=== PATIENT | female | born 1945 | race Caucasian/White ===

== ENCOUNTER → 2016-07-22 | Outpatient (CLI) | payer MEDICARE, OTHER ==
[~2016-07-22] MED LIST: ALEN70TA4 PO; ALPR-411 PO; AMLO-114 PO; APR25 PO; ASPEC325 PO; ASPI325T39 PO; CALC500C70 PO; CARB1TAB38 PO; CARB200T PO; CHOL100010 PO; CHOL20009 PO; DULO-24 PO; FURO-85 PO; FURO20TA PO; IMDSR30 PO; LEVO112T4 PO; LEVO125T72 PO; METO100T14 PO; METO50TA16 PO; MULT-506 PO; OMEP20CA59 PO; ONDA4TAB7 SL; PRLSR20 PO; SIMV20TA2 PO; TELM80TA PO; sodium chloride tab PO
--- NOTE | 2016-07-22 10:19 | DIAGNOSTIC IMAGING REPORT ---
DUPLEX RENAL ARTERY ultrasound HISTORY: I10 Hypertension COMPARISON STUDY: None. FINDINGS: The right kidney measures 9.8 cm and the left kidney measures 11.3 cm. There is a 9 mm exophytic lesion within the right kidney which likely represents a cyst. No hydronephrosis. The peak systolic velocity within the mid right renal artery was 120 cm/s and within the mid left renal artery was 154 cm/s. Resistive indices of the bilateral renal arcuate arteries were less than 0.8. Bilateral renal veins are patent. IMPRESSION: No evidence for renal artery stenosis. Electronically signed by: Tera Zamudio M.D. 07/22/2016 10:17 AM
== END | disposition home or self-care (01) ==
LOC: C.ULTR 09:16
PROVIDERS: ATTEND Internal Medicine
DX: I10 Essential (primary) hypertension (principal)

== ENCOUNTER → 2016-08-06 | Outpatient (CLI) | payer MEDICARE, OTHER ==
[2016-08-06 17:34] LABS: BLOOD UREA NITROGEN 12 mg/dl (7-18); BUN/CREATININE RATIO 14.7 (10-20); CALCIUM 8.9 mg/dl (8.5-10.1); CARBON DIOXIDE 31 mmol/L (21-32); CHLORIDE 98 mmol/L (98-107); CREATININE 0.79 mg/dl (0.60-1.20); GLUCOSE 91 mg/dl (70-99); PHOSPHORUS 3.3 mg/dl (2.5-4.9); SODIUM 137 mmol/L (136-145)
== END | disposition home or self-care (01) ==
LOC: C.LABBFT 12:43
PROVIDERS: ATTEND Internal Medicine Nephrology
DX: I10 Essential (primary) hypertension (principal); E87.1 Hypo-osmolality and hyponatremia

== ENCOUNTER → 2016-09-22 | Outpatient (CLI) | payer MEDICARE ==
--- NOTE | 2016-09-22 15:30 | MAMMOGRAPHY REPORT ---
BILATERAL DIGITAL SCREENING MAMMOGRAM WITH CAD: 09/22/2016 TECHNIQUE: Current study was also evaluated with a Computer Aided Detection (CAD) system. Bilatera l CC and MLO views were obtained. COMPARISON: Comparison is made to exams dated: 09/22/2015 mammogram, 09/19/2014 mammogram, 09/11/2012 ma mmogram, 09/08/2011 mammogram, and 09/12/2013 mammogram - [facility]. BREAST COMPOSITION: There are scattered areas of fibroglandular density in both breasts. FINDINGS: No suspicious masses, calcifications, or areas of architectural distortion are noted in e ither breast. There has been no significant interval change compared to prior exams. IMPRESSION: ACR BI-RADS CATEGORY 1: NEGATIVE There is no mammographic evidence of malignancy. A 1 year screening mammogram is recommended. The p atient will receive written notification of the results. Approximately 10% of breast cancers are not detected with mammography. A negative mammographic repor t should not delay biopsy if a clinically suggestive mass is present. Jewels Brooks M.D. ah/:09/22/2016 12:40:59 Shore Worker: Debora WHITE(Daniel)(M), [facility] letter sent: Normal 1/2 BI-RADS Code: ACR BI-RADS Category 1: Negative
== END | disposition home or self-care (01) ==
LOC: C.MAMM 11:28
PROVIDERS: ATTEND Internal Medicine
DX: Z12.31 Encounter for screening mammogram for malignant neoplasm of breast (principal)

== ENCOUNTER → 2016-10-06 | Outpatient (CLI) | payer MEDICARE ==
[2016-10-06 13:03] LABS: BLOOD UREA NITROGEN 9 mg/dl (7-18); GLUCOSE 93 mg/dl (70-99)
[2016-10-06 13:04] LABS: BUN/CREATININE RATIO 13.6 (10-20); CALCIUM 8.8 mg/dl (8.5-10.1); CARBON DIOXIDE 33 mmol/L (21-32); CHLORIDE 96 mmol/L (98-107); CREATININE 0.69 mg/dl (0.60-1.20); PHOSPHORUS 3.6 mg/dl (2.5-4.9); SODIUM 134 mmol/L (136-145)
== END | disposition home or self-care (01) ==
LOC: C.LABBFT 11:17
PROVIDERS: ATTEND Internal Medicine Nephrology
DX: I10 Essential (primary) hypertension (principal); E87.1 Hypo-osmolality and hyponatremia; E03.9 Hypothyroidism, unspecified

== ENCOUNTER → 2016-10-21 | Outpatient (CLI) | payer MEDICARE ==
[~2016-10-21] MED LIST changes: -CARB1TAB38 PO; +CARB400T3 PO
[2016-10-21 17:48] LABS: BLOOD UREA NITROGEN 9 mg/dl (7-18); BUN/CREATININE RATIO 11.3 (10-20); CALCIUM 8.5 mg/dl (8.5-10.1); CARBON DIOXIDE 29 mmol/L (21-32); CHLORIDE 100 mmol/L (98-107); CREATININE 0.78 mg/dl (0.60-1.20); GLUCOSE 99 mg/dl (70-99); POTASSIUM 3.6 mmol/L (3.5-5.1); SODIUM 136 mmol/L (136-145)
[2016-10-21 17:49] LABS: PHOSPHORUS 3.2 mg/dl (2.5-4.9)
== END | disposition home or self-care (01) ==
LOC: C.LABBFT 12:20
PROVIDERS: ATTEND Internal Medicine Nephrology
DX: I10 Essential (primary) hypertension (principal); E87.1 Hypo-osmolality and hyponatremia; E55.9 Vitamin D deficiency, unspecified

== ENCOUNTER → 2016-11-15 | Outpatient (CLI) | payer MEDICARE ==
[2016-11-15 12:19] LABS: BASO % 0.4 %; BASO ABS # 0.02 K/uL (0-0.2); COMPLETE YES; EOS % 2.2 %; HEMATOCRIT 38.5 % (37-47); LYMPH % 41.2 %; LYMPH ABS # 2.05 K/uL (1.2-3.4); MEAN CELL VOLUME 88.1 fL (80-100); MEAN CORPUSCULAR HEMOGLOBIN 30.7 pg (25-34); MEAN CORPUSCULAR HGB CONC 34.8 g/dl (32-36); MEAN PLATELET VOLUME 9.8 fL (7.4-10.4); MONO % 7.2 %; PLATELET COUNT 313 K/uL (130-400); RED BLOOD COUNT 4.37 M/uL (4.2-5.4); WHITE BLOOD COUNT 4.98 K/uL (4.8-10.8)
[2016-11-15 12:49] LABS: ALB/GLOB RATIO 1.1 (0.9-2); ALKALINE PHOSPHATASE 67 U/L (45-117); ALT/SGPT 21 U/L (12-78); AST/SGOT 13 U/L (15-37); BLOOD UREA NITROGEN 10 mg/dl (7-18); BUN/CREATININE RATIO 14.8 (10-20); CALCIUM 8.7 mg/dl (8.5-10.1); CARBON DIOXIDE 29 mmol/L (21-32); CHLORIDE 99 mmol/L (98-107); CREATININE 0.69 mg/dl (0.60-1.20); ESTIMATED AVERAGE GLUCOSE 117 mg/dl; GLUCOSE 92 mg/dl (70-99); HA1C FLAG Normal (Normal); HDL CHOLESTEROL 73 mg/dl; SODIUM 134 mmol/L (136-145)
[2016-11-15 13:00] LABS: CHOLESTEROL 174 mg/dl (0-200); CHOLESTEROL/HDL RATIO 2.4; LDL CHOLESTEROL CALCULATED 74 mg/dl; THYROID STIMULATING HORMONE 0.961 uIu/ml (0.300-4.500); TRIGLYCERIDES 134 mg/dl (0-150); VERY LOW DENSITY LIPOPROT CALC 27 mg/dl
[2016-11-15 13:20] LABS: URINE APPEARANCE CLEAR (CLEAR); URINE BILIRUBIN NEG (NEG); URINE COLOR YELLOW; URINE EPITHELIAL CELL AUTO >30 /lpf (0-5); URINE NITRITE NEG (NEG); URINE SPECIFIC GRAVITY 1.016 (1.000-1.030); UROBILINOGEN NEG (NEG); ZZUR CULT IF INDIC CLEAN CATCH YES
[2016-11-15 13:33] LABS: MANUAL MICROSCOPIC REQUIRED? NO; REVIEW REQ? NO
--- NOTE | 2016-11-22 09:19 | CODING QUERY MEDICAL NECESSITY ---
CQSUPPORTING DIAGNOSIS NEEDED A supporting diagnosis is required for the test/procedure performed on this patient in order for us to be reimbursed by the patient's insurance. Please provide a supporting diagnosis for the following test/procedure listed below next to the test name along with your signature. *If there is no additional diagnosis for this patient that would support the following test/procedure please document that below next to the test/procedure. Test(s)/Procedure(s) that require a supporting diagnosis: SHANT 11/15/16 GLYCATED HEMOGLOBIN Provider Signature: Date: Thank you Alayna Kemp [employer] Once completed, please kindly fax back to [phone] For questions please call [phone]
== END | disposition home or self-care (01) ==
LOC: C.LABBFT 10:12
PROVIDERS: ATTEND Internal Medicine
DX: G40.909 Epilepsy, unspecified, not intractable, without status epilepticus (principal); E78.5 Hyperlipidemia, unspecified; D72.819 Decreased white blood cell count, unspecified; E55.9 Vitamin D deficiency, unspecified; R73.03 Prediabetes; E03.9 Hypothyroidism, unspecified

== ENCOUNTER → 2017-01-28 | Day surgery (SDC) | payer BC, MEDICARE, OTHER ==
[2017-01-24 10:51] VITALS: Ht 160 cm; Wt 72.7 kg
[~2017-01-28] VITALS: Ht 160 cm; Wt 72.7 kg
[~2017-01-28] MED LIST changes: -APR25 PO; -ASPEC325 PO; +CARB1TAB38 PO; -CARB200T PO; -CARB400T3 PO; -CHOL100010 PO; -FURO20TA PO; -IMDSR30 PO; -LEVO125T72 PO; +LIDOCAINE HCL 2% 2 ML VIAL (20MG/ML) ONE; -METO50TA16 PO; -OMEP20CA59 PO; -ONDA4TAB7 SL; +PROPOFOL IV EMULSION 10 MG/ML 20 ML VIAL IV ONE; -sodium chloride tab PO
[2017-01-28 09:20] VITALS: TEMP 37
--- NOTE | 2017-01-28 10:25 | Endo History and Physical ---
History & Physical Date of Service: Jan 28, 2017. Chief Complaint: screening Referring Physician: Dr. David Bishop History of Present Illness 72 yo CF who presents for screening colonoscopy. Past Surgical History Hx Cardiac Surgery: No Hx Internal Defibrillator: No Hx Pacemaker: No Hx Abdominal Surgery: Yes (RAHEL, TUBAL LIGATION) Hx of Implantable Prosthesis: No Hx Post-Op Nausea and Vomiting: No Hx Cancer Surgery: No Hx Thoracic Surgery: No Hx Orthopedic: No Hx Urinary Tract Surgery: No Family History Colon CA Social History Smoking Status: Former Smoker Hx Substance Use: No Hx Alcohol Use: Yes (VERY RARELY) Allergies Coded Allergies: No Known Allergies (Verified , 01/28/17) Current Medications Reported Home Medications Medications Dose Route/Sig Max Daily Dose Days Date Category Vitamin D (Cholecalciferol) 2,000 Unit Tab 1 Tab PO BID 01/24/17 Reported Micardis (Telmisartan) 80 Mg Tab 80 Mg PO QAM 01/24/17 Reported Zocor (Simvastatin) 20 Mg Tab 20 Mg PO QPM 01/24/17 Reported Prilosec (Omeprazole) 20 Mg Capcr 20 Mg PO DAILY PRN 01/24/17 Reported Multivitamin (Multivitamins) Tab 1 Tab PO QAM 01/24/17 Reported Lopressor (Metoprolol Tartrate) 100 Mg Tab 100 Mg PO BID 01/24/17 Reported Levothyroxine Sodium 112 Mcg Tab 1 Tab PO QAM 90 01/24/17 Reported Lasix (Furosemide) 20 Mg Tab 20 Mg PO BID 01/24/17 Reported Cymbalta (Duloxetine HCl) 20 Mg Cap 1 Cap PO QAM 30 01/24/17 Reported Tegretol Xr (Carbamazepine) 400 Mg Tabcr 400 Mg PO BID 01/24/17 Reported Os-David 500 Plus D (Calcium/Vitamin D) Tab 1 Tab PO QAM 01/24/17 Reported Aspirin Ec (Aspirin) 325 Mg Tab 325 Mg PO QAM 01/24/17 Reported Norvasc (Amlodipine Besylate) 10 Mg Tab 10 Mg PO QAM 01/24/17 Reported Xanax (Alprazolam) 0.5 Mg Tab 0.5 Mg PO Q6H PRN 01/24/17 Reported Fosamax (Alendronate Sodium) 70 Mg Tab 70 Mg PO WK 01/24/17 Reported Vital Signs Weight (Kilograms): 72.73 Height (Feet): 5 Height (Inches): 3 Date Time Temp Pulse Resp B/P (MAP) Pulse Ox O2 Delivery O2 Flow Rate FiO2 01/28/17 09:20 37 58 20 180/79 (112) 96 Room Air Physical Exam General Appearance: WD/WN, no apparent distress Respiratory/Chest: Auscultation: breath sounds normal Cardiovascular: Heart Auscultation: RRR Abdomen: Bowel Sounds: normal Inspection & Palpation: soft, non-distended, no tenderness, guarding & rebound Assessment and Plan Assessment: 72 yo CF who presents for screening colonoscopy. Plan: Proceed with colonoscopy.
--- NOTE | 2017-01-28 10:42 | Discharge Instructions ---
Endoscopy Patient Instructions Date / Procedure(s) Performed Jan 28, 2017. Colonoscopy Allergy Information Coded Allergies: No Known Allergies (Verified , 01/28/17) Discharge Date / Findings Jan 28, 2017. Diverticulosis Internal hemorrhoids Medication Instructions Stopped Medication(s): took ASA yesterday OK to resume all medications today as prescribed Reported Home Medications Medications Dose Route/Sig Max Daily Dose Days Date Category Vitamin D (Cholecalciferol) 2,000 Unit Tab 1 Tab PO BID 01/24/17 Reported Micardis (Telmisartan) 80 Mg Tab 80 Mg PO QAM 01/24/17 Reported Zocor (Simvastatin) 20 Mg Tab 20 Mg PO QPM 01/24/17 Reported Prilosec (Omeprazole) 20 Mg Capcr 20 Mg PO DAILY PRN 01/24/17 Reported Multivitamin (Multivitamins) Tab 1 Tab PO QAM 01/24/17 Reported Lopressor (Metoprolol Tartrate) 100 Mg Tab 100 Mg PO BID 01/24/17 Reported Levothyroxine Sodium 112 Mcg Tab 1 Tab PO QAM 90 01/24/17 Reported Lasix (Furosemide) 20 Mg Tab 20 Mg PO BID 01/24/17 Reported Cymbalta (Duloxetine HCl) 20 Mg Cap 1 Cap PO QAM 30 01/24/17 Reported Tegretol Xr (Carbamazepine) 400 Mg Tabcr 400 Mg PO BID 01/24/17 Reported Os-David 500 Plus D (Calcium/Vitamin D) Tab 1 Tab PO QAM 01/24/17 Reported Aspirin Ec (Aspirin) 325 Mg Tab 325 Mg PO QAM 01/24/17 Reported Norvasc (Amlodipine Besylate) 10 Mg Tab 10 Mg PO QAM 01/24/17 Reported Xanax (Alprazolam) 0.5 Mg Tab 0.5 Mg PO Q6H PRN 01/24/17 Reported Fosamax (Alendronate Sodium) 70 Mg Tab 70 Mg PO WK 01/24/17 Reported Provider Instructions Activity Restrictions - No exercising or heavy lifting for 24 hours. - Do not drink alcohol the day of the procedure. - Do not drive a car or operate machinery until the day after the procedure. - Do not make any important decisions or sign important papers in 24 hours after the procedure. Following Day: - Return to full activity which may include returning to work/school. Diet Start your diet with liquids and light foods (jello, soup, juice, toast). Then eat your usual diet if not nauseated. Treatment For Common After Affects For mild abdominal pain, bloating, or excessive gas: - Rest - Eat lightly - Lie on right side Follow-Up Information Follow-up with Dr. David Bishop as scheduled Anesthesia Information What You Should Know You have had a procedure that required some medicine to reduce anxiety and discomfort. This treatment is called moderate sedation. After receiving the treatment, you may be sleepy, but you will be able to breathe on your own. The effects of the treatment may last for several hours. Follow these instructions along with Activity/Diet recommendations noted above: * Do NOT do anything where dizziness or clumsiness would be dangerous. * Rest quietly at home today, then you can be up and about tomorrow. * Have a responsible person stay with you the rest of today. * You may have had an I.V. today. If so, you may take the dressing off later today. Recommendations Call your doctor if: * Trouble breathing * Continuous vomiting for more than 24 hours * Temperature above 101 degrees * Severe abdominal pain or bloating * Pain not relieved by pain medicine ordered * There is increased drainage or redness from any incision * A large amount of rectal bleeding greater than 2-3 tablespoons. (If you had a polyp/s removed or have hemorrhoids, a small amount of blood - from the rectum is to be expected.) * You have any unanswered questions or concerns. IN THE EVENT OF A SERIOUS EMERGENCY, GO TO THE NEAREST EMERGENCY ROOM Your discharge instructions were prepared by provider Marty Cade. Patient Instructions Signature Page Jossie Colón Patient (or Guardian) Signature/Date: I have read and understand the instructions given to me by my caregivers. Caregiver/RN/Doctor Signature/Date: The above-named patient and/or guardian has received patient instructions on this date. + Original Patient Signature Page (only) stays with chart. Please make copy for patient.
--- NOTE | 2017-01-28 10:46 | Anesthesiology Progress Note ---
Anesthesia Post Op Note Date & Time Jan 28, 2017 at 10:46 Vital Signs Pain Intensity: 0 Vital Signs Past 12 Hours Date Time Temp Pulse Resp B/P (MAP) Pulse Ox O2 Delivery O2 Flow Rate FiO2 01/28/17 09:20 37 58 20 180/79 (112) 96 Room Air Notes Mental Status: alert / awake / arousable, participated in evaluation Pt Amnestic to Procedure: Yes Nausea / Vomiting: adequately controlled Pain: adequately controlled Airway Patency, RR, SpO2: stable & adequate BP & HR: stable & adequate Hydration State: stable & adequate Anesthetic Complications: no major complications apparent
--- NOTE | 2017-01-28 10:49 | GI REPORT ---
Procedure Date: 01/28/2017 10:06 AM Procedure: Colonoscopy Indications: High risk colon cancer surveillance: Personal history of colonic polyps Medicines: Monitored Anesthesia Care Complications: No immediate complications. Estimated Blood Loss: Estimated blood loss: none. Procedure: Pre-Anesthesia Assessment: - Prior to the procedure, a History and Physical was performed, and patient medications and allergies were reviewed. The patient's tolerance of previous anesthesia was also reviewed. The risks and benefits of the procedure and the sedation options and risks were discussed with the patient. All questions were answered, and informed consent was obtained. Prior Anticoagulants: The patient has taken aspirin, last dose was 1 day prior to procedure. ASA Grade Assessment: III - A patient with severe systemic disease. After reviewing the risks and benefits, the patient was deemed in satisfactory condition to undergo the procedure. After I obtained informed consent, the scope was passed under direct vision. Throughout the procedure, the patient's blood pressure, pulse, and oxygen saturations were monitored continuously. The Scope was introduced through the anus and advanced to the terminal ileum. The colonoscopy was performed without difficulty. The patient tolerated the procedure well. The quality of the bowel preparation was good. The terminal ileum, ileocecal valve, appendiceal orifice, and rectum were photographed. Findings: Multiple small-mouthed diverticula were found in the sigmoid colon. Non-bleeding internal hemorrhoids were found during retroflexion. The hemorrhoids were small. Impression: - Diverticulosis in the sigmoid colon. - Non-bleeding internal hemorrhoids. - No specimens collected. Recommendation: - Resume previous diet. - Continue present medications. - Repeat colonoscopy in 5 years for surveillance. - Return to primary care physician as previously scheduled. Marty Cade DO 01/28/2017 10:48:28 AM This report has been signed electronically. Note Initiated On: 01/28/2017 10:06 AM I attest to the content of the Intraoperative Record and orders documented therein, exceptions below
[2017-01-28 11:18] VITALS: BP 147/81; PULSE 47; O2SAT 98
== END | disposition home or self-care (01) ==
LOC: C.GI 08:53
PROVIDERS: ATTEND Internal Medicine
DX: Z12.11 Encounter for screening for malignant neoplasm of colon (principal); Z86.010 Personal history of colon polyps; K57.30 Diverticulosis of large intestine without perforation or abscess without bleeding; K64.8 Other hemorrhoids; Z80.0 Family history of malignant neoplasm of digestive organs; Z87.891 Personal history of nicotine dependence; Z79.82 Long term (current) use of aspirin; Z79.899 Other long term (current) drug therapy

== ENCOUNTER 2017-02-08 05:14 | Observation (INO) | payer MEDICARE ==
[~2017-02-08] VITALS: Ht 160 cm; Wt 76.5 kg
[~2017-02-08 05:14] MED LIST changes: -LIDOCAINE HCL 2% 2 ML VIAL (20MG/ML) ONE; -PROPOFOL IV EMULSION 10 MG/ML 20 ML VIAL IV ONE
[2017-02-08 06:26] LABS: HEMATOCRIT 40.4 % (37-47); MEAN CELL VOLUME 87.6 fL (80-100); MEAN CORPUSCULAR HEMOGLOBIN 30.4 pg (25-34); MEAN CORPUSCULAR HGB CONC 34.7 g/dl (32-36); MEAN PLATELET VOLUME 9.3 fL (7.4-10.4); PLATELET COUNT 297 K/uL (130-400); RED BLOOD COUNT 4.61 M/uL (4.2-5.4); WHITE BLOOD COUNT 8.97 K/uL (4.8-10.8)
[2017-02-08 06:33] LABS: CALCIUM 8.3 mg/dl (8.5-10.1); CREATININE 0.82 mg/dl (0.60-1.20); POTASSIUM 3.3 mmol/L (3.5-5.1)
[2017-02-08 06:34] LABS: INR 0.9 (0.9-1.1); PROTHROMBIN TIME (PATIENT) 10.1 SECONDS (9.0-12.0)
[2017-02-08] MEDS ORDERED: LABETALOL HCL IV 5 MG/ML 20ML IV STA ×2 (06:37→07:43)
[2017-02-08 06:38] LABS: CKMB/CK RATIO 1.2 (0-3.0)
--- NOTE | 2017-02-08 06:38 | DIAGNOSTIC IMAGING REPORT ---
CHEST ONE VIEW PORTABLE CLINICAL HISTORY: Indigestion. COMPARISON STUDY: Chest radiograph November 11, 2010. FINDINGS: Lung volumes are normal. There is no pneumothorax or pleural effusion. Linear left basilar opacities are suggestive of atelectasis. There is no evidence of pulmonary edema. Dextroscoliosis of the thoracic spine is noted. There are surgical clips within the lower neck. Cardiomediastinal silhouette is stable. There is no consolidation. IMPRESSION: No acute cardiopulmonary findings. Electronically signed by: Jesus Carter M.D. 02/08/2017 6:37 AM Dictated Date/Time: 02/08/2017 6:35 AM
--- NOTE | 2017-02-08 07:20 | EMERGENCY ROOM VISIT NOTE ---
History Report prepared by Clark: Alexandra Rizo Under the Supervision of: Dr. Abdulaziz Roger M.D. First contact with patient: 06:31 Chief Complaint: RAPID HEART RATE Stated Complaint: HEART RACING,HIGH BLOOD PRESSURE Nursing Triage Summary: Pt complains of indigestion since dinner after eating banana bread. Then pt woke up with palpitations at 130am. History of Present Illness The patient is a 72 year old female who presents to the Emergency Room with complaints of resolved palpitations that started 5 hours ago, around 0130. The patient states that it felt like her heart was racing. She did not check her pulse but she states that she could feel it in her neck. She states that her face felt "flushed" with the palpitations. The feeling lasted for several hours but she feels well now. The patient has never experienced this in the past. The patient is also experiencing hypertension. She takes medication twice a day for hypertension but she is unsure of what the medication is called. The patient denies headaches, chest pain, and any weakness of her extremities. The patient adds that she experienced "indigestion" last night after dinner but that resolved after she belched a few times. She is also experiencing some mild abdominal pain. The patient denies any excessive coffee or alcohol consumption last night. Patient took 324mg ASA prior to arrival. Source of History: patient Onset: 5 hours ago, around 0130 Position: chest Quality: other (palpitations) Timing: resolved Associated Symptoms: No headache, No chest pain, No weakness Note: "flushed" feeling, hypertension Review of Systems See HPI for pertinent positives & negatives. A total of 10 systems reviewed and were otherwise negative. Past Medical & Surgical Medical Problems: (1) Heart disease (2) Hypertension (3) Palpitations Surgical Problems: (1) History of hysterectomy Family History Cancer Gallbladder disease Heart disease Social History Smoking Status: Former Smoker Alcohol Use: none Marital Status: Occupation Status: employed Current/Historical Medications Scheduled Alendronate Sodium (Fosamax), 70 MG PO WK Amlodipine (Norvasc), 10 MG PO QAM Aspirin (Aspirin Ec), 325 MG PO QAM Calcium/Vitamin D (Os-David 500 Plus D), 1 TAB PO QAM Carbamazepine Extended Release (Tegretol Xr), 400 MG PO BID Cholecalciferol (Vitamin D), 2,000 UNIT PO BID Duloxetine HCl (Cymbalta), 20 MG PO QAM Furosemide (Lasix), 20 MG PO BID Levothyroxine Sodium (Levothyroxine Sodium), 112 MCG PO QAM Metoprolol Tartrate (Lopressor) (Lopressor), 100 MG PO BID Multivitamin (Multivitamin), 1 TAB PO QAM Simvastatin (Zocor), 20 MG PO QPM Telmisartan (Micardis), 80 MG PO QAM Scheduled PRN Alprazolam (Xanax), 0.5 MG PO Q6H PRN for Anxiety Omeprazole (Prilosec), 20 MG PO DAILY PRN for Indigestion Allergies Coded Allergies: No Known Allergies (Verified , 02/08/17) Physical Exam Vital Signs Date Time Temp Pulse Resp B/P (MAP) Pulse Ox O2 Delivery O2 Flow Rate FiO2 02/08/17 07:19 70 18 185/98 97 Room Air 02/08/17 07:00 182/97 02/08/17 06:32 71 16 193/98 96 Room Air 02/08/17 06:22 73 16 205/103 96 Room Air 02/08/17 06:21 96 Room Air 02/08/17 06:21 96 Room Air 02/08/17 05:37 98 Room Air 02/08/17 05:33 83 02/08/17 05:16 36.8 88 20 222/103 97 Room Air Physical Exam GENERAL: Patient is anxious appearing and in no acute distress. HEENT: No acute trauma, normocephalic atraumatic, mucous membranes moist, no nasal congestion, no scleral icterus. NECK: No stridor, no adenopathy, no meningismus, trachea is midline. LUNGS: No dyspnea. Clear to auscultation and equal bilaterally. No wheeze, no rhonchi. HEART: Regular rate and rhythm. No murmurs, rubs, gallops appreciated. ABDOMEN: Soft, nontender, bowel sounds positive, no masses appreciated, no peritonitis. BACK: No midline tenderness, no CVA tenderness EXTREMITIES: Normal motion all extremities, no cyanosis, no edema. NEUROLOGIC: Alert and oriented, no acute motor or sensory deficits, no focal weakness, cranial nerves grossly intact. SKIN: No rash, no jaundice, no diaphoresis. Medical Decision & Procedures Laboratory Results 02/08/17 05:30 02/08/17 05:30 Test 02/08/17 05:30 Red Blood Count 4.61 M/uL (4.2-5.4) Mean Corpuscular Volume 87.6 fL (80-100) Mean Corpuscular Hemoglobin 30.4 pg (25-34) Mean Corpuscular Hemoglobin Concent 34.7 g/dl (32-36) RDW Standard Deviation 38.5 fL (36.4-46.3) RDW Coefficient of Variation 12.0 % (11.5-14.5) Mean Platelet Volume 9.3 fL (7.4-10.4) Prothrombin Time 10.1 SECONDS (9.0-12.0) Prothromb Time International Ratio 0.9 (0.9-1.1) Activated Partial Thromboplast Time 25.4 SECONDS (21.0-31.0) Partial Thromboplastin Ratio 1.0 Anion Gap 9.0 mmol/L (3-11) Est Creatinine Clear Calc Drug Dose 61.5 ml/min Estimated GFR () 83.4 Estimated GFR (Non- 72.0 BUN/Creatinine Ratio 15.0 (10-20) Calcium Level 8.3 mg/dl (8.5-10.1) Total Bilirubin 0.2 mg/dl (0.2-1) Aspartate Amino Transf (AST/SGOT) 18 U/L (15-37) Alanine Aminotransferase (ALT/SGPT) 20 U/L (12-78) Alkaline Phosphatase 66 U/L (45-117) Total Creatine Kinase 83 U/L (26-192) Creatine Kinase MB 1.0 ng/ml (0.5-3.6) Creatine Kinase MB Ratio 1.2 (0-3.0) Total Protein 8.1 gm/dl (6.4-8.2) Albumin 4.0 gm/dl (3.4-5.0) Globulin 4.1 gm/dl (2.5-4.0) Albumin/Globulin Ratio 1.0 (0.9-2) Laboratory results as reviewed by me. Medications Administered Medications (Trade) Dose Ordered Sig/Opal Route Start Time Stop Time Status Last Admin Dose Admin Labetalol HCl (Normodyne IV) 10 mg NOW STAT IV 02/08/17 06:37 02/08/17 06:38 DC 02/08/17 06:52 10 MG ECG Indication: palpitations Rate (beats per minute): 81 Rhythm: normal sinus Findings: no acute ischemic change, no ectopy, other (poor lateral baseline) Comparison ECG Date: 12/19/2011 Change: no significant change ED Course 0632: The patient was evaluated in room B3. A complete history and physical exam was performed. Medical Decision Differential: NSR, SVT, PACs, PVCs, Cardiac Dysrhythmia, Endocrine Dysfunction, Eletrolyte/Metabolic Abnormality, Pulmonary Embolism, Infectious, GI, amongst other pathologies entertained. 72 yr old female arrives after having palpitations and diaphoresis overnight for several hours. Resolved now and feeling much improved. No history of this. Took ASA 324mg at home. EKG unchanged from previous. Trop is bumped in setting of normal cr. Presume cardiac origin. As no currently symptoms and non -typical for ACS will hold on heparin currently. Was quite hypertensive which responds well to Labetalol x 2. HTN could be cause of Trop bump. Will need further work up and evaluation. Impression Primary Impression: Tachycardia Additional Impressions: Palpitations Elevated troponin Hypertension Scribe Attestation The scribe's documentation has been prepared under my direction and personally reviewed by me in its entirety. I confirm that the note above accurately reflects all work, treatment, procedures, and medical decision making performed by me. Departure Information Referrals David Bishop M.D. (PCP) Patient Instructions My [facility] Problem Qualifiers
[2017-02-08] MEDS ORDERED: ONDANSETRON INJ 2 MG/ML 2 ML VIAL IV PRN (07:30)
[2017-02-08] MEDS ORDERED: ACETAMINOPHEN 325 MG TAB PO PRN (07:30)
[2017-02-08] MEDS ORDERED: NITROGLYCERIN 0.4 MG SL PER TAB CHARGE SL PRN (07:30)
[2017-02-08] MEDS ORDERED: MoRPHine SULFATE 2 MG/ML CARP IV PRN (07:30)
[2017-02-08 07:43] VITALS: O2SAT 97; Ht 160 cm; Wt 76.5 kg
[2017-02-08] MEDS ORDERED: IV FLUIDS COMPLETED PRN (08:30)
[2017-02-08 08:31] VITALS: BP 169/82
[2017-02-08] MEDS: ASPIRIN 325 MG ECTAB PO SCH (10:00)
[2017-02-08] MEDS: FUROSEMIDE 20 MG TAB PO SCH ×2 (10:01→18:11)
[2017-02-08] MEDS: AMLODIPINE BESYLATE 5 MG TAB PO SCH (10:01)
[2017-02-08] MEDS: TELMISARTAN 40 MG TAB PO SCH (10:02)
[2017-02-08] MEDS: METOPROLOL TARTRATE 100 MG TAB PO SCH ×2 (10:02→21:00)
[2017-02-08] MEDS: DULOXETINE HCL 20 MG CAP PO SCH (10:02)
--- NOTE | 2017-02-08 11:07 | Medical Student: [facility] ---
Med Student History & Physical Date & Time of Service: Feb 08, 2017 at 10:59 Chief Complaint: Hypertension, Palpitations Primary Care Physician: David Bishop M.D. 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 She states that she could feel her heartbeat in her neck. She states that the palpitations started at 0100 and did not resolve on their own so she she woke her . He took her blood pressure with their home BP cuff and it was 202/103. She then took a 325mg aspirin and went to the ED. She reports associated sensation of facial flushing but denies any chest pain/pressure, shortness of breath, diaphoresis, nausea, vomiting, headache, dizziness, vision changes, weakness, numbness/tinging. She denies any exacerbating or relieving factors. She denies ever feeling palpitations before. She denies any recent medication changes. She does report having some indigestion last night after dinner for which she took her omeprazole but otherwise felt her normal self yesterday. Upon arrival to the ED her blood pressure 222/103. She had a dose of 10mg labetolol and her BP responded to 182/97. She reported relief of her palpitations at this time. She was given another dose of labetolol 20mg an hour later and her BP responded to 169/82. She had a mild elevation of troponin 0.071 with nonspecific T wave abnormality of V1 on EKG, unchanged from prior EKG. CXR was negative for any acute cardiopulmonary abnormalities. She had mild hypokalemia on labs. Past Medical/Surgical History Medical Problems: (1) Elevated troponin Status: Acute (2) Heart disease Status: Chronic (3) Hypertension Status: Chronic (4) Tachycardia Status: Acute Surgical Problems: (1) History of hysterectomy Status: Chronic Family History She reports a history of colon cancer in her father at age 72. Her mother had hypertension. She also reports a history of anxiety in her mother. Social History Smoking Status: Former Smoker (1 -2 packs per week, quit 25 years ago) Alcohol Use: socially Marital Status: Housing status: lives with significant other Occupational Status: retired Immunizations History of Influenza Vaccine: No History of Tetanus Vaccine?: Yes Tetanus Immunization Date: Apr 10, 2008 History of Pneumococcal: Yes Pneumococcal Date: May 10, 2010 History of Hepatitis B Vaccine: No Allergies Coded Allergies: No Known Allergies (Verified , 02/08/17) Medications Alendronate Sodium (Fosamax), 70 MG PO WK Alprazolam (Xanax), 0.5 MG PO Q6H PRN for Anxiety Amlodipine (Norvasc), 10 MG PO QAM Aspirin (Aspirin Ec), 325 MG PO QAM Calcium/Vitamin D (Os-David 500 Plus D), 1 TAB PO QAM Carbamazepine Extended Release (Tegretol Xr), 400 MG PO BID Cholecalciferol (Vitamin D), 2,000 UNIT PO BID Duloxetine HCl (Cymbalta), 20 MG PO QAM Furosemide (Lasix), 20 MG PO BID Levothyroxine Sodium (Levothyroxine Sodium), 112 MCG PO QAM Metoprolol Tartrate (Lopressor) (Lopressor), 100 MG PO BID Multivitamin (Multivitamin), 1 TAB PO QAM Omeprazole (Prilosec), 20 MG PO DAILY PRN for Indigestion Simvastatin (Zocor), 20 MG PO QPM Telmisartan (Micardis), 80 MG PO QAM Review of Systems Constitutional: No fever, No chills, No sweats Eyes: No worsening of vision, No diplopia ENT: No sore throat, No trouble swallowing Respiratory: No cough, No shortness of breath Cardiovascular: + palpitations, No chest pain, No orthopnea, No edema Abdomen: No pain, No nausea, No vomiting Genitourinary - Female: No dysuria, No urinary frequency, No urinary urgency Neurologic: + balance problems (hx of CVA 5 years ago with mild deficits to right lower extremiy), No weakness, No numbness/tingling Psychiatric: + anxiety, No depression symptoms Integumentary: No rash, No color change Physical Exam Vital Signs (24 Hours) Date Time Temp Pulse Resp B/P (MAP) Pulse Ox O2 Delivery O2 Flow Rate FiO2 02/08/17 08:31 169/82 (111) 02/08/17 08:00 177/114 02/08/17 07:54 76 18 184/102 95 Room Air 02/08/17 07:43 97 Room Air 02/08/17 07:19 70 18 185/98 97 Room Air 02/08/17 07:00 182/97 02/08/17 06:32 71 16 193/98 96 Room Air 02/08/17 06:22 73 16 205/103 96 Room Air 02/08/17 06:21 96 Room Air 02/08/17 06:21 96 Room Air 02/08/17 05:37 98 Room Air 02/08/17 05:33 83 02/08/17 05:16 36.8 88 20 222/103 97 Room Air General Appearance: WD/WN, no apparent distress Eyes: PERRL, EOMI ENT: hearing grossly normal, pharynx normal Neck: supple, no adenopathy, no JVD Respiratory/Chest: chest non-tender, lungs clear, normal breath sounds, no respiratory distress Cardiovascular: regular rate, rhythm, + systolic murmur Abdomen/GI: normal bowel sounds, non tender, soft Extremities/Musculoskelatal: normal capillary refill, no pedal edema Neurologic/Psych: photogrammetrist 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 as tested, no motor/sensory deficits, alert, normal mood/affect, oriented x 3, + pertinent finding (5/5 strenght in bilateral lower extremities to knee flexion/extension, plantarflexion and dorsiflexion of ankle) Skin: normal color, warm/dry Diagnostics Laboratory Results Results Past 24 Hours Test 02/08/17 05:30 Range/Units White Blood Count 8.97 4.8-10.8 K/uL Red Blood Count 4.61 4.2-5.4 M/uL Hemoglobin 14.0 12.0-16.0 g/dL Hematocrit 40.4 37-47 % Mean Corpuscular Volume 87.6 80-100 fL Mean Corpuscular Hemoglobin 30.4 25-34 pg Mean Corpuscular Hemoglobin Concent 34.7 32-36 g/dl RDW Standard Deviation 38.5 36.4-46.3 fL RDW Coefficient of Variation 12.0 11.5-14.5 % Platelet Count 297 130-400 K/uL Mean Platelet Volume 9.3 7.4-10.4 fL Prothrombin Time 10.1 9.0-12.0 SECONDS Prothromb Time International Ratio 0.9 0.9-1.1 Activated Partial Thromboplast Time 25.4 21.0-31.0 SECONDS Partial Thromboplastin Ratio 1.0 Sodium Level 138 136-145 mmol/L Potassium Level 3.3 3.5-5.1 mmol/L Chloride Level 100 98-107 mmol/L Carbon Dioxide Level 29 21-32 mmol/L Anion Gap 9.0 3-11 mmol/L Blood Urea Nitrogen 12 7-18 mg/dl Creatinine 0.82 0.60-1.20 mg/dl Est Creatinine Clear Calc Drug Dose 61.5 ml/min Estimated GFR () 83.4 Estimated GFR (Non- 72.0 BUN/Creatinine Ratio 15.0 10-20 Random Glucose 108 70-99 mg/dl Calcium Level 8.3 8.5-10.1 mg/dl Total Bilirubin 0.2 0.2-1 mg/dl Aspartate Amino Transf (AST/SGOT) 18 15-37 U/L Alanine Aminotransferase (ALT/SGPT) 20 12-78 U/L Alkaline Phosphatase 66 45-117 U/L Total Creatine Kinase 83 26-192 U/L Creatine Kinase MB 1.0 0.5-3.6 ng/ml Creatine Kinase MB Ratio 1.2 0-3.0 Troponin I 0.071 0-0.045 ng/ml Total Protein 8.1 6.4-8.2 gm/dl Albumin 4.0 3.4-5.0 gm/dl Globulin 4.1 2.5-4.0 gm/dl Albumin/Globulin Ratio 1.0 0.9-2 Diagnostic Radiology CHEST ONE VIEW PORTABLE CLINICAL HISTORY: Indigestion. COMPARISON STUDY: Chest radiograph November 11, 2010. FINDINGS: Lung volumes are normal. There is no pneumothorax or pleural effusion. Linear left basilar opacities are suggestive of atelectasis. There is no evidence of pulmonary edema. Dextroscoliosis of the thoracic spine is noted. There are surgical clips within the lower neck. Cardiomediastinal silhouette is stable. There is no consolidation. IMPRESSION: No acute cardiopulmonary findings. Electronically signed by: Jesus Carter M.D. 02/08/2017 6:37 AM Dictated Date/Time: 02/08/2017 6:35 AM EKG NSR 81 bpm. nonspecific T wave abnormality in V1. Impression Assessment and Plan 72 year old female with a past medical history of hypertension, rheumatic heart disease with mitral regurgitation and anxiety who presented with palpitations found to have hypertensive emergency with BP 222/103 and elevated troponin 0.071. Etiology of hypertensive emergency includes acute renal artery stenosis , hyperaldosteronism, hyperthyroidism, pheochromocytoma, anxiety, drug use or idiopathic. Less likely hyperthyroidism given recent normal labs and stable consistent dose of levothyroxine for many years. Possibly acute renovascular disease or hyperaldosteronism given the mild hypokalemia but remainder of labs normal with good kidney function. More likely anxiety or idiopathic given the acute presentation. Hypertensive Urgency - follows with Dr. Estes outpatient for management of HTN - renal US 07/2016 negative for renal artery stenosis - s/p labetalol 10mg + 20mg in ED - continue home metoprolol 100mg BID, amlodipine 10mg qAM, Telmisartan 80mg, Lasix 20mg BID - will start hydralazine 10mg TID - consider repeat renal artery duplex to evaluate for SID if no improvement in 24hrs Elevated Troponin - likely a type 2 NSTEMI secondary to hypertension - ECG NSR with ST abnormality in V1, unchanged from EKG in 2011 - morphine, nitro and O2 PRN chest pain - trend troponin q6hr, monitor on telemetry Hypothyroidism s/p total thyroidectomy 2011 for adenoma - last TSH .961 on 11/15/16 - continue levothyroxine 112mcg Valvular Heart Disease - follows with Dr. 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 - continue aspirin and statin FEN: cardiac diet Dispo: telemetry FULL CODE Level of Care Telemetry Advanced Directives Existing Living Will: Yes Existing Power of Color Making Supervisor: Yes Resuscitation Status FULL RESUSCITATION (OBS)
[2017-02-08 11:15] VITALS: BP_SYST 178; BP_SYST 184; BP_DIAS 73; BP_DIAS 92; PULSE 62; TEMP 37.1; O2SAT 96
[2017-02-08] MEDS: ALPRAZOLAM 0.5 MG TAB PO PRN ×2 (12:28→18:08)
--- NOTE | 2017-02-08 13:38 | History and Physical ---
History & Physical Date & Time of Service: Feb 08, 2017 at 13:27 Chief Complaint: Hypertension, Palpitations Primary Care Physician: David Bishop M.D. History of Present Illness Source: patient, family 72 yo female with h/o rheumatic valve disease, mitral regurgitation, hypertension who presented to the ED with several hours of palpitations that she felt in her left chest and her neck. She never had chest pain, never had difficulty breathing, never had dyspnea. No history of coronary disease. She has a stress echo every few years with Dr. Mansfield, scheduled this year for June. No family h/o CAD. The palpitations did not go away and she could not sleep. Took her blood pressure and it was quite elevated so she came to the ED. She has been following with Dr. Estes for difficult to control blood pressure as outpatient. She has seen him twice, he added Lasix BID. She had a renal artery doppler earlier in the year that was negative for renal artery stenosis. EKG was normal in the ED as was CXR. Troponin was 0.07. Normal sinus rhythm on monitor, no PVC's or afib seen. Past Medical/Surgical History Medical Problems: (1) Heart disease Status: Chronic (2) Hypertension Status: Chronic Surgical Problems: (1) History of hysterectomy Status: Chronic Family History Cancer Gallbladder disease Heart disease Social History Smoking Status: Former Smoker (1 -2 packs per week, quit 25 years ago) Alcohol Use: socially Marital Status: Housing status: lives with significant other Occupational Status: retired Immunizations History of Influenza Vaccine: No History of Tetanus Vaccine?: Yes Tetanus Immunization Date: Apr 10, 2008 History of Pneumococcal: Yes Pneumococcal Date: May 10, 2010 History of Hepatitis B Vaccine: No Multi-Drug Resistant Organisms History of MDRO: No Allergies Coded Allergies: No Known Allergies (Verified , 02/08/17) Home Medications Scheduled Alendronate Sodium (Fosamax), 70 MG PO WK Amlodipine (Norvasc), 10 MG PO QAM Aspirin (Aspirin Ec), 325 MG PO QAM Calcium/Vitamin D (Os-David 500 Plus D), 1 TAB PO QAM Carbamazepine Extended Release (Tegretol Xr), 400 MG PO BID Cholecalciferol (Vitamin D), 2,000 UNIT PO BID Duloxetine HCl (Cymbalta), 20 MG PO QAM Furosemide (Lasix), 20 MG PO BID Levothyroxine Sodium (Levothyroxine Sodium), 112 MCG PO QAM Metoprolol Tartrate (Lopressor) (Lopressor), 100 MG PO BID Multivitamin (Multivitamin), 1 TAB PO QAM Simvastatin (Zocor), 20 MG PO QPM Telmisartan (Micardis), 80 MG PO QAM Scheduled PRN Alprazolam (Xanax), 0.5 MG PO Q6H PRN for Anxiety Omeprazole (Prilosec), 20 MG PO DAILY PRN for Indigestion Review of Systems Constitutional: No fever, No chills, No sweats, No weight loss, No weakness, No fatigue, No problem reported Eyes: No worsening of vision, No eye pain, No redness, No discharge, No diplopia, No problem reported ENT: No hearing loss, No unusual epistaxis, No nasal symptoms, No sore throat, No tinnitus, No dental problems, No trouble swallowing, No problem reported Respiratory: No cough, No sputum, No wheezing, No shortness of breath, No dyspnea on exertion, No dyspnea at rest, No hemoptysis, No problem reported Cardiovascular: + palpitations, No chest pain, No orthopnea, No PND, No edema, No claudication, No problem reported Abdomen: No pain, No nausea, No vomiting, No diarrhea, No constipation, No GI bleeding, No problem reported Musculoskeletal: No joint pain, No muscle pain, No swelling, No calf pain, No problem reported Genitourinary - Female: No dysuria, No urinary frequency, No urinary urgency, No urinary incontinence, No urinary retention, No hematuria Neurologic: No memory loss, No paralysis, No weakness, No numbness/tingling, No vertigo, No balance problems, No problem reported Psychiatric: No depression symptoms, No anhedonism, No anxiety, No insomnia, No substance abuse, No problem reported Endocrine: No fatigue, No excessive thirst, No excessive urination, No problem reported Hematologic / Lymphatic: No abnormal bleeding/bruising, No clotting problems, No swollen lymph nodes, No night sweats, No problem reported Integumentary: No rash, No itch, No new/changing skin lesions, No color change , No bleeding, No problem reported Allergic / Immunologic: No environmental allergies, No seasonal allergies, No pet sensitivities, No food allergies, No hives, No frequent infections, No poor healing, No prolonged convalescence, No problem reported Physical Exam Vital Signs Date Time Temp Pulse Resp B/P (MAP) Pulse Ox O2 Delivery O2 Flow Rate FiO2 02/08/17 11:15 37.1 62 20 178/92 (120) 96 Room Air 184/73 (110) 02/08/17 08:31 169/82 (111) 02/08/17 08:00 177/114 02/08/17 07:54 76 18 184/102 95 Room Air 02/08/17 07:43 97 Room Air 02/08/17 07:19 70 18 185/98 97 Room Air 02/08/17 07:00 182/97 02/08/17 06:32 71 16 193/98 96 Room Air 02/08/17 06:22 73 16 205/103 96 Room Air 02/08/17 06:21 96 Room Air 02/08/17 06:21 96 Room Air 02/08/17 05:37 98 Room Air 02/08/17 05:33 83 02/08/17 05:16 36.8 88 20 222/103 97 Room Air General Appearance: WD/WN, no apparent distress Head: normocephalic, atraumatic Eyes: normal inspection, EOMI, sclerae normal ENT: normal ENT inspection, hearing grossly normal, pharynx normal Neck: supple, no adenopathy, no JVD, trachea midline Respiratory/Chest: chest non-tender, lungs clear, normal breath sounds, no respiratory distress, no accessory muscle use Cardiovascular: regular rate, rhythm, no edema, no gallop, no JVD, no murmur, normal peripheral pulses Abdomen/GI: normal bowel sounds, non tender, soft, no organomegaly Back: normal inspection, no CVA tenderness, no muscle spasm, normal range of motion Extremities/Musculoskelatal: normal inspection, no calf tenderness, normal capillary refill, no pedal edema, normal range of motion Neurologic/Psych: opinion polls survey worker II-XII nml as tested, no motor/sensory deficits, alert, normal mood/affect, normal reflexes, oriented x 3 Skin: normal color, warm/dry, no rash Lymphatic: no adenopathy Diagnostics Laboratory Results Results Past 24 Hours Test 02/08/17 05:30 02/08/17 11:13 Range/Units White Blood Count 8.97 4.8-10.8 K/uL Red Blood Count 4.61 4.2-5.4 M/uL Hemoglobin 14.0 12.0-16.0 g/dL Hematocrit 40.4 37-47 % Mean Corpuscular Volume 87.6 80-100 fL Mean Corpuscular Hemoglobin 30.4 25-34 pg Mean Corpuscular Hemoglobin Concent 34.7 32-36 g/dl RDW Standard Deviation 38.5 36.4-46.3 fL RDW Coefficient of Variation 12.0 11.5-14.5 % Platelet Count 297 130-400 K/uL Mean Platelet Volume 9.3 7.4-10.4 fL Prothrombin Time 10.1 9.0-12.0 SECONDS Prothromb Time International Ratio 0.9 0.9-1.1 Activated Partial Thromboplast Time 25.4 21.0-31.0 SECONDS Partial Thromboplastin Ratio 1.0 Sodium Level 138 136-145 mmol/L Potassium Level 3.3 3.5-5.1 mmol/L Chloride Level 100 98-107 mmol/L Carbon Dioxide Level 29 21-32 mmol/L Anion Gap 9.0 3-11 mmol/L Blood Urea Nitrogen 12 7-18 mg/dl Creatinine 0.82 0.60-1.20 mg/dl Est Creatinine Clear Calc Drug Dose 61.5 ml/min Estimated GFR () 83.4 Estimated GFR (Non- 72.0 BUN/Creatinine Ratio 15.0 10-20 Random Glucose 108 70-99 mg/dl Calcium Level 8.3 8.5-10.1 mg/dl Total Bilirubin 0.2 0.2-1 mg/dl Aspartate Amino Transf (AST/SGOT) 18 15-37 U/L Alanine Aminotransferase (ALT/SGPT) 20 12-78 U/L Alkaline Phosphatase 66 45-117 U/L Total Creatine Kinase 83 26-192 U/L Creatine Kinase MB 1.0 0.5-3.6 ng/ml Creatine Kinase MB Ratio 1.2 0-3.0 Troponin I 0.071 0.101 0-0.045 ng/ml Total Protein 8.1 6.4-8.2 gm/dl Albumin 4.0 3.4-5.0 gm/dl Globulin 4.1 2.5-4.0 gm/dl Albumin/Globulin Ratio 1.0 0.9-2 CXR normal EKG sinus rhythm with lateral lead TW inversions Impression Assessment and Plan 72 yo female with palpitations and accelerated hypertension despite taking oral medications - Palpitations: unclear etiology, resolved currently, keep on telemetry - Elevated troponin: rising slowly, up to 0.1, never had chest pain or pressure , some new TW inversions in lateral leads follow troponin consult 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 Estes, hopefully we can get better control and have her follow up outpatient - GERD: PPI heparin SC for DVT prophylaxis Level of Care Telemetry Advanced Directives Existing Living Will: Yes Existing Power of Load Blocker: Yes Resuscitation Status FULL RESUSCITATION VTE Prophylaxis VTE Risk Assessment Done? Y/N: Yes Risk Level: Low Given or contraindicated: Unfractionated heparin SQ Additional Copies To David Bishop M.D.
[2017-02-08 15:05] VITALS: BP 201/94; PULSE 66; TEMP 37.3; O2SAT 94
--- NOTE | 2017-02-08 16:09 | CARDIOLOGY CONSULTATION ---
DATE OF CONSULTATION: 02/08/2017 DATE OF CONSULTATION: 02/08/2017. PERTINENT HISTORY: Mrs. Colón is a 72-year-old white female admitted earlier today because of hypertensive urgency. This consultation was ordered to assist in her management. Of note, the patient typically follows with Dr. Mansfield in the outpatient setting. The patient was in her usual state of health until approximately midnight when she awoke from sound sleep with her "heart beating in her neck". The patient felt that maybe she had had too much caffeine throughout the day. She was able to fall back asleep, but then awoke several hours later again noting "palpitations" in her chest and neck. She checked her blood pressure and noted to be 220/110, therefore, presented to the Emergency Room for further care. On arrival here, the patient's initial blood pressure is 222/103. She was complaining of palpitations. She received several doses of intravenous labetalol and hydralazine and her blood pressure improved. With this, her symptoms of "palpitation" resolved. The patient does not exercise routinely. However, is able to carry on activities of daily life and does not experience exertional chest pain or limiting dyspnea. She further denies syncope, presyncope, PND, orthopnea, lower extremity edema, and claudication. The patient does carry a history for rheumatic heart disease. She is followed with routine echos and office visits with Dr. Mansfield. Currently, the patient is resting comfortably in bed without complaints. PAST MEDICAL HISTORY: 1. Hypertension. 2. Hypercholesterolemia. 3. Mild to moderate aortic insufficiency. 4. Mild to moderate mitral regurgitation. 5. History of rheumatic fever. 6. CVA - December 2011. 7. Hypothyroidism. 8. Hyperglycemia. 9. GERD. 10. Seizure disorder. 11. Vitamin D deficiency. 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 13. Right renal exophytic lesion -- Dr. Estes. MEDICATIONS: 1. Metoprolol tartrate 100 mg b.i.d. 2. Amlodipine 10 mg daily. 3. Micardis 80 mg per day. 4. Hydralazine 25 mg t.i.d. - new medication. 5. Lasix 20 mg b.i.d. 6. Zocor 20 mg at bedtime. 7. Synthroid 0.112 mg daily. 8. Aspirin 325 mg per day. 9. Cymbalta 20 mg daily. ALLERGIES: None. SOCIAL HISTORY: The patient is , lives with her . Quit tobacco use 25 years ago. Does not use alcohol. FAMILY HISTORY: Mother at age of 89 from "old age." Father at age of 74 from an AR. He did have bypass surgery performed when in his 60s. Brother had a stent placed when in his 40s. REVIEW OF SYSTEMS: A 10-point review of systems was negative except for that described above. PHYSICAL EXAMINATION: GENERAL: This is a well-developed, well-nourished white female in no acute distress. VITAL SIGNS: Blood pressure is 148/88 with a regular pulse of 60. Respiratory rate is 20 and the patient is afebrile at 37.1 degrees Celsius. Saturation is 96% on room air. HEAD, EYES, EARS, NOSE, AND THROAT EXAMINATION: Negative. NECK: Supple with full carotid upstrokes. There are no obvious bruits. Jugular venous pressure is flat at 90 degrees. There is no thyromegaly. CARDIOVASCULAR EXAMINATION: Reveals a regular rhythm with a normal S1 and S2. A 1/6 basal systolic ejection murmur is noted. No diastolic murmurs. LUNGS: Clear without rales, rhonchi, or wheezes. ABDOMEN: Soft, nontender without bruits. EXTREMITIES: Reveal intact radial artery and posterior tibial pulses bilaterally. There is no peripheral edema. DATA: CBC notes hemoglobin 14.0, hematocrit 40.4, white count 8.9, platelet count 297,000. Electrolytes note a sodium of 138, potassium 3.3, chloride 100, bicarbonate 29, BUN 12, creatinine 0.8, glucose 108. Initial troponin was mildly elevated at 0.171 with follow-up value of 0.101. CK is 83 with an MB fraction of 1.0. EKG notes normal sinus rhythm and a nonspecific ST and T-wave abnormality (baseline artifact). Chest x-ray shows no acute disease. Renal ultrasound performed in July showed no evidence of renal artery stenosis. However, there was a 9 mm exophytic lesion on the right kidney. IMPRESSION: Mrs. Colón was admitted with accelerated hypertension. Her blood pressure is now better controlled with the addition of hydralazine. She did receive several intravenous doses of labetalol and hydralazine. Would observe her on this new medical regimen and make further recommendations tomorrow. It would be reasonable to recheck an echocardiogram to reassess her rheumatic valve disease. PLAN: 1. Agree with addition of hydralazine. 2. Agree with monitoring overnight on telemetry. 3. Replete potassium. 4. Check echocardiogram. 5. Further recommendations depending on her clinical course.
[2017-02-08] MEDS ORDERED: NURSING VERBAL MED ORDER ONE (18:00)
[2017-02-08] MEDS ORDERED: NITROGLYCERIN 2% OINTMENT 30GM TUBE ONE (18:06)
[2017-02-08] MEDS ORDERED: NITROGLYCERIN OINT 2% 1GM PACKET EXT ONE (18:15)
[2017-02-08] MEDS ORDERED: METOPROLOL TARTRATE 100 MG TAB PO ONE (18:15)
[2017-02-08 19:27] VITALS: BP 172/89; PULSE 65; TEMP 37.2; O2SAT 96
[2017-02-08 20:30] VITALS: O2SAT 96
[2017-02-08] MEDS ORDERED: SIMVASTATIN 20 MG TAB PO SCH (21:00)
[2017-02-08] MEDS: NITROGLYCERIN OINT 2% 1GM PACKET EXT SCH (23:52)
[2017-02-09] VITALS (7 sets, daily range): BP systolic 117–161; BP diastolic 68–88; PULSE 60–67; TEMP 36.7–37.2; O2SAT 94–97
[2017-02-09] MEDS: ALPRAZOLAM 0.5 MG TAB PO PRN (00:39)
[2017-02-09] MEDS ORDERED: LEVOTHYROXINE 112 MCG TAB PO SCH (06:00)
[2017-02-09 06:04] LABS: BASO % 0.1 %; BASO ABS # 0.01 K/uL (0-0.2); COMPLETE YES; EOS % 1.5 %; HEMATOCRIT 38.7 % (37-47); IG% 0.1 %; LYMPH % 39.5 %; LYMPH ABS # 2.96 K/uL (1.2-3.4); MEAN CELL VOLUME 88.8 fL (80-100); MEAN CORPUSCULAR HEMOGLOBIN 29.1 pg (25-34); MEAN CORPUSCULAR HGB CONC 32.8 g/dl (32-36); MEAN PLATELET VOLUME 9.2 fL (7.4-10.4); MONO % 8.3 %; NEUT % 50.5 %; PLATELET COUNT 274 K/uL (130-400); RED BLOOD COUNT 4.36 M/uL (4.2-5.4)
[2017-02-09] MEDS: NITROGLYCERIN OINT 2% 1GM PACKET EXT SCH (06:24)
[2017-02-09 06:33] LABS: CALCIUM 8.1 mg/dl (8.5-10.1); CREATININE 0.75 mg/dl (0.60-1.20); MAGNESIUM 2.3 mg/dl (1.8-2.4); POTASSIUM 3.4 mmol/L (3.5-5.1)
[2017-02-09 06:43] LABS: PHOSPHORUS 3.4 mg/dl (2.5-4.9)
[2017-02-09] MEDS: METOPROLOL TARTRATE 100 MG TAB PO SCH (07:27)
[2017-02-09] MEDS: FUROSEMIDE 20 MG TAB PO SCH (07:29)
[2017-02-09] MEDS: ASPIRIN 325 MG ECTAB PO SCH (07:30)
[2017-02-09] MEDS: DULOXETINE HCL 20 MG CAP PO SCH (07:30)
[2017-02-09] MEDS: AMLODIPINE BESYLATE 5 MG TAB PO SCH (07:30)
[2017-02-09] MEDS ORDERED: NURSING VERBAL MED ORDER ONE (07:30)
[2017-02-09] MEDS: TELMISARTAN 40 MG TAB PO SCH (07:31)
[2017-02-09] MEDS ORDERED: ISOSORBIDE MONONITRATE 30 MG TABCR PO SCH (09:00)
[2017-02-09] MEDS ORDERED: METOPROLOL TARTRATE 50 MG TAB PO SCH (09:00)
--- NOTE | 2017-02-09 09:30 | CARDIOLOGY PROGRESS NOTE ---
DATE: 02/09/2017 SUBJECTIVE: Mrs. Colón is resting comfortably in bed without complaints of chest pain or dyspnea. She is anxious for hospital discharge. OBJECTIVE: VITAL SIGNS: Blood pressure is 117-160/75-88. Pulse is 61. Respiratory rate is 16. The patient is afebrile at 37.0 degrees Celsius. Saturation is 96% on room air. NECK: Supple with full carotid upstrokes. There are no carotid bruits. Jugular venous pressure is flat at 90 degrees. There is no thyromegaly. CARDIOVASCULAR: Reveals a regular rhythm with normal S1 and S2. A 1/6 basal systolic ejection murmur is noted. No S3 or S4. LUNGS: Clear without rales, rhonchi, or wheezes. ABDOMEN: Soft and nontender without bruits. EXTREMITIES: Reveal intact radial artery pulses bilaterally. There is no peripheral edema. LABORATORY DATA: CBC notes hemoglobin 12.7, hematocrit 38.7, white count 7.5, and platelet count 274,000. Electrolytes note a sodium of 137, potassium 3.4, chloride 101, bicarb 30, BUN 11, creatinine 0.75, and glucose 96. Troponin I level is down to 0.09. online communications manager is benign. IMPRESSION AND PLAN: 1. Accelerated hypertension -- blood pressure is now better controlled with the addition of hydralazine. Would continue to monitor. 2. Known aortic insufficiency -- check echocardiogram today. 3. Known mitral regurgitation. 4. Hypercholesterolemia. 5. History of rheumatic fever. 6. Cerebrovascular accident -- December 2011.
[2017-02-09] MEDS ORDERED: POTASSIUM CHLORIDE 10 MEQ TABCR PO ONE (10:30)
--- NOTE | 2017-02-09 11:15 | ECHOCARDIOGRAM REPORT ---
*NOTICE TO RECEIVING CONSTITUTION PARTY AGENCY This information is strictly Confidential and protected under [place] law. [place] law prohibits you from making any further disclosure of this information unless further disclosure is expressly permitted by the written consent of the person to whom it pertains or is authorized by law. A general authorization for the release of medical or other information is not sufficient for this purpose. Hospital accepts no responsibility if the information is made available to any other person, INCLUDING THE PATIENT. Interpretation Summary * Name: HAMMAD COSTELLO Study Date: 02/09/2017 09:57 AM BP: 161/88 mmHg * Patient Location: C.2E\S\E204\S\1 HR: 61 * : 1945 (M/d/yyyy) Gender: Female Height: 63 in * Age: 72 yrs Ethnicity: CA Weight: 168 lb * Ordering Physician: Henry Kelley MD, [facility] * Performed By: Kayli Santiago * * Reason For Study: MALIGNANT HTN, KNOWN AI * BSA: 1.8 m2 * -- Conclusions -- * Left ventricular systolic function is normal. * No regional wall motion abnormalities noted. * Ejection Fraction = 65-70%. * There is borderline concentric left ventricular hypertrophy. * Grade I diastolic dysfunction, (abnormal relaxation pattern). * Mild to moderate valvular aortic stenosis. * Mild to moderate aortic regurgitation. * Mild mitral regurgitation. Procedure Details * A complete two-dimensional transthoracic echocardiogram was performed (2D, M-mode, Doppler and color flow Doppler). Left Ventricle * The left ventricle is normal in size. * There is borderline concentric left ventricular hypertrophy. * Ejection Fraction = 65-70%. * Left ventricular systolic function is normal. * No regional wall motion abnormalities noted. Right Ventricle * The right ventricle is grossly normal size. * The right ventricular systolic function is normal as assessed by tricuspid annular plane systolic excursion (TAPSE) (normal >1.5 cm). Atria * The left atrial size is normal. * Right atrial size is normal. * There is no evidence of atrial septal defect, but resolution does not allow assessment for a patent foramen ovale. Mitral Valve * The mitral valve leaflets appear thickened, but open well. * There is no mitral valve stenosis. * There is mild mitral regurgitation. Tricuspid Valve * The tricuspid valve is not well visualized, but is grossly normal. * There is no tricuspid stenosis. * There is trace tricuspid regurgitation. Aortic Valve * The aortic valve is trileaflet. * Mild to moderate valvular aortic stenosis. * Mild to moderate aortic regurgitation. Pulmonic Valve * The pulmonary valve is not well seen, but the Doppler examination is normal without significant regurgitation or stenosis. Great Vessels * The aortic root and proximal ascending aorta are normal sized. * The pulmonary is not well visualized. Pericardium/Pleural * There is no pericardial effusion. Great Vessels * Normal inferior vena cava size and collapsability with sniff indicates a normal right atrial pressure of 3 mmHg Left Ventricular Diastolic Function * Grade I diastolic dysfunction, (abnormal relaxation pattern). * E to e'= <10 abnormal relaxation MMode 2D Measurements and Calculations IVSd 1.7 cm IVSs 1.9 cm LVIDd 4.3 cm LVIDs 2.7 cm LVPWd 1.1 cm LVPWs 2.2 cm IVS/LVPW 1.5 FS 36.8 % EDV(Teich) 83.2 ml ESV(Teich) 27.6 ml EF(Teich) 66.9 % EDV(cubed) 79.7 ml ESV(cubed) 20.2 ml EF(cubed) 74.7 % % IVS thick 14.8 % % LVPW thick 93.8 % LV mass(C)d 230.5 grams LV mass(C)dI 128.4 grams/m\S\2 LV mass(C)s 246.9 grams LV mass(C)sI 137.5 grams/m\S\2 SV(Teich) 55.7 ml SI(Teich) 31.0 ml/m\S\2 SV(cubed) 59.5 ml SI(cubed) 33.2 ml/m\S\2 ACS 1.1 cm LA dimension 5.0 cm asc Aorta Diam 3.1 cm LVOT diam 1.8 cm LVOT area 2.4 cm\S\2 LVAd ap4 37.8 cm\S\2 LVLd ap4 8.1 cm EDV(MOD-sp4) 141.5 ml EDV(sp4-el) 149.5 ml LVAs ap4 19.9 cm\S\2 LVLs ap4 6.6 cm ESV(MOD-sp4) 50.7 ml ESV(sp4-el) 50.8 ml EF(MOD-sp4) 64.1 % EF(sp4-el) 66.0 % LVAd ap2 29.6 cm\S\2 LVLd ap2 8.0 cm EDV(MOD-sp2) 90.1 ml EDV(sp2-el) 92.9 ml LVAs ap2 15.1 cm\S\2 LVLs ap2 6.2 cm ESV(MOD-sp2) 31.3 ml ESV(sp2-el) 31.3 ml EF(MOD-sp2) 65.2 % EF(sp2-el) 66.3 % LVLd %diff -1.93 % EDV(MOD-bp) 115.6 ml LVLs %diff -6.61 % ESV(MOD-bp) 40.9 ml EF(MOD-bp) 64.6 % SV(MOD-sp4) 90.7 ml SI(MOD-sp4) 50.5 ml/m\S\2 SV(MOD-sp2) 58.8 ml SI(MOD-sp2) 32.7 ml/m\S\2 SV(MOD-bp) 74.6 ml SI(MOD-bp) 41.6 ml/m\S\2 SV(sp4-el) 98.7 ml SI(sp4-el) 55.0 ml/m\S\2 SV(sp2-el) 61.6 ml SI(sp2-el) 34.3 ml/m\S\2 Doppler Measurements and Calculations MV E max jarrod 71.7 cm/sec MV A max jarrod 113.2 cm/sec MV E/A 0.63 MV dec time 0.30 sec Ao V2 max 223.1 cm/sec Ao max PG 19.9 mmHg Ao max PG (full) 15.1 mmHg Ao V2 mean 143.9 cm/sec Ao mean PG 9.8 mmHg Ao V2 VTI 59.3 cm OBEY(V,A) 1.2 cm\S\2 OBEY(V,D) 1.2 cm\S\2 AI max jarrod 380.2 cm/sec AI max PG 57.8 mmHg AI dec slope 160.6 cm/sec\S\2 AI P1/2t 693.4 msec LV V1 max PG 4.8 mmHg LV V1 max 109.5 cm/sec PA V2 max 57.0 cm/sec PA max PG 1.3 mmHg PI end-d jarrod 94.0 cm/sec TR max jarrod 250.1 cm/sec
[2017-02-09] MEDS ORDERED: APR25 PO (12:28)
[2017-02-09] MEDS ORDERED: IMDSR30 PO (12:28)
[2017-02-09] MEDS ORDERED: METO100T14 PO (12:28)
--- NOTE | 2017-02-09 12:34 | Discharge Instructions ---
Discharge Instructions Date of Service Feb 09, 2017. Admission Reason for Admission: Hypertension, Palpitations Discharge Discharge Diagnosis / Problem: Malignant hypertention, palpitations Discharge Goals Goal(s): Improve function, Improve disease control Activity Recommendations Activity Limitations: resume your previous activity Lifting Limitations: none Exercise/Sports Limitations: as tolerated May Resume Sexual Activity: when tolerated Shower/Bathe: no limitations Driving or Machine Use: no limitations . Instructions / Follow-Up Instructions / Follow-Up Medications: note the following changes or additions, scripts sent to your pharmacy - METOPROLOL: dose increased from 100mg to 150mg twice a day - IMDUR: 30mg daily, new medications, vasodilator to help blood pressure control - HYDRALAZINE: 25mg three times a day, blood pressure control Hypertension: controlled overnight and today with the additional medications of Hydralazine and Imdur and increasing metoprolol. Please follow a low sodium diet (less than 2gm daily) recommend following up with Dr. Estes since he had been seeing you for this as outpatient Palpitations: no arrhythmia on the monitor, likely was related to your high blood pressures Elevated troponin: due to high blood pressure Mitral regurgitation and rheumatic disease: echocardiogram is similar to prior echocardiogram, discussed with Dr. Kelley FOLLOW UP - call for appointment with Dr. Bishop in one week for hospital follow up - call for appointment with Dr. Estes in next 2-3 weeks, request a hospital follow up visit, recommended by Hospitalist - keep previous appointment with Dr. Mansfield Current Hospital Diet Patient's current hospital diet: AHA Diet (Heart Healthy) Discharge Diet Recommended Diet: Low Sodium Diet (2gm Na) Procedures Procedures Performed: Echocardiogram: same as previous reports Pending Studies Studies pending at discharge: no Laboratory Results Hemoglobin A1c Test 11/15/16 10:27 Range/Units Estimated Average Glucose 117 mg/dl Hemoglobin A1c 5.7 H 4.5-5.6 % Lipid Panel Test 11/15/16 10:27 Range/Units Triglycerides Level 134 0-150 mg/dl Cholesterol Level 174 0-200 mg/dl HDL Cholesterol 73 mg/dl Cholesterol/HDL Ratio 2.4 LDL Cholesterol, Calculated 74 mg/dl Medical Emergencies . Who to Call and When: Medical Emergencies: If at any time you feel your situation is an emergency, please call 911 immediately. . Non-Emergent Contact Non-Emergency issues call your: Primary Care Provider, Guest Service Supervisor Call Non-Emergent contact if: you have any medication questions . . "Provider Documentation" section prepared by Mono Srivastava. . VTE Core Measure Inpt VTE Proph given/why not?: Unfractionated heparin SQ [place] Drug Monitoring Program Search Results: no issues identified
--- NOTE | 2017-02-11 08:23 | Discharge Summary ---
Discharge Summary Date of Service Feb 09, 2017. Discharge Summary Admission Date: Feb 08, 2017 at 07:23 Discharge Date: Feb 09, 2017 Discharge Disposition: Home Principal Diagnosis: Malignant hypertension Problems/Secondary Diagnoses: Palpitations Immunizations: Have You Had Influenza Vaccine: No History of Tetanus Vaccine?: Yes Tetanus Immunization Date: Apr 10, 2008 History of Pneumococcal: Yes Pneumococcal Date: May 10, 2010 History of Hepatitis B Vaccine: No Procedures: Echocardiogram: mitral regurgitation, moderate , normal EF, no significant change compared to prior echocardiograms Consultations: Cardiology Medication Reconciliation New Medications: Hydralazine Hcl (Apresoline) 25 Mg Tab 25 MG PO TID, #30 TAB 3 Refills Isosorbide Mononitrate (Isosorbide Mononitrate ER) 30 Mg Tabcr 30 MG PO QAM, #30 TABS 3 Refills Metoprolol Tartrate (Lopressor) (Lopressor) 100 Mg Tab 1.5 TAB PO BID for 30 Days, #90 TAB 3 Refills Continued Medications: Alendronate Sodium (Fosamax) 70 Mg Tab 70 MG PO WK, TAB Alprazolam (Xanax) 0.5 Mg Tab 0.5 MG PO Q6H PRN for Anxiety, TAB Amlodipine (Norvasc) 10 Mg Tab 10 MG PO QAM, TAB Aspirin (Aspirin Ec) 325 Mg Tab 325 MG PO QAM Calcium/Vitamin D (Os-David 500 Plus D) Tab 1 TAB PO QAM, TAB Carbamazepine Extended Release (Tegretol Xr) 400 Mg Tabcr 400 MG PO BID, TAB Cholecalciferol (Vitamin D) 2,000 Unit Tab 2000 UNIT PO BID Duloxetine HCl (Cymbalta) 20 Mg Cap 20 MG PO QAM Furosemide (Lasix) 20 Mg Tab 20 MG PO BID, TAB Levothyroxine Sodium (Levothyroxine Sodium) 112 Mcg Tab 112 MCG PO QAM, 3 Refills Multivitamin (Multivitamin) Tab 1 TAB PO QAM, TAB Omeprazole (Prilosec) 20 Mg Capcr 20 MG PO DAILY PRN for Indigestion, CAP Simvastatin (Zocor) 20 Mg Tab 20 MG PO QPM, TAB Telmisartan (Micardis) 80 Mg Tab 80 MG PO QAM, TAB Discontinued Medications: Metoprolol Tartrate (Lopressor) (Lopressor) 100 Mg Tab 100 MG PO BID, TAB Discharge Exam Patient feeling better on day of discharge, no palpitations for over 24 hours. Blood pressure better controlled, systolic pressures in the 140's and diastolic 60-70's. Ambulating multiple laps around the nurses station, no palpitations or chest pain. patient was feeling up to go home. Review of Systems: Constitutional: No fever, No chills, No sweats, No weight loss, No weakness , No fatigue, No problem reported Eyes: No worsening of vision, No eye pain, No redness, No discharge, No diplopia, No problem reported ENT: No hearing loss, No unusual epistaxis, No nasal symptoms, No sore throat, No tinnitus, No dental problems, No trouble swallowing, No problem reported Respiratory: No cough, No sputum, No wheezing, No shortness of breath, No dyspnea on exertion, No dyspnea at rest, No hemoptysis, No problem reported Cardiovascular: No chest pain, No orthopnea, No PND, No edema, No claudication, No palpitations, No problem reported Abdomen: No pain, No nausea, No vomiting, No diarrhea, No constipation, No GI bleeding, No problem reported Musculoskeletal: No joint pain, No muscle pain, No swelling, No calf pain, No problem reported Genitourinary - Female: No dysuria, No urinary frequency, No urinary urgency , No urinary incontinence, No urinary retention, No hematuria Neurologic: No memory loss, No paralysis, No weakness, No numbness/tingling , No vertigo, No balance problems, No problem reported Psychiatric: No depression symptoms, No anhedonism, No anxiety, No insomnia , No substance abuse, No problem reported Endocrine: No fatigue, No excessive thirst, No excessive urination, No problem reported Hematologic / Lymphatic: No abnormal bleeding/bruising, No clotting problems , No swollen lymph nodes, No night sweats, No problem reported Integumentary: No rash, No itch, No new/changing skin lesions, No color change, No bleeding, No problem reported Physical Exam: General Appearance: WD/WN, no apparent distress Eyes: normal inspection, EOMI, sclerae normal ENT: normal ENT inspection, hearing grossly normal, pharynx normal Neck: supple, no adenopathy, no JVD, trachea midline Respiratory/Chest: chest non-tender, lungs clear, normal breath sounds, no respiratory distress, no accessory muscle use Cardiovascular: regular rate, rhythm, no edema, no gallop, no JVD, no murmur , normal peripheral pulses Abdomen / GI: normal bowel sounds, non tender, soft, no organomegaly Extremities: normal inspection, no calf tenderness, normal capillary refill , no pedal edema, normal range of motion, pelvis stable Neurologic/Psychiatric: 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 Kelley, echo showed MR and moderate , similar to prior echocardiogram felt that elevated troponin was due to hypertension - Accelerated hypertension: currently resistant to her normal home medications of Norvasc, Micardis, Lopressor and Lasix increased metoprolol to 150mg BID, added Hydralazine 25mg TID and in the evening when pressures were still high, added nitro paste q6 better BP control overnight, changed nitro paste to Imdur 30mg daily BP better controlled in the AM and after lunch, systolic pressures in the 140 's and diastolic 60's will d/c home on Norvasc 10mg, Micardis 80mg, Lopressor 150mg BID, Lasix 20mg BID, Hydralazine 25mg TID and Imdur 30mg daily close follow up with Dr. Bishop in one week recommend follow up with Dr. Estes in 2-3 weeks as well to weigh in on hypertension that is difficult to control low sodium diet - GERD: PPI heparin SC for DVT prophylaxis Total Time Spent: Greater than 30 minutes This includes examination of the patient, discharge planning, medication reconciliation, and communication with other providers. Discharge Instructions Please refer to the electronic Patient Visit Report (Discharge Instructions) for additional information. Follow-Up Dr. Bishop one week Dr. Estes in 2-3 weeks Additional Copies To Harry Mansfield M.D.; Darío Estes M.D.; David Bishop M.D.
== END 2017-02-09 14:51 | disposition home or self-care (01) ==
LOC: C.EDB 05:16 → C.2E 07:23 → ENRESERV 07:38
PROVIDERS: ADMIT Internal Medicine; ATTEND Internal Medicine
DX: I10 Essential (primary) hypertension (principal); R00.2 Palpitations; R79.89 Other specified abnormal findings of blood chemistry; I08.0 Rheumatic disorders of both mitral and aortic valves; K21.9 Gastro-esophageal reflux disease without esophagitis; E78.00 Pure hypercholesterolemia, unspecified; E03.9 Hypothyroidism, unspecified; G40.909 Epilepsy, unspecified, not intractable, without status epilepticus; Z79.82 Long term (current) use of aspirin; Z86.73 Personal history of transient ischemic attack (TIA), and cerebral infarction without residual deficits; Z87.891 Personal history of nicotine dependence; Z90.710 Acquired absence of both cervix and uterus; Z82.49 Family history of ischemic heart disease and other diseases of the circulatory system

== ENCOUNTER → 2017-02-16 | Outpatient (CLI) | payer MEDICARE ==
[~2017-02-16] MED LIST changes: +APR25 PO; +IMDSR30 PO
[2017-02-16 17:38] LABS: URINE APPEARANCE CLEAR (CLEAR); URINE BILIRUBIN NEG (NEG); URINE COLOR YELLOW; URINE NITRITE NEG (NEG); URINE SPECIFIC GRAVITY 1.017 (1.000-1.030); UROBILINOGEN NEG (NEG)
[2017-02-16 17:46] LABS: BLOOD UREA NITROGEN 11 mg/dl (7-18); BUN/CREATININE RATIO 12.5 (10-20); CALCIUM 8.5 mg/dl (8.5-10.1); CARBON DIOXIDE 29 mmol/L (21-32); CHLORIDE 98 mmol/L (98-107); CREATININE 0.91 mg/dl (0.60-1.20); GLUCOSE 107 mg/dl (70-99); PHOSPHORUS 3.7 mg/dl (2.5-4.9); POTASSIUM 3.6 mmol/L (3.5-5.1); SODIUM 134 mmol/L (136-145)
[2017-02-16 17:53] LABS: URINE PROTIEN/CREAT RATIO 0.1 (0-0.2); URINE TOTAL PROTEIN 9.2 mg/dl (0-11.9)
[2017-02-16 17:56] LABS: MANUAL MICROSCOPIC REQUIRED? NO; REVIEW REQ? NO
[2017-02-16 18:01] LABS: HEMATOCRIT 38.2 % (37-47); MEAN CELL VOLUME 88.4 fL (80-100); MEAN CORPUSCULAR HGB CONC 35.1 g/dl (32-36); PLATELET COUNT 337 K/uL (130-400); RED BLOOD COUNT 4.32 M/uL (4.2-5.4); WHITE BLOOD COUNT 5.48 K/uL (4.8-10.8)
--- NOTE | 2017-02-23 13:30 | CODING QUERY MEDICAL NECESSITY ---
SUPPORTING DIAGNOSIS NEEDED A supporting diagnosis is required for the test/procedure performed on this patient in order for us to be reimbursed by the patient's insurance. Please provide a supporting diagnosis for the following test/procedure listed below next to the test name along with your signature. *If there is no additional diagnosis for this patient that would support the following test/procedure please document that below next to the test/procedure. Test(s)/Procedure(s) that require a supporting diagnosis: * VITAMIN D, 25-HYDROXY DIAGNOSIS: Provider Signature: Date: Thank you Ninfa Winter [employer]MD Information Management Once completed, please kindly fax back to [phone] For questions please call [phone]
== END | disposition home or self-care (01) ==
LOC: C.LABBFT 11:50
PROVIDERS: ATTEND Internal Medicine Nephrology
DX: I10 Essential (primary) hypertension (principal); E87.1 Hypo-osmolality and hyponatremia; E55.9 Vitamin D deficiency, unspecified

== ENCOUNTER → 2017-02-21 | Outpatient (CLI) | payer MEDICARE ==
--- NOTE | 2017-02-21 10:43 | DIAGNOSTIC IMAGING REPORT ---
EXAMINATION: RENAL ULTRASOUND CLINICAL HISTORY: N28.9 Kidney lesion, right renal mass follow-up. Follow-up study COMPARISON STUDY: 07/22/2016 FINDINGS: The right kidney measures 10.3 cm. The left kidney measures 10.4 cm. There is no evidence of hydronephrosis. There is an 11 mm mid pole right renal cyst. No solid renal masses are visualized. No bladder abnormalities are visualized. Bilateral ureteral jets were visualized. IMPRESSION : 11 mm mid pole right renal cyst. Electronically signed by: Tanmay Roland M.D. 02/21/2017 10:41 AM Dictated Date/Time: 02/21/2017 10:40 AM
== END | disposition home or self-care (01) ==
LOC: C.ULTR 09:49
PROVIDERS: ATTEND Internal Medicine Nephrology
DX: N28.1 Cyst of kidney, acquired (principal)

== ENCOUNTER → 2017-02-23 | Outpatient (CLI) | payer MEDICARE ==
[2017-02-27 16:32] LABS: VANILMANDELIC ACID (VMA) 2.8 mg/24 h (<=6.0)
== END | disposition home or self-care (01) ==
LOC: C.LABSPEC 12:40
PROVIDERS: ATTEND Internal Medicine
DX: I10 Essential (primary) hypertension (principal)

== ENCOUNTER → 2017-04-19 | Outpatient (CLI) | payer MEDICARE ==
[~2017-04-19] VITALS: Ht 160 cm; Wt 75.2 kg
[2017-04-19 16:30] VITALS: BP 169/87; PULSE 56; Ht 160 cm; Wt 75.2 kg
== END | disposition home or self-care (01) ==
LOC: C.NEUR 14:49
PROVIDERS: ATTEND Physician Assistant Medical
DX: R06.83 Snoring (principal); I10 Essential (primary) hypertension; I65.29 Occlusion and stenosis of unspecified carotid artery; I35.1 Nonrheumatic aortic (valve) insufficiency; F32.9 Major depressive disorder, single episode, unspecified; Z86.73 Personal history of transient ischemic attack (TIA), and cerebral infarction without residual deficits; E03.9 Hypothyroidism, unspecified; M81.0 Age-related osteoporosis without current pathological fracture; R73.03 Prediabetes; G40.909 Epilepsy, unspecified, not intractable, without status epilepticus; E55.9 Vitamin D deficiency, unspecified; Z87.891 Personal history of nicotine dependence

== ENCOUNTER → 2017-05-16 | Outpatient (CLI) | payer MEDICARE ==
[~2017-05-16] MED LIST changes: -CARB1TAB38 PO; +CARB400T3 PO
--- NOTE | 2017-05-17 05:52 | PAP/PSG TECHNICIAN REPORT ---
[facility] Milling Machine Tender Polysomnogram Report Study name: None Report date: 05/17/2017 Study date: 05/16/2017 Referring Physician: Hannah Cadet PA-C Name: HAMMAD COLÓN Interpreting Physician: Shaun Simon M.D. Date of : 1945 Milling Machine Tender: Yovany Shoemaker RPSGT. Sex: Female Age: 72 StudyType: PSG Weight: 165 lbs 13 INCHES Height: 72 years, Height 5' 3" Neck Circum: BMI: 29.23 Medications: ALENDRONATE SODIUM 70 MG, ALPRAZOLAM 0.5 MG, ASPIRIN EC 325 MG, CARBAMAZEPINE ER 400 MG, DULOXETINE HCL 20 MG, FUROSEMIDE 20 MG, HYDRALAZINE HCL 25 MG, LEVOTHYROXINE SODIUM 112 MCG, METOPROLOL TARTRATE 100 MG, OMEPRAZOLE 20 MG, SIMVASTATIN 20 MG, TELMISARTAN 20 MG, Patient History PATIENT HAS HISTORY DEPRESSION, HYPERTENSION, GERD AND CVA. SHE ALSO HISTORY OF FATIIGUE AND DIFFICULTY FALLING ASLEEP. SHE IS HERE TODAY FOR AN EVALUATION FOR GALINA. ESS = 1 RM 5 Parameters Monitored NPSG: E1-M2, E2-M1, Fp1-M2, Fp2-M1, F3-M2, F4-M2, F4-M1, C3-M2, C4-M2, C4-M1, O1-M2, O2-M2, O2-M1, T3-M2, T4-M1, P3-M2, P4-M1, CHIN1, CHIN2, HR, EKG, Legs, PFLOW, SNOR, FLOW, CFLOW, Tidal Volume, THOR, ABDO, SpO2, PLTH, CPRESS, ETCO2 Wave, ETCO2, pH Sleep Architecture Sleep Stages Time at Lights Off 10:04:41 PM STAGES Time (min.) TST (%) Time at Lights On 5:27:11 AM Wake 95.0 -- Total Recording Time (TRT) 443.00 min. N1 28.5 8 Total Sleep Period (TSP) 426.0 min. N2 203.5 59 Total Sleep Time (TST) 347.5min. N3 73.5 21 Awake Time 95.0 min. REM 42.0 12 Wake after Sleep Onset 78.5 min. Sleep Efficiency (SE) 79 % Sleep Onset Latency (RUTH ANN) 16.5 min. Number of Stage 1 Shifts None Awakenings 34 Stage Changes 126 Number of REM periods 2 REM 42.0 12 REM Latency 110.5 min. NREM 305.5 88 Body Position Analysis Supine Right Left Side Prone Vertical Total Sleep Time (min.) 46.8 284.6 28.4 312.99 0.0 0.0 Total Sleep Time (%) 10% 82% 8% 90 0% N/A% Total Sleep Time REM (min.) 0.0 42.0 0.0 None 0.0 0.0 Total Sleep Time NREM (min.) 34.5 242.6 28.4 None 0.0 0.0 Intermittent Wake (min.) 12.3 81.2 1.5 None 0.0 0.0 Total Sleep Period (%) 10% None None None None None Arousals Myoclonus (PLM) * Events Count Index Events Count Index Spontaneous 77 13 Events Awake (PLMW) 148 93.5 Respiratory 12 2.1 Events Asleep w/ Arousal (PLMA) 32 5.5 PLM 31 6 Events Asleep w/o Arousal (PLMS) 179 30.9 Snoring 37 6 Total Asleep 211 36.4 Total 156 27 Total 359 49 Respiratory Analysis * CA OA MA CH H RERA Total Count 2 6 1 0 41 3 50 Index 0.3 1.0 0.2 0 7.1 1 9.2 Mean Duration 14.3 22.9 12.9 0.00 15.8 15.8 16.5 Longest Duration 18.6 32.4 12.9 0.00 12.9 17.4 32.4 Respiratory Event Summary Total Supine ~Supine Right Left Prone REM NREM Apneas Count 9 6 3 2 1 N/A 1 8 Index 1.6 10 1 0.4 2.1 N/A 1 2 Hypopneas (4% Desat) Count 41 18 23 19 4 N/A 7 34 Index 7.1 31.3 4 4.0 8.4 N/A 10.0 6.7 Apneas & All Hypopneas Count 50 24 26 21 5 N/A 8 42 Index 8.6 42 5 4 11 N/A 11.4 8.2 Respiratory Events (Employee Relations Advisor+All Hyp+RERA) Count 50 24 29 24 5 N/A 8 42 Index 9.2 42 6 5.1 10.6 N/A 11.4 8.8 Respiratory Related Arousal Count 12 24 4 4 0 N/A 0 12 Index 2.1 14 1 1 0 N/A 0 2 Snoring Analysis Supine Right Left Prone REM NREM Total Snore duration 20.3 min Snores count 217 324 172 N/A 47 666 713 Snore mean duration 1.7 Sec Snores index 377 68 363 N/A 67.1 130.8 123.1 TST with snoring (%) 5.9% Desaturation Event Summary: Minimum %SpO2 Event Count Mean/Min/Max Duration(sec.) Desaturation Index % Time In Bed > 90 48 21.9 / 9.3 / 51.6 9.4 70.3 86 - 90 5 14.8 / 9.3 / 20.8 2.3 29.6 81 - 85 0 N/A 0.0 0.1 76 - 80 0 N/A 0.0 0.0 71 - 75 0 N/A 0.0 0.0 66 - 70 0 N/A 0.0 0.0 61 - 65 0 N/A 0.0 0.0 56 - 60 0 N/A 0.0 0.0 51 - 55 0 N/A 0.0 0.0 < 50 0 N/A 0.0 0.0 Total REM NREM Awake <50% 0.0 min. 0.0 min. 0.0 min. 0.0 min. 51 - 60% 0.0 min. 0.0 min. 0.0 min. 0.0 min. 61 - 70% 0.0 min. 0.0 min. 0.0 min. 0.0 min. 71 - 80% 0.0 min. 0.0 min. 0.0 min. 0.0 min. 81 - 90% 128.8 min. 21.9 min. 84.0 min. 23.0 min. 91 - 100% 305.0 min. 20.1 min. 221.3 min. 63.6 min. Average 91 90 91 91 Minimum SpO2 85 85 87 86 Desaturation Event Index 6.9 11.4 7.1 4.4 # Desat. Events below 89% 9 6 1 2 Time(%) with Saturation below 89% 2.3 0.8 1.1 0.4 Time(min.) with Saturation below 89% 10.1 3.5 4.7 1.9 Time (mins) REM (mins) NREM (mins) % of TST SpO2 Below 90% 40 8 N32 9.4 SpO2 Below 88% 2 0 0 0 Heart Rate Analysis Min (bpm) Max (bpm) Average (bpm) Awake 48 127 57 NREM 48 66 55 REM 54 67 60 Overall 48 67 56 Supplemental O2 Values Minimum O2 level: None Value Start Time End Time Milling Machine Tender Comments Mrs. Colón slept in the right, left and supine positions. No cardiac arrhythmia noted. Leg movements noted. No bruxism noted. Snoring was noted and scored as a 3 on a scale of 1 through 5. (0=no snoring, 5=snoring loud enough to be heard through a closed door or down the rivera way) Mrs. Colón awoke to use the restroom 1 times during the night. Mrs. Colón stated I did not sleep as well as I do when I am in my own bed. The final report will be interpreted and signed by a sleep physician. The completed physician report will then be placed in the patient medical record. Therapy (cm H2O) 0 TIB (min.) 442.5 TST (min.) 347.5 Sleep Onset (min.) 16.5 REM Onset From Sleep (min.) 110.5 Sleep Efficiency % 79 Wakefulness (%) 21 Wakefulness (min.) 95.0 NREM 1 (%) 8 NREM 1 (min.) 28.5 NREM 2 (%) 59 NREM 2 (min.) 203.5 NREM 3 (%) 21 NREM 3 (min.) 73.5 REM (%) 12 REM (min.) 42.0 # Arousals 156 Arousal Index 27 # Snore 713 Snore Index 123.1 AHI 8.6 AHI Supine 42 AHI Non-Supine 5 NREM AHI 8.2 REM AHI 11.4 RDI 9.2 # Obstructive Apnea 6 # Central Apnea 2 # Mixed Apnea 1 # Hypopneas 41 RERAs 3 Total Respiratory Events 57 Time Below SpO2 89% (min.) 8.2 Mean NREM SpO2 (%) 91 Mean REM SpO2 (%) 90 Mean Sleep SpO2 (%) 91 Min NREM SpO2 (%) 87 Min REM SpO2 (%) 85 Position Supine (min.) 46.8 Position Non-supine (min.) 313.0 LM Index Sleep 36.4 LM Index NREM 38.3 LM Index REM 22.9 Mean Heart Rate (bpm) 56 Min Heart Rate (bpm) 48
--- NOTE | 2017-05-18 13:39 | POLYSOMNOGRAPH REPORT ---
CLINICAL DATA: A 72-year-old female with BMI of 29.[address] Bishop, Hannah Cadet and myself for a sleep study. She had a previous CVA and has been having very difficult to control hypertension, currently on 4 different blood pressure medications with less than optimal control. Her providers have been concerned that sleep apnea may be contributing to her hypertension. She does have fatigue and difficulty falling asleep. Her [place] sleepiness score is 1/24. SLEEP ARCHITECTURE: Total sleep period was 426 minutes. Total sleep time was 347.5 minutes divided between 305.5 minutes of non-REM sleep and 42 minutes of REM sleep. Sleep onset latency was 16.5 minutes. REM latency was 110.5 minutes. Sleep efficiency was 79%. Wake after sleep onset was 78.5 minutes. Sleep consisted of stage N1 8%, stage N2 59%, stage N3 21%, and REM 12%. AROUSAL DATA: Xhd-[id number]-six arousals were recorded for an index of 27 per hour; 77 were spontaneous, 31 were due to PLMs. PLM DATA: Rda-huaqaba-mesowx limb movements during sleep were noted for an index of 36.4 per hour with arousal index of 5.5 per hour consistent with mild PLMD. RESPIRATORY DATA: Mild sleep apnea was documented. The AHI was 8.6. The RDI was 9.2. There were 2 central, 6 obstructive, and 1 mixed apneic episodes. The longest apneic episode was 32.4 seconds. There were 41 hypopneic episodes. The mean duration of hypopnea was 15.8 seconds. There were 3 RERAs. The longest RERA was 17.4 seconds. OXIMETRY DATA: Transient hypoxemia was seen. Oxygen mary was 85% during REM. The mean saturation was 91%. Time below 88% was 2 minutes. EKG: Heart rates ranged from 48-67 beats per minute. No arrhythmias were noted. 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 Snoring was moderate, rated 3 on a scale of 1-5. IMPRESSION: Mild sleep apnea/hypopnea with an AHI of 8.6 and RDI of 9.2 with transient nocturnal hypoxemia. RECOMMENDATIONS: The patient will be seen back in clinic to discuss her results and decide upon possible treatment. Treatment options include use of an oral appliance or CPAP. Clinical correlation is needed. TRENT
== END | disposition home or self-care (01) ==
LOC: C.NEUR 20:00
PROVIDERS: ATTEND Physician Assistant Medical
DX: G47.30 Sleep apnea, unspecified (principal); R09.02 Hypoxemia; Z86.73 Personal history of transient ischemic attack (TIA), and cerebral infarction without residual deficits; I10 Essential (primary) hypertension; R06.83 Snoring

== ENCOUNTER → 2017-05-26 | Outpatient (CLI) | payer MEDICARE ==
[2017-05-26 12:40] LABS: URINE APPEARANCE CLEAR (CLEAR); URINE BILIRUBIN NEG (NEG); URINE COLOR DK YELLOW; URINE EPITHELIAL CELL AUTO >30 /lpf (0-5); URINE NITRITE NEG (NEG); URINE PH >= 9.0 (4.5-7.5); URINE SPECIFIC GRAVITY 1.015 (1.000-1.030); UROBILINOGEN NEG (NEG)
[2017-05-26 12:43] LABS: MANUAL MICROSCOPIC REQUIRED? NO; REVIEW REQ? NO
[2017-05-26 12:44] LABS: BASO % 0.8 %; BASO ABS # 0.04 K/uL (0-0.2); COMPLETE YES; EOS % 2.6 %; HEMATOCRIT 40.2 % (37-47); IG% 0.2 %; LYMPH % 44.9 %; LYMPH ABS # 2.28 K/uL (1.2-3.4); MEAN CELL VOLUME 87.6 fL (80-100); MEAN CORPUSCULAR HEMOGLOBIN 30.1 pg (25-34); MEAN CORPUSCULAR HGB CONC 34.3 g/dl (32-36); MEAN PLATELET VOLUME 9.8 fL (7.4-10.4); MONO % 7.7 %; NEUT % 43.8 %; PLATELET COUNT 347 K/uL (130-400); RED BLOOD COUNT 4.59 M/uL (4.2-5.4); WHITE BLOOD COUNT 5.08 K/uL (4.8-10.8)
[2017-05-26 12:50] LABS: ALT/SGPT 20 U/L (12-78); BLOOD UREA NITROGEN 5 mg/dl (7-18); BUN/CREATININE RATIO 7.6 (10-20); CALCIUM 8.6 mg/dl (8.5-10.1); CARBON DIOXIDE 29 mmol/L (21-32); CHLORIDE 97 mmol/L (98-107); CREATININE 0.71 mg/dl (0.60-1.20); GLUCOSE 94 mg/dl (70-99); POTASSIUM 3.8 mmol/L (3.5-5.1); SODIUM 133 mmol/L (136-145)
[2017-05-26 13:00] LABS: ALB/GLOB RATIO 0.8 (0.9-2); ALKALINE PHOSPHATASE 75 U/L (45-117); AST/SGOT 17 U/L (15-37)
[2017-05-26 13:12] LABS: ESTIMATED AVERAGE GLUCOSE 117 mg/dl; HA1C FLAG Normal (Normal)
[2017-05-26 13:13] LABS: URINE PROTIEN/CREAT RATIO 0.2 (0-0.2)
== END | disposition home or self-care (01) ==
LOC: C.LABBFT 10:10
PROVIDERS: ATTEND Internal Medicine Nephrology
DX: I10 Essential (primary) hypertension (principal); E87.1 Hypo-osmolality and hyponatremia; E55.9 Vitamin D deficiency, unspecified; N28.9 Disorder of kidney and ureter, unspecified; Z86.73 Personal history of transient ischemic attack (TIA), and cerebral infarction without residual deficits; E03.9 Hypothyroidism, unspecified; R73.03 Prediabetes

== ENCOUNTER → 2017-07-05 | Outpatient (CLI) | payer MEDICARE ==
[2017-07-05 17:34] LABS: BLOOD UREA NITROGEN 5 mg/dl (7-18); BUN/CREATININE RATIO 6.9 (10-20); CALCIUM 8.7 mg/dl (8.5-10.1); CARBON DIOXIDE 31 mmol/L (21-32); CHLORIDE 97 mmol/L (98-107); CREATININE 0.77 mg/dl (0.60-1.20); GLUCOSE 98 mg/dl (70-99); MAGNESIUM 2.1 mg/dl (1.8-2.4); SODIUM 131 mmol/L (136-145)
== END | disposition home or self-care (01) ==
LOC: C.LABBFT 13:19
PROVIDERS: ATTEND Internal Medicine Endocrinology, Diabetes & Metabolism
DX: E87.1 Hypo-osmolality and hyponatremia (principal); E87.6 Hypokalemia

== ENCOUNTER → 2017-07-26 | Outpatient (CLI) | payer MEDICARE ==
[~2017-07-26] MED LIST changes: +OPTIRAY 320 IV PRN
--- NOTE | 2017-07-26 13:16 | DIAGNOSTIC IMAGING REPORT ---
CT SCAN OF THE ABDOMEN AND PELVIS COMBO ADRENAL PROTOCOL CLINICAL HISTORY: Hypoaldosteronism. COMPARISON STUDY: Renal ultrasound dated 02/21/2017. TECHNIQUE: Before and following the IV administration of 120 cc of Optiray 320, CT scan of the abdomen and pelvis is performed from the lung bases to the proximal femora using the adrenal protocol. Images are reviewed in the axial, sagittal, and coronal planes. IV contrast was administered without complication. A dose lowering technique was utilized adhering to the principles of ALARA. CT DOSE: 1720.11 mGycm FINDINGS: Lung bases: The heart is mildly enlarged and without pericardial effusion. The lung bases are clear. A tiny hiatal hernia is identified. Liver: The contrast-enhanced liver is normal in size, contour, and attenuation. There is no intrahepatic biliary ductal dilatation. The hepatic veins and portal veins are patent. Scattered subcentimeter hepatic hypodensities likely represent cysts but are too small for definitive characterization. 2 hypervascular foci in the left lobe of liver measuring up to 11 mm seen on images #99 and #121. Gallbladder: Unremarkable. Spleen: Normal in size and attenuation. Pancreas: There is moderate glandular atrophy of the pancreas. A 10 mm lipoma is incidentally noted in the pancreatic head. A 10 mm ovoid water attenuation structure in the uncinate process likely represents a small sidebranch IPMN. Adrenal glands: A 10 mm low-attenuation nodule in the left adrenal gland meets CT criteria for a fat-containing adenoma. The right adrenal gland is normal in appearance. Kidneys: No renal calculi are identified on the unenhanced series. The contrast enhanced kidneys demonstrate cortical atrophy and are without hydronephrosis. The kidneys enhance and excrete symmetrically. A 10 mm hypodensity in the anterior right kidney likely represents a cyst but is too small for definitive characterization. Abdominal vasculature: The abdominal aorta is normal in course and caliber noting moderate to advanced atherosclerotic calcification. Bowel: There is mild to moderate colonic fecal retention. No bowel obstruction is seen. The appendix is well-visualized and normal. Peritoneum: There is no intraperitoneal free air or abdominal ascites. There is a tiny fat-containing umbilical hernia. Lymphadenopathy: None. Pelvic viscera: The bladder is normal as visualized. The uterus is surgically absent. No adnexal lesion is seen. Skeletal structures: The skeletal structures are osteopenic. There is moderate lumbosacral spondylosis and scoliosis. A large hemangioma is present in the body of L1. No lytic or blastic lesions are seen. IMPRESSION: 1. A 10 mm low-attenuation nodule in the left adrenal gland meets CT criteria for a fat-containing adenoma. 2. No right adrenal lesion is seen. 3. There are 2 foci of arterial hypervascularity seen in left lobe of the liver. These were not demonstrated on the delayed images and likely represent foci of shunt vascularity versus flash filling hemangiomas. The are of doubtful significance if there is no cancer history. 4. Mild to moderate colonic fecal retention. 5. A 10 mm IPMN is suggested in the uncinate process of the pancreas. 6. Additional findings as above. Electronically signed by: Domingo Chaudhary M.D. 07/26/2017 1:14 PM Dictated Date/Time: 07/26/2017 1:04 PM
== END | disposition home or self-care (01) ==
LOC: C.CTS 10:57
PROVIDERS: ATTEND Internal Medicine Endocrinology, Diabetes & Metabolism
DX: E27.8 Other specified disorders of adrenal gland (principal); E26.9 Hyperaldosteronism, unspecified; K59.00 Constipation, unspecified

== ENCOUNTER → 2017-09-27 | Outpatient (CLI) | payer MEDICARE ==
[~2017-09-27] MED LIST changes: -OPTIRAY 320 IV PRN
--- NOTE | 2017-09-27 15:12 | MAMMOGRAPHY REPORT ---
BILATERAL DIGITAL SCREENING MAMMOGRAM TOMOSYNTHESIS WITH CAD: 09/27/2017 CLINICAL HISTORY: Routine screening examination. TECHNIQUE: Breast tomosynthesis in addition to standard 2D mammography was performed. Current study was also evaluated with a Computer Aided Detection (CAD) system. COMPARISON: Comparison is made to exams dated: 09/22/2016 mammogram, 10/01/2015 ultrasound, 10/01/2015 m ammogram, 09/22/2015 mammogram, 09/12/2013 mammogram, and 09/19/2014 mammogram - [facility] ter. BREAST COMPOSITION: There are scattered areas of fibroglandular density in both breasts. FINDINGS: There is architectural distortion in the central right breast, best seen on the tomosynthes is images, likely denoting the area of prior benign right breast surgery. No suspicious mass, asymme try, unexpected architectural distortion or cluster of microcalcifications is seen. IMPRESSION: ACR BI-RADS CATEGORY 1: NEGATIVE There is no mammographic evidence of malignancy. A 1 year screening mammogram is recommended. The pa tient will receive written notification of the results. Approximately 10% of breast cancers are not detected with mammography. A negative mammographic report should not delay biopsy if a clinically suggestive mass is present. Yu Langford M.D. ay/:09/27/2017 14:10:48 Carpentry Professional: Diana WHITE(Daniel)(M), [facility] letter sent: Normal 1/2 BI-RADS Code: ACR BI-RADS Category 1: Negative
== END | disposition home or self-care (01) ==
LOC: C.MAMM 10:42
PROVIDERS: ATTEND Internal Medicine
DX: Z12.31 Encounter for screening mammogram for malignant neoplasm of breast (principal)

== ENCOUNTER 2020-01-08 13:59 | Inpatient (IN) ==
--- NOTE | 2020-01-08 16:22 | Emergency Department Note ---
History of Present Illness General Chief complaint: Hypertension Stated complaint: HIGH BLOOD PRESSURE Time Seen by Provider: 01/08/20 16:04 Source: patient History of Present Illness Provider complaint: Hypertension Onset (ago): minute(s) Location: head Severity: severe Quality: + other (Blood pressure over 200 systolic) Exacerbated By: + other (Being in the hospital) Associated symptoms: no chest pain, no cough, no fever/chills, no headaches, no nausea/vomiting and no shortness of breath This is a 74-year-old female who was sent over from radiology due to elevated blood pressures. The patient has a history of hypertension as well as whitecoat hypertension and was having a routine carotid Doppler study when they noticed her blood pressure was over 200 systolic. She was sent here for further evaluation. She is completely asymptomatic and states that she has his problem frequently whenever she goes to the hospital or doctor's office. At home her blood pressures are not very high and she has been taking her medications as prescribed. She denies having any chest discomfort or pain, shortness of breath, palpitations, headache, visual symptoms, problems with urination, numbness or weakness on one side of her body, cough and cold symptoms, fever or any known exposure to COVID-19. She denies any abdominal pain, vomiting, diarrhea or loss of smell or taste. Home Medications Home Medications Medication Instructions Recorded Confirmed Type Calcium 600 + D(3) 1 cap PO BID 03/27/18 01/08/20 History aspirin 325 mg PO QAM 03/27/18 01/08/20 History cholecalciferol (vitamin D3) 4,000 unit PO QAM 03/27/18 01/08/20 History [Vitamin D3] multivitamin 1 tab PO QAM 03/27/18 01/08/20 History carbamazepine 400 mg 400 mg PO BID #180 tab 02/05/19 01/08/20 Rx tablet,extended release,12 hr hydralazine 25 mg tablet 25 mg PO Q8H #270 tab 05/21/19 01/08/20 Rx metoprolol tartrate 100 mg tablet See Rx Instructions .ROUTE 06/19/19 01/08/20 Rx .COMPLEX #270 tablet furosemide 20 mg tablet 20 mg PO BID #180 tab 08/02/19 01/08/20 Rx alprazolam 0.5 mg tablet 0.5 mg PO Q6H PRN #90 tab 12/17/19 01/08/20 Rx duloxetine 20 mg PO HS 01/08/20 01/08/20 History levothyroxine 112 mcg PO QAM 01/08/20 01/08/20 History simvastatin 20 mg PO HS 01/08/20 01/08/20 History telmisartan 80 mg PO QAM 01/08/20 01/08/20 History Allergies Allergy/AdvReac Type Severity Reaction Status Date / Time atorvastatin AdvReac Verified 01/08/20 17:25 sertraline AdvReac Verified 01/08/20 17:25 Past Med/Surg History Medical History Anxiety Aortic regurgitation Aortic stenosis Depression GERD (gastroesophageal reflux disease) History of rheumatic fever as a child Hyperlipidemia Hypertension Hypothyroidism Mitral regurgitation Osteopenia Pancreatic cyst Seizure LAST 29 YEARS AGO SIADH (syndrome of inappropriate ADH production) Sleep apnea CPAP Stroke 6 YEARS AGO [facility] - RLE WEAKNESS - ON ASA - DOES NOT FOLLOW W/ NEUROLOGIST Valvular heart disease Surgical History H/O colonoscopy History of thyroidectomy History of tooth extraction History of total hysterectomy with bilateral salpingo-oophorectomy (BSO) History of tubal ligation Family History Sister Myocardial infarction Depression Stroke Hypertension Father Cardiac disorder Colon cancer Brother Depression Hypertension Mother Hypertension Denies family history of Breast cancer Social History Preferred Language: British Communication Ability: Effective Visual Impairment: No Limitations 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 and A total of 10 systems reviewed and were otherwise negative Physical Exam Vital Signs Vital Signs - 24 hr 01/08/20 14:04 01/08/20 15:14 01/08/20 16:26 Temperature 37.1 C Temperature Source Oral Pulse Rate 61 Pulse Rate [Finger] 69 65 Respiratory Rate 18 18 20 Respiratory Effort / Characteristics Non-Labored Non-Labored Respiratory Depth Normal Normal Respiratory Pattern Regular Blood Pressure 206/84 H Blood Pressure [Right Arm] 218/96 H 231/91 H Blood Pressure Mean 124 Blood Pressure Mean [Right Arm] 136 137 Blood Pressure Position Sitting Blood Pressure Position [Right Arm] Sitting Pulse Oximetry 97 97 97 Oxygen Delivery Method Room Air Room Air Room Air Sepsis Recent Fever Within 48 Hours No Sepsis Action Taken by Nursing No Action Required 01/08/20 17:17 Temperature Temperature Source Pulse Rate Pulse Rate [Finger] 64 Respiratory Rate 18 Respiratory Effort / Characteristics Respiratory Depth Respiratory Pattern Blood Pressure Blood Pressure [Right Arm] 186/90 H Blood Pressure Mean Blood Pressure Mean [Right Arm] 122 Blood Pressure Position Blood Pressure Position [Right Arm] Pulse Oximetry 97 Oxygen Delivery Method Room Air Sepsis Recent Fever Within 48 Hours Sepsis Action Taken by Nursing Constitutional: Vital signs reviewed. Eyes: Pupils are equal round reactive to light. Conjunctiva are noninjected. ENT: Pharynx is clear without erythema or exudate. Mucous membranes are moist. Neck supple without meningeal signs. Respiratory: Clear to auscultation bilaterally. Breath sounds are equal bilat erally. Cardiovascular: Regular rate and rhythm. No rubs or gallops. GI: Soft, nondistended and nontender. Bowel sounds are present. Musculoskeletal: No peripheral edema. No lower extremity tenderness. Integumentary: No cyanosis. or jaundice. Neurological: The patient is awake and alert. No focal deficits. Psychiatric: Slightly anxious appearing. Course Administered Medications Discontinued Medications Nitroglycerin (Nitro-Bid 2%) 0.5 inch EXT NOW ONE Stop: 01/08/20 18:23 Last Admin: 01/08/20 18:34 Dose: 0.5 inch Documented by: [id number] Critical Care Time Critical Care Time: Yes Total Critical Care Time: 35 I have personally spent approximately 35 minutes of critical care time in the direct management of this patient. This includes bedside care, interpretation of diagnostic studies, and testing, discussion with consultants, patient, and family members, and other required patient management activities. These minutes are in excess of all separately billable procedures. Medical Decision Making Differential Diagnosis Whitecoat hypertension, essential hypertension, hypertensive emergency, kidney disease, anxiety, medication noncompliance Medical Records Attestation: I reviewed the patient's medical records. The patient had a carotid Doppler today which was unremarkable. She did see Dr. Boyer of nephrology on December 18 who had the following to say about her health: HYPONATREMIA: -- Serum sodium is stable at 136 mg/dL. Continue Furosemide to promote free water excretion. -- [address]: No lung lesion. Thyroid nodule reported (patient is now s/p thyroidectomy) HYPERTENSION: -- Blood pressure was elevated today. Home BP diary reviewed today. Average SBP 140 mmHg -- Continue Metoprolol, Telmisartan, Furosemide and PRN Hydralazine -- 08/03 renal artery doppler: no stenosis reported -- 08/[address]: benign fat containing nodule seen involving the L adrenal gland. Endocrinology did not start Spironolactone as bp was controlled and serum aldosterone level was not elevated. KIDNEY LESION: -- 03/03 renal US report: L renal lesion is an 11 mm cyst. No solid mass reported. Home Medications Current Medication List: was personally reviewed by me Laboratory Data Attestation: I reviewed the patient's lab results. Result diagrams: 01/08/20 16:22 01/08/20 16:22 Lab Results 01/08/20 01/08/20 Range/Units 16:22 16:22 WBC 6.48 (4.8-10.8) K/uL RBC 4.59 (4.2-5.4) M/uL Hgb 14.2 (12.0-16.0) g/dL Hct 41.1 (37-47) % MCV 89.5 (80-100) fL MCH 30.9 (25-34) pg MCHC 34.5 (32-36) g/dL RDW Std Deviation 38.7 (36.4-46.3) fL RDW Coeff of Luis 12.0 (11.5-14.5) % Plt Count 286 (130-400) K/uL MPV 9.8 (7.4-10.4) fL Immature Gran % (Auto) 0.3 % Neut % (Auto) 57.2 % Lymph % (Auto) 35.8 % [place] % (Auto) 5.2 % Eos % (Auto) 1.2 % Baso % (Auto) 0.3 % Neut # (Auto) 3.70 (1.4-6.5) K/uL Lymph # (Auto) 2.32 (1.2-3.4) K/uL [place] # (Auto) 0.34 (0.11-0.59) K/uL Eos # (Auto) 0.08 (0-0.5) K/uL Baso # (Auto) 0.02 (0-0.2) K/uL Immature Gran # (Auto) 0.02 (0.00-0.02) K/uL Sodium 139 (136-145) mmol/L Potassium 4.0 (3.5-5.1) mmol/L Chloride 103 (98-107) mmol/L Carbon Dioxide 31 (21-32) mmol/L Anion Gap 5.0 (3-11) BUN 10 (7-18) mg/dl Creatinine 1.04 (0.6-1.2) mg/dl Est Cr Clr Drug Dosing Not Reportable Est GFR ( Amer) 61.7 Est GFR (Non-Af Amer) 53.3 BUN/Creatinine Ratio 9.6 L (10-20) Glucose 109 H (70-99) mg/dl Calcium 9.2 (8.5-10.1) mg/dl Total Bilirubin 0.2 (0.2-1) mg/dl AST 19 (15-37) U/L ALT 24 (12-78) U/L Alkaline Phosphatase 94 (45-117) U/L Troponin I 0.105 H* (0-0.045) ng/ml Total Protein 8.6 H (6.4-8.2) gm/dl Albumin 4.0 (3.4-5.0) gm/dl Globulin 4.6 H (2.5-4.0) gm/dl Albumin/Globulin Ratio 0.9 (0.9-2) ECG Data Attestation: I personally reviewed and interpreted this ECG as follows: Indication: + other (Hypertension) Rate (beats per minute): 61 Rhythm: + normal sinus ECG Intervals/blocks: no First degree AV block and no Left bundle branch block ECG ST segments: + ST elevation (Slight elevation in leads V1 and V2) ECG Findings: no PVCs Comparison ECG Date: from (February 08, 2017) Change: no significant change Additional Comments: Repeat twelve-lead EKG per my interpretation shows normal sinus rhythm with a rate of 67 bpm. She does have persistent mild elevations in the septal leads which is unchanged from her prior EKG from today as well as from 2017. No PVCs are noted. Blood Pressure Blood Pressure Findings: Elevated blood pressure Blood Pressure Disposition: Referred to patients primary care provider SMILEY Narrative I did evaluate the patient as noted above. The patient is completely asymptomatic. She was sent here because of elevated blood pressure. She is slightly anxious here and does have a history of whitecoat hypertension. IV access was established. I did place an order for continuous cardiac monitoring. The monitor showed normal sinus rhythm with a rate of 68. I did order and personally review the patient's 12-lead EKG as described above. She does have LVH with slight elevation of the ST segment in V1 and V2. This is present on her twelve-lead EKG from February 08, 2017. Her blood pressure is coming down spontaneously. Her repeat blood pressure is 186/90. Continues to have no symptoms. I did order and review the patient's blood work as noted in the electronic medical record. CBC is unremarkable without leukocytosis or anemia. Her electrolytes are unremarkable. Renal function is preserved. Her troponin, however, is slightly elevated at 0.1. I did reassess the patient. She continues to be asymptomatic and denies having any history of chest discomfort or pain or dyspnea. I did repeat a twelve-lead EKG which showed no significant change from prior EKGs. I did treat her with nitroglycerin paste as well as asp irin p.o. I did discuss the case with Dr. Judd of cardiology. He did not recommend anticoagulation and did not feel this likely represented ACS. He agreed with my plan to hospitalize her and continue blood pressure control. The patient was agreeable with this plan. I did discuss the case with Dr. Nicholas as well as the casey saw operator. Should her blood pressure not respond to the nitroglycerin she will be started on IV antihypertensives. Impression & Plan Hypertensive emergency, Elevated troponin Discharge Plan Visit Data Chief Complaint: Hypertension Stated Complaint: HIGH BLOOD PRESSURE ED Provider: Atif Cruz Discharge Problem: Hypertensive emergency, Elevated troponin Forms Stand Alone Forms: My [employer] Prescriptions Prescriptions: No Action carbamazepine 400 mg tablet extended release 12 hr 400 mg PO BID Qty: 180 RF: 3 hydralazine 25 mg tablet 25 mg PO Q8H Qty: 270 RF: 3 metoprolol tartrate 100 mg tablet See Rx Instructions .ROUTE .COMPLEX Qty: 270 RF: 4 furosemide 20 mg tablet 20 mg PO BID Qty: 180 RF: 3 alprazolam 0.5 mg tablet 0.5 mg PO Q6H PRN (Reason: anxiety) Qty: 90 RF: 0 multivitamin Tablet 1 tab PO QAM RF: 0 aspirin 325 mg Tablet 325 mg PO QAM RF: 0 Calcium 600 + D(3) 600 mg calcium- 200 unit Capsule 1 cap PO BID RF: 0 cholecalciferol (vitamin D3) [Vitamin D3] 2,000 unit Capsule 4,000 unit PO QAM RF: 0 simvastatin 20 mg tablet 20 mg PO HS RF: 0 telmisartan 80 mg tablet 80 mg PO QAM RF: 0 levothyroxine 112 mcg tablet 112 mcg PO QAM RF: 0 duloxetine 20 mg capsule,delayed release(DR/EC) 20 mg PO HS RF: 0 Referrals Referrals: Modesto Bishop MD [Primary Care Provider] -
[2020-01-08 16:31] LABS: Basophils # (auto) 0.02 K/uL (0-0.2); Basophils % (auto) 0.3 %; Eosinophils # (auto) 0.08 K/uL (0-0.5); Eosinophils % (auto) 1.2 %; Hematocrit (blood only) 41.1 % (37-47); Hemoglobin 14.2 g/dL (12.0-16.0); Immature Granulocytes # (auto) 0.02 K/uL (0.00-0.02); Immature Granulocytes % (auto) 0.3 %; Lymphocytes # (auto) 2.32 K/uL (1.2-3.4); Lymphocytes % (auto) 35.8 %; Mean Corpuscular Hemoglobin 30.9 pg (25-34); Mean Corpuscular Hgb Conc 34.5 g/dL (32-36); Mean Corpuscular Volume 89.5 fL (80-100); Mean Platelet Volume 9.8 fL (7.4-10.4); Monocytes # (auto) 0.34 K/uL (0.11-0.59); Monocytes % (auto) 5.2 %; Neutrophils % (auto) 57.2 %; Platelet Count 286 K/uL (130-400); RDW Standard Deviation 38.7 fL (36.4-46.3); Red Blood Count 4.59 M/uL (4.2-5.4); White Blood Count 6.48 K/uL (4.8-10.8)
[2020-01-08 16:51] LABS: Alanine Aminotransferase 24 U/L (12-78); Aspartate Aminotransferase 19 U/L (15-37); BUN Creatinine Ratio 9.6 (10-20); Blood Urea Nitrogen 10 mg/dl (7-18); Calcium 9.2 mg/dl (8.5-10.1); Carbon Dioxide 31 mmol/L (21-32); Chloride 103 mmol/L (98-107); Est GFR (African American) 61.7; Est GFR (Non-African American) 53.3; Glucose 109 mg/dl (70-99); Sodium 139 mmol/L (136-145)
[2020-01-08 16:54] LABS: Albumin Globulin Ratio 0.9 (0.9-2); Alkaline Phosphatase 94 U/L (45-117); Bilirubin,Total 0.2 mg/dl (0.2-1); Globulin 4.6 gm/dl (2.5-4.0); Total Protein 8.6 gm/dl (6.4-8.2)
[2020-01-08 18:08] LABS: Troponin I 0.105 ng/ml (0-0.045)
[2020-01-08] MEDS ORDERED: NITROGLYCERIN 2% OINTMENT 30GM TUBE EXT ONE (18:22)
--- NOTE | 2020-01-08 18:49 | History & Physical Report ---
Date of Service January 08, 2020 Assessment & Plan (1) Hypertensive emergency: On admission systolic blood pressure 220 mmHg and radial pulse equal in both upper extremities, no widened mediastinum on chest x-ray, no chest pain End organ damage present in the form of elevated troponin Continue Lasix 20 mg twice daily, hydralazine 25 mg every 8 hours, metoprolol tartrate 150 mg twice daily. Given her usual hydralazine in the ER, she can also have a usual evening dose. Continue addition of Nitropaste 2% 0.5 inches every 6 hours IV hydralazine 10 mg every 4 hourly as needed for systolic blood pressure greater than 200 TTE tomorrow Trend troponins overnight -likely will initially trend up as not reflected in current treatment but hopefully should be downtrending by the morning (2) Elevated troponin: No chest pain or shortness of breath to suggest ACS. No ischemic EKG changes. Suggestive of demand ischemia in the setting of hypertensive emergency. Treatment as above No need for aspirin as patient is already taken her usual 325 mg p.o. today If patient has chest pain or shortness of breath overnight this should be treated as acute coronary syndrome with cardiology consult for the morning. (3) Hypertension: Patient reported prior secondary hypertension work-up with no known cause found. Secondary hypertension work-up as per nephrology note: Renal artery Doppler 2017: No stenosis reported CT abdomen 2018: Benign fat-containing nodule seen involving left adrenal gland. Followed up by endocrinology did not start spironolactone as blood pressure was controlled and serum aldosterone level was not elevated Hyperaldosteronism is noted in the patient problem list (4) Aortic stenosis, moderate: As per previous cardiology note -stable for multiple years (5) History of stroke: History of this. Continue aspirin 325 p.o. every morning, simvastatin 20 mg p.o. at bedtime (6) Hypothyroidism: Postoperative. [12/20] TSH WNL Levothyroxine 112 mcg p.o. every morning (7) Sleep apnea: CPAP HS (8) DVT prophylaxis: SCDs, early mobility as long as troponin trending down Admission and Anticipated Discharge Date Admission Date: January 08, 2020 History of Present Illness Chief Complaint: Hypertension Primary Care Provider: David Bishop MD Jossie Colón is a 74-year-old female who presents to the ER on the advice of radiology due to significantly elevated systolic blood pressure over 200 while she was having an outpatient carotid ultrasound. The patient denies any vision disturbance, headaches, chest pain, shortness of breath. No palpitations, claudication, PND, orthopnea, presyncope or syncope. She currently feels at her baseline self. Of note requested ultrasound shows no significant stenosis bilaterally. She does note a longstanding history of having elevated blood pressures especially with whitecoat hypertension. Although recently has not been medically compliant and measuring her blood pressures at home since her last ne phrology appointment. She notes her usual systolic blood pressures at home running 140-150 and denies any orthostatic symptoms. She notes both Dr. Mansfield and Dr. Estes both jointly manage her blood pressure. She is compliant with her medication except for the lunchtime hydralazine dose she takes intermittently. No fevers, chills, shortness of breath, cough, loss of taste or smell. No known COVID-19 exposure. Allergies Allergy/AdvReac Type Severity Reaction Status Date / Time atorvastatin AdvReac Verified 01/08/20 17:25 sertraline AdvReac Verified 01/08/20 17:25 Home Medications Home Medications Medication Instructions Recorded Confirmed Type Calcium 600 + D(3) 1 cap PO BID 03/27/18 01/08/20 History aspirin 325 mg PO QAM 03/27/18 01/08/20 History cholecalciferol (vitamin D3) 4,000 unit PO QAM 03/27/18 01/08/20 History [Vitamin D3] multivitamin 1 tab PO QAM 03/27/18 01/08/20 History carbamazepine 400 mg 400 mg PO BID #180 tab 02/05/19 01/08/20 Rx tablet,extended release,12 hr hydralazine 25 mg tablet 25 mg PO Q8H #270 tab 05/21/19 01/08/20 Rx metoprolol tartrate 100 mg tablet See Rx Instructions .ROUTE 06/19/19 01/08/20 Rx .COMPLEX #270 tablet furosemide 20 mg tablet 20 mg PO BID #180 tab 08/02/19 01/08/20 Rx alprazolam 0.5 mg tablet 0.5 mg PO Q6H PRN #90 tab 12/17/19 01/08/20 Rx duloxetine 20 mg PO HS 01/08/20 01/08/20 History levothyroxine 112 mcg PO QAM 01/08/20 01/08/20 History simvastatin 20 mg PO HS 01/08/20 01/08/20 History telmisartan 80 mg PO QAM 01/08/20 01/08/20 History Past Med/Surg History Medical History Anxiety Aortic regurgitation Aortic stenosis Depression GERD (gastroesophageal reflux disease) History of rheumatic fever as a child Hyperlipidemia Hypertension Hypothyroidism Mitral regurgitation Osteopenia Pancreatic cyst Seizure LAST 29 YEARS AGO SIADH (syndrome of inappropriate ADH production) Sleep apnea CPAP Stroke 6 YEARS AGO [facility] - RLE WEAKNESS - ON ASA - DOES NOT FOLLOW W/ NEUROLOGIST Valvular heart disease Surgical History H/O colonoscopy History of thyroidectomy History of tooth extraction History of total hysterectomy with bilateral salpingo-oophorectomy (BSO) History of tubal ligation Family History Sister Myocardial infarction Depression Stroke Hypertension Father Cardiac disorder Colon cancer Brother Depression Hypertension Mother Hypertension Denies family history of Breast cancer Social History Preferred Language: Maldivian Communication Ability: Effective Visual Impairment: No Limitations Manager Women Required: No Beliefs That Will Affect Care: None Current Living Situation: Spouse Other Information That Helps Us Care for You: No Feels Safe at Home: Yes Safety Concerns: Feels Safe At This Time Smoking Status: Former smoker Second Hand Exposure: No ; Hx Alcohol Use: No Hx Substance Use: No Review of Systems 2 Review of Systems: All systems reviewed & are unremarkable except as noted in HPI & below Physical Exam Constitutional: well developed and well nourished; no acute distress Eyes: PERRL, conjunctivae normal, anicteric sclerae ENMT: external ear and nose normal, oropharynx normal Neck: trachea midline, no thyromegaly Respiratory: normal respiratory effort, lungs clear to auscultation Cardiovascular: Rate/Rhythm: regular rate and regular rhythm Heart Sounds: + murmur (Systolic, LUSB, 2/6) Extremities: normal capillary refill and + pedal edema (Trace bilateral); no calf tenderness Gastrointestinal (Abdomen): normal bowel sounds, soft, nontender, no hepatosplenomegaly Musculoskeletal: no cyanosis or clubbing, extremities motor strength 5/5 Skin: no rashes, warm and dry Neurologic: CN's II-XI intact bilaterally, moves all extremities and awake; no focal motor deficits and not confused Speech / Cognition: normal speech Motor/Sensory: no tremor, no pronator drift and no sensory deficit Psychiatric: A+Ox3, euthymic affect Results & Data Results & Data ([facility]) Vital Signs (Past 12 Hours) Vital Signs Temp Pulse Pulse Resp BP BP Pulse Ox 01/08/20 17:17 64 18 186/90 H 97 01/08/20 16:26 65 20 231/91 H 97 01/08/20 15:14 69 18 218/96 H 97 01/08/20 14:04 37.1 C 61 18 206/84 H 97 Diagnostic Findings XR chest 1V portable IMPRESSION: No active disease in the chest. ECG Indication: other Rate (beats per minute): 61 Rhythm: normal sinus Findings: + other (Left ventricular hypertrophy criteria present); no acute ischemic change Comparison ECG Date: from (February 04, 2017) Change: the following changes noted (Resolution of T wave inversions in lateral leads) Code Status & VTE Plan Code Status Full VTE Prophylaxis Plan VTE Prophylaxis will be ordered: Yes PG Care Time/CCT Total # of Minutes Spent Total Time Spent with Patient: Total time spent is greater than 50% in coordination of care (as documented) at patient's floor/unit and/or counseling patient: Coding Level of Care Code 61783 Initial Inpt Care Lvl 3 Diagnoses Hypertensive emergency I16.1 Elevated troponin R79.89 Hypertension I10 Hypertension type: essential hypertension Aortic stenosis, moderate I35.0 History of stroke Z86.73 Hypothyroidism E89.0 Hypothyroidism type: postoperative Sleep apnea G47.30 DVT prophylaxis Z29.9 (1) Hypothyroidism Hypothyroidism type: postoperative Qualified Code(s): E89.0 - Postprocedural hypothyroidism (2) Hypertension Hypertension type: essential hypertension Qualified Code(s): I10 - Essential (primary) hypertension
[2020-01-08] MEDS ORDERED: ASPIRIN CHEW 324 MG PO STA (19:07)
[2020-01-08] MEDS ORDERED: NITROGLYCERIN 2% OINTMENT 30GM TUBE EXT SCH (19:15)
--- NOTE | 2020-01-08 19:28 | XRay Report ---
XR chest 1V portable CLINICAL HISTORY: shortness of breath on exertion COMPARISON STUDY: 02/08/2017 FINDINGS: There is a thoracolumbar scoliosis. The heart is borderline enlarged. There is no failure. There is no focal pulmonary consolidation. There are no pleural effusions. Slight prominence of basil ar interstitial markings likely relates to technical factors.[There is surgical clips within the base of the neck. IMPRESSION: No active disease in the chest. ACT 112: Negative or not required by law. Electronically signed by: Tanmay Roland M.D. 01/08/2020 7:27 PM
[2020-01-08] MEDS ORDERED: MAGNESIUM HYDROXIDE SUSP 30 ML UDC PO PRN (21:04)
[2020-01-08] MEDS ORDERED: ALPRAZolam 0.5 MG TABLET PO PRN ×2 (21:04→23:11)
[2020-01-08] MEDS ORDERED: ACETAMINOPHEN 325 MG TAB PO PRN (21:04)
[2020-01-08] MEDS ORDERED: ALUMINUM/MAGNESIUM SUSP 30 ML UDC PO PRN (21:04)
[2020-01-08] MEDS ORDERED: DULOXETINE HCL 20 MG CAP PO SCH (21:04)
[2020-01-08] MEDS ORDERED: POLYETHYLENE (MIRALAX) 17 GM PACK PO PRN (21:04)
[2020-01-08] MEDS ORDERED: SIMVASTATIN 20 MG TAB PO SCH (21:04)
[2020-01-08] MEDS ORDERED: ONDANSETRON INJ 2 MG/ML 2 ML VIAL IV PRN (21:04)
[2020-01-08] MEDS: METOPROLOL TARTRATE 50 MG TAB PO SCH (21:46)
[2020-01-08] MEDS: FUROSEMIDE 20 MG TAB PO SCH (21:47)
[2020-01-08] MEDS: CARBAMAZEPINE 200 MG TABCR PO SCH (21:47)
[2020-01-08] MEDS ORDERED: HydrALAZINE HCL 20 MG/ML VIAL IV PRN (23:10)
[2020-01-08] MEDS: NITROGLYCERIN 2% OINTMENT 30GM TUBE EXT SCH (23:53)
[2020-01-09] MEDS ORDERED: NITROGLYCERIN 2% OINTMENT 30GM TUBE EXT SCH
[2020-01-09] MEDS ORDERED: HydrALAZINE HCL 20 MG/ML VIAL IV PRN (02:00)
[2020-01-09] MEDS: NITROGLYCERIN 2% OINTMENT 30GM TUBE EXT SCH ×2 (05:10→12:25)
[2020-01-09] MEDS ORDERED: LEVOTHYROXINE SODIUM 112 MCG TABLET PO SCH (06:30)
[2020-01-09] MEDS: FUROSEMIDE 20 MG TAB PO SCH (08:22)
[2020-01-09] MEDS: CARBAMAZEPINE 200 MG TABCR PO SCH (08:22)
[2020-01-09] MEDS: METOPROLOL TARTRATE 50 MG TAB PO SCH (08:23)
[2020-01-09 08:39] LABS: Hematocrit (blood only) 41.6 % (37-47); Hemoglobin 14.2 g/dL (12.0-16.0); Mean Corpuscular Hemoglobin 30.1 pg (25-34); Mean Corpuscular Hgb Conc 34.1 g/dL (32-36); Mean Corpuscular Volume 88.3 fL (80-100); Mean Platelet Volume 9.7 fL (7.4-10.4); Platelet Count 308 K/uL (130-400); RDW Coefficient of Variation 11.9 % (11.5-14.5); RDW Standard Deviation 38.2 fL (36.4-46.3); Red Blood Count 4.71 M/uL (4.2-5.4); White Blood Count 8.62 K/uL (4.8-10.8)
[2020-01-09] MEDS ORDERED: TELMISARTAN 40 MG TAB PO SCH (09:00)
[2020-01-09] MEDS ORDERED: MULTIVITAMIN TAB PO SCH (09:00)
[2020-01-09] MEDS ORDERED: ASPIRIN 325 MG ECTAB PO SCH (09:00)
[2020-01-09] MEDS ORDERED: CHOLECALCIFEROL 1,000 UNITS 25 MCG TAB PO SCH (09:00)
[2020-01-09 09:06] LABS: BUN Creatinine Ratio 13.7 (10-20); Calcium 9.2 mg/dl (8.5-10.1); Creatinine Clr Calc Pharmacy 65.6 ml/min; Est GFR (African American) 90.2; Est GFR (Non-African American) 77.8
[2020-01-09 09:12] LABS: Troponin I 0.19 ng/ml (0-0.045)
--- NOTE | 2020-01-09 09:26 | Discharge Summary ---
Date of Service January 09, 2020 Admission HPI Per Admitting Provider Jossie Colnó is a 74-year-old female who presents to the ER on the advice of radiology due to significantly elevated systolic blood pressure over 200. The patient denies any vision disturbance, headaches, chest pain, shortness of breath. No palpitations, claudication, PND, orthopnea, presyncope or syncope. She currently feels at her baseline self. She does note a longstanding history of having elevated blood pressures especially with whitecoat hypertension. Although recently has not been medically compliant and measuring her blood pressures at home since her last nephrology appointment. She notes her usual systolic blood pressures at home running 140-150 and denies any orthostatic symptoms. She notes both Dr. Mansfield and Dr. Estes both jointly manage her blood pressure. She is compliant with her medication except for the lunchtime hydralazine dose she takes intermittently. No fevers, chills, shortness of breath, cough, loss of taste or smell. No known COVID-19 exposure. Admission Exam Per Admitting Provider Constitutional: well developed and well nourished; no acute distress Eyes: PERRL, conjunctivae normal, anicteric sclerae ENMT: external ear and nose normal, oropharynx normal Neck: trachea midline, no thyromegaly Respiratory: normal respiratory effort, lungs clear to auscultation Cardiovascular: RRR, no murmur, no edema Gastrointestinal (Abdomen): normal bowel sounds, soft, nontender, no hepatosplenomegaly Musculoskeletal: no cyanosis or clubbing, extremities motor strength 5/5 Skin: no rashes, warm and dry Neurologic: CN's II-XI intact bilaterally, moves all extremities and awake; no focal motor deficits and not confused Speech / Cognition: normal speech Motor/Sensory: no tremor, no pronator drift and no sensory deficit Psychiatric: A+Ox3, euthymic affect Principal Diagnosis Hypertensive emergency Discharge Exam Constitutional WD/WN, vitals as above cooperative Eyes + anicteric sclerae ENMT external ear and nose normal, oropharynx normal Neck normal visual inspection and trachea midline Respiratory normal respiratory effort, lungs clear to auscultation Cardiovascular Rate/Rhythm: regular rate and regular rhythm Heart Sounds: normal S1, normal S2 and + murmur (systolic ejection ) Extremities: no pedal edema Gastrointestinal (Abdomen) Inspection/Auscultation: abdomen normal to inspection Skin no rashes, warm and dry Psychiatric A+Ox3, euthymic affect Discharge Data Allergies Allergy/AdvReac Type Severity Reaction Status Date / Time atorvastatin AdvReac Verified 01/08/20 17:25 sertraline AdvReac Verified 01/08/20 17:25 Consultations 01/08/20 18:28 ED Decision to Admit Stat Hospital Course (1) Hypertensive emergency: Mrs. Colón is a 74 yo F who was admitted to [facility] for hypertensive emergency. On the evening of 01/07 she came to the hospital for her regularly scheduled carotid ultrasound. While in the radiology department, her systolic blood pressure was found to be 220. Despite being totally asymptomatic, she was directed to the ED for further care. In the ED she was found to have an elevated troponin, which was considered evidence of end organ damage, and thus admitted for hypertensive emergency. Mrs. Colón was treated with IV hydralazine and nitro paste, which reduced her BP to non-urgent ranges. As for her elevated troponin, levels peaked at 0.21 and downtrended before discharge. Her EKG was not concerning for ischemia. She had a TTE, which showed normal function, no wall motion abnormalites. She was advised to continue her home BP medication regimen as follows: Telmisartan 80mg, daily, Metoprolol Tartrate 100mg, daily, Furosemide 20mg, BID, and Hydralazine 25mg, TID. Mrs. Colón expressed non-compliance with her mid-day hydralazine dose. She reported being directed by her electrical design engineer, Dr. Estes, to take her BP and only if certain parameters are met, to use the mid-day hydralazine dose. Mrs. Colón confesses that she has not been taking her blood pressure mid-day as directed, and is thus going without her third hydralazine dose on a regular basis. Outpatient items to do: If current BP medication regimen is too complicated for patient, consider adding a calcium channel yenny. Total Time Total Time Spent Total Time Spent (In Minutes): <30 Discharge Plan Discharge Items Patient Disposition: Home - Self-Care Reason For Visit: HYPERTENSIVE EMERGENCY Discharge Diagnosis: Hypertensive emergency Activity: Resume your previous activity Non-emergency contact: Primary Care Provider Call non-emergency contact if: you have any medication questions Follow-up/Referrals: Modesto Bishop MD [Primary Care Provider] - 01/17/20 2:45 pm (Please, follow up at Dr. Bishop's office with his associate, Garett Dinero, on January 16 at 2:45 pm. *If you need to change this appointment, call their office at [phone].) Diet: Heart Healthy Addtl Attending Provider Instructions: You were hospitalized at [facility] for evaluation of an elevated blood pressure, known as "hypertensive emergency." Your systolic blood pressure, or the "top" number was 220. Normal is below 120. Your blood pressure was treated with IV medication while in the hospital and improved. We recommend you continue to take your home medication regimen as follows: Telmisartan, 80mg, daily. Metoprolol Tartrate 100mg, daily. Furosemide 20mg, tw ice daily, and Hydralazine 25mg, three times daily. You said that your mid-day dose of hydralazine is only as needed, ie if your blood pressure exceeds a certain value. However, you told us that you have not been routinely checking your blood pressure. If possible, we recommend you do so, as the reading determines whether or not you should take your mid-day dose of hydralazine. Perhaps going without this mid-day dose of hydralazine is why your pressure was found to be so high. If the task of checking your blood pressure during the day is too difficult for you to remember to do, you may want to consider discussing an alternative medication regimen with Dr. Estes. While in the hospital you had an elevated troponin reading. Troponin is a cardiac enzyme that is released whenever your heart is under strain. It was likely increased because of how high your blood pressure was (the higher the blood pressure, the harder your heart has to pump in order to overcome the force). Your EKG was reassuring, meaning there were no signs of a heart attack. An echocardiogram, or ultrasound of your heart was also done. It showed no significant changes from your last study on 02/09/17. LV Systolic function was normal, there were no regional wall motion abnormalities, mild to moderate aortic stenosis. In the future, if you are experiencing chest pain, changes in your vision or an intense headache while your blood pressure is elevated, please contact your doctor or come to the emergency department. Pending Studies at Discharge: No Stand-Alone Forms: [facility], Smoking Cessation Medications and DC Order Prescriptions: Continued carbamazepine 400 mg tablet extended release 12 hr 400 mg PO BID Qty: 180 RF: 3 hydralazine 25 mg tablet 25 mg PO Q8H Qty: 270 RF: 3 metoprolol tartrate 100 mg tablet See Rx Instructions .ROUTE .COMPLEX Qty: 270 RF: 4 furosemide 20 mg tablet 20 mg PO BID Qty: 180 RF: 3 alprazolam 0.5 mg tablet 0.5 mg PO Q6H PRN (Reason: anxiety) Qty: 90 RF: 0 multivitamin Tablet 1 tab PO QAM RF: 0 aspirin 325 mg Tablet 325 mg PO QAM RF: 0 Calcium 600 + D(3) 600 mg calcium- 200 unit Capsule 1 cap PO BID RF: 0 cholecalciferol (vitamin D3) [Vitamin D3] 2,000 unit Capsule 4,000 unit PO QAM RF: 0 simvastatin 20 mg tablet 20 mg PO HS RF: 0 telmisartan 80 mg tablet 80 mg PO QAM RF: 0 levothyroxine 112 mcg tablet 112 mcg PO QAM RF: 0 duloxetine 20 mg capsule,delayed release(DR/EC) 20 mg PO HS RF: 0 Discharge Orders: Discharge Order (Routine); Ordered 01/09/20 Ordered By: Juan Garrison Admission Data Admit Date/Time: 01/08/20 18:48 Attending Provider: Uvaldo Vences Admit Provider: Dawson Nicholas Primary Care Provider: Modesto Bishop Other Providers: Dawson Nicholas Other Interventions: Discharge Summary Assessment (RN) Last Done: 01/09/20 14:15 DC Date/Time DO NOT enter until pt leaves facility: 01/09/20 14:39 Supervising Physician Co-Signing Physician Notes I personally examined the patient and verified all cain points of history and exam, discussed case, and agree with decision making with Dr Woodard. feeling fine. BP doing better. notes that she believes she can do better at remembering mid day hydralazine vitals noted nad heent nc at mmm breathing unlabored no accessory muscles good effort skin no rashes no pallor or icterus hypertensive emergency -interesting in that she essentially was sent to ER for asymptomatic but markedl y uncontrolled HTN - but then found to have asymptomatic (and no echo changes) elevated troponin - fitting with L heart strain from markedly increased afterload. BP now doing better. in discussions of ongoing management for now she'll try to remember mid day hydralazine better (discussed setting cell phone alarm, having a small supply of hydralazine in her purse so when she's out and realizes she forgot she can have it with her); if this fails (either still too hard to remember TID or not helping enough w BP) then can consider long acting nitrate (BP did respond quite well to transdermal nitro here in hospital) or peripheral calcium channel yenny since trop downtrending, asymptomatic, echo reassuring - safe/stable for home. Resident Activity Tracking Resident Involvement: Resident Care Provided Care Provided: Adult Hospital Medicine
--- NOTE | 2020-01-09 12:55 | XCELERA ---
[id number]
--- NOTE | 2020-01-09 13:12 | Electrocardiogram Report ---
Test Reason : Blood Pressure : / mmHG Vent. Rate : 061 BPM Atrial Rate : 061 BPM P-R Int : 176 ms QRS Dur : 100 ms QT Int : 456 ms P-R-T Axes : 060 023 060 degrees QTc Int : 459 ms Normal sinus rhythm Left ventricular hypertrophy with repolarization abnormality Abnormal ECG When compared with ECG of 08-FEB-2017 05:30, T wave inversion no longer evident in Lateral leads Confirmed by Henry Kelley ([id number]) on 01/09/2020 1:12:12 PM Referred By: REFERRED SELF Confirmed By:Henry Kelley
--- NOTE | 2020-01-09 13:18 | Electrocardiogram Report ---
Test Reason : Blood Pressure : / mmHG Vent. Rate : 067 BPM Atrial Rate : 067 BPM P-R Int : 172 ms QRS Dur : 102 ms QT Int : 464 ms P-R-T Axes : 058 023 054 degrees QTc Int : 490 ms Poor data quality, interpretation may be adversely affected Normal sinus rhythm Moderate voltage criteria for LVH, may be normal variant Prolonged QT Abnormal ECG When compared with ECG of 08-JAN-2020 16:15, (unconfirmed) No significant change was found Confirmed by Henry Kelley ([id number]) on 01/09/2020 1:17:51 PM Referred By: REFERRED SELF Confirmed By:Henry Kelley
--- NOTE | 2020-01-09 16:03 | Billing Data ---
Date of Service January 09, 2020 Coding Level of Care Code D/C Day Management <30 mins
== END 2020-01-09 14:39 | disposition home or self-care (01) | DRG 305 ==
LOC: ED 13:59 → 2N 18:48 → SUATTDRO 18:48 → 2N 20:00

== ENCOUNTER 2023-03-27 13:39 | Observation (INO) ==
[2023-03-27] MEDS ORDERED: SODIUM CHLORIDE 0.9% 500 ML IV SCH (13:45)
--- NOTE | 2023-03-27 13:55 | Emergency Department Note ---
Impression & Plan Seizure, Bradycardia, Complete left bundle branch block (LBBB) ED Provider Note NAME: HAMMAD COSTELLO AGE: 78 SEX: F : 1945 ARRIVES VIA: Ambulance INFORMANT: Patient, EMS ED PROVIDER(S): Henry Gustafson DO CHIEF COMPLAINT: Seizure HPI: The patient is a 78-year-old female who presented to the emergency department after having a seizure. She was at her home while her daughter was cutting her hair. I did receive a prehospital notification about this patient. The patient was bradycardic. Blood pressure was stable so she was not treated with atropine. The patient was postictal prior to arrival but continues to improve upon arrival to the emergency department. The patient herself states that she has had what she describes as sinus congestion over the last few days. She does describe a slight frontal headache. She denies having any vomiting. She denies having any chest pain or difficulty breathing. She denies having low er extremity swelling. She does take Tegretol and states that she has been compliant with her outpatient medications otherwise. She states she has not had a seizure in almost 30 years. ROS: See above HPI for pertinent positives & negatives. A total of 10 systems reviewed and were otherwise negative. PAST MEDICAL HISTORY: See Below PAST SURGICAL HISTORY: See Below FAMILY HISTORY: See Below SOCIAL HISTORY: See Below HOME MEDICATIONS: See Below ALLERGIES: See Below VITALS: See Below PHYSICAL EXAMINATION: GENERAL: The patient is awake but somewhat somnolent. She does respond to questioning appropriately. EYES: The conjunctivae are clear. The pupils are round and reactive. EARS, NOSE, MOUTH AND THROAT: The nose is without any evidence of any deformity. NECK: The neck is nontender and supple. RESPIRATORY: Normal respiratory effort is noted there is no evidence of wheezing rhonchi or rales CARDIOVASCULAR: Rate of cardiac and regular heart sounds were noted au scultation. Systolic murmur was noted. GASTROINTESTINAL: The abdomen is soft. Abdomen is nontender. MUSCULOSKELETAL/EXTREMITIES: There is no evidence of gross deformity full range of motion is noted in the hips and shoulders. SKIN: There is no obvious evidence of any rash. There are no petechiae, pallor or cyanosis noted. NEUROLOGIC: Patient is awake and oriented x3 strength is symmetric patellar reflexes are 2+ bilaterally MEDICAL DECISION MAKING: The patient is a 78-year-old female who presented to the emergency department by ambulance. The patient arrived after having a seizure at her home. She does have a history of seizures but she has not had a seizure in 30 years. The patient has been compliant with her outpatient seizure medication. Patient was initially found to be bradycardic. She was not symptomatic with this bradycardia although her EKG does show a new left bundle branch block pattern to her previous tracing. I discussed the patient's laboratory and radiographic studies with her and her family. Because of the compounding findings such as EKG I will [facility] Th e patient may require further inpatient monitoring. Triage Nursing notes reviewed. Prior medical records reviewed Vital Signs: reviewed and remarkable for elevated blood pressure and bradycardia cardia. Differential diagnosis: Epilepsy, infection, hypoglycemia, electrolyte abnormalities, cardiac sources, intracerebral event, trauma, toxicologic, neurologic, syncope, as well as other pathologies. ER treatment provided: See below Diagnostics interpreted by me: ECG: EKG was obtained in the emergency department. My interpretation is sinus bradycardia 53 bpm. Left bundle branch block pattern was noted. There was nonspecific ST segment abnormalities noted which could be consistent with a bundle branch. This was compared to a tracing from January 08, 2020. At that time the QRS duration was 102 ms. Prehospital EKG was evaluated. My interpretation is sinus bradycardia at 44 bpm. Left bundle branch block pattern was noted. Nonspecific ST segment abnormalities noted. This compares favorably to the initial tracing that was obtained in the emergency department. Cardiac Monitoring: An order was placed for continuous cardiac monitoring. The monitor shows a rate of 56 bpm with sinus bradycardia. so how helpful he is Laboratory studies: As stated above and show below. Imaging studies: See below. Radiographic imaging was reviewed by myself Consultation(s): I discussed this case with Dr. Nicholas who [facility]. Past Med/Surg History Medical History Allergic rhinitis Anxiety Aortic regurgitation Aortic stenosis Depression GERD (gastroesophageal reflux disease) History of rheumatic fever as a child History of vitamin D deficiency Hyperaldosteronism Hyperlipidemia Hypertension Hypothyroidism Mitral regurgitation Osteopenia Pancreatic cyst Seizure LAST 29 YEARS AGO SIADH (syndrome of inappropriate ADH production) Sleep apnea CPAP Stroke 6 YEARS AGO [facility] - RLE WEAKNESS - ON ASA - DOES NOT FOLLOW W/ NEUROLOGIST Surgical History H/O colonoscopy History of thyroidectomy History of tooth extraction History of total hysterectomy with bilateral salpingo-oophorectomy (BSO) History of tubal ligation Family History Sister Myocardial infarction Depression Stroke Hypertension Father Cardiac disorder Colon cancer Colorectal cancer Prostate cancer Brother Depression Hypertension Prostate cancer Mother Hypertension Coronary heart disease Other Heart disease No family history of adverse response to anesthesia No family history of bleeding disorder Denies family history of Ovarian cancer Breast cancer Social History Smoking Status: Never smoker Tobacco Type: Cigarettes Cigarettes Per Day: 5; Second Hand Exposure: No; Do You Dip or Chew Tobacco: No; Hx Alcohol Use: No Hx Substance Use: No Preferred Language: Wolof Communication Ability: Effective Visual Impairment: No Limitations Hearing Ability: Use of Hearing Aid Pest Technician Required: No Beliefs That Will Affect Care: None marital status: Current Living Situation: Spouse current occupational status: retired Feels Safe at Home: Yes Childhood Exposure to Second-Hand Smoke: No Diet: regular caffeine: Yes Dental Care, Regularly: Yes Physical Activity Frequency: Does not Exercise Seatbelt Use: always Sunscreen Use: Yes Assistive Devices: CPAP and Glasses Allergies Allergies Allergy/AdvReac Type Severity Reaction Status Date / Time atorvastatin AdvReac Verified 03/16/23 13:36 sertraline AdvReac Verified 03/16/23 13:36 Home Meds Home Medications Medication Instructions Recorded Confirmed aspirin 325 mg tablet 325 mg PO QAM 03/27/18 03/16/23 cholecalciferol (vitamin D3) 50 4,000 unit PO QAM 03/27/18 03/16/23 mcg (2,000 unit) capsule (Vitamin D3) multivitamin 1 tab PO QAM 03/27/18 03/16/23 Previous Rx's Medication Instructions Recorded loratadine 10 mg tablet See Rx Instructions .Route 05/13/20 .COMPLEX #30 tabs clonidine HCl 0.1 mg tablet 0.1 mg PO BID PRN hypertensive 07/22/20 emergency #60 tabs simvastatin 40 mg tablet 40 mg PO HS #90 tabs 04/28/22 furosemide 20 mg tablet See Rx Instructions .Route 07/20/22 .COMPLEX #180 tabs metoprolol tartrate 100 mg tablet 150 mg PO BID #270 tabs 08/09/22 levothyroxine 125 mcg tablet 125 mcg PO DAILY #90 tabs 12/27/22 carbamazepine 400 mg 400 mg PO BID #180 tabs 01/17/23 tablet,extended release,12 hr fluticasone propionate 50 2 spray intranasal DAILY #16 grams 01/31/23 mcg/actuation nasal spray,suspension alprazolam 0.5 mg tablet 0.5 mg PO HS PRN anxiety #90 tabs 02/01/23 telmisartan 80 mg tablet See Rx Instructions .Route 02/21/23 .COMPLEX #90 tabs duloxetine 20 mg capsule,delayed See Rx Instructions .Route 02/25/23 release .COMPLEX #90 caps hydralazine 50 mg tablet 50 mg PO TID #270 tabs 03/16/23 Results & Data (ED) Vital Signs Vital Signs - 24 hr 03/27/23 13:52 03/27/23 13:46 03/27/23 13:46 Temperature 36.5 C Temperature Source Oral Pulse Rate 55 L Pulse Rhythm Regular Pulse Strength Normal Respiratory Rate 18 Respiratory Effort / Characteristics Non-Labored Respiratory Depth Normal Respiratory Pattern Regular Blood Pressure 199/82 H Blood Pressure Mean 121 Pulse Oximetry 95 95 95 Oxygen Delivery Method Room Air Room Air Room Air Oxygen Flow Rate 0 Sepsis Recent Fever Within 48 Hours No Sepsis New/Unexplained Change in Mental Status No Sepsis Action Taken by Nursing No Action Required 03/27/23 13:53 03/27/23 14:00 03/27/23 15:00 Temperature Temperature Source Pulse Rate 52 L 54 L 56 L Pulse Rhythm Pulse Strength Respiratory Rate 18 19 Respiratory Effort / Characteristics Respiratory Depth Respiratory Pattern Blood Pressure 189/85 H 190/85 H Blood Pressure Mean 119 120 Pulse Oximetry 97 96 Oxygen Delivery Method Oxygen Flow Rate Sepsis Recent Fever Within 48 Hours Sepsis New/Unexplained Change in Mental Status Sepsis Action Taken by [facility] Medications Current Medication List: was personally reviewed by me Laboratory Data Attestation: I reviewed the patient's lab results. 03/27/23 13:55 03/27/23 13:55 Lab Results 03/27/23 03/27/23 03/27/23 Range/Units 13:55 13:55 13:55 WBC 7.46 (4.8-10.8) K/ul RBC 4.63 (4.20-5.40) M/uL Hgb 13.9 (12.0-16.0) g/dl Hct 40.9 (37.0-47.0) % MCV 88.3 (80.0-100.0) fL MCH 30.0 (25.0-34.0) pg MCHC 34.0 (32.0-36.0) g/dL RDW Std Deviation 38.4 (36.4-46.3) fL RDW Coeff of Luis 11.9 (11.5-14.5) % Plt Count 258 (130-400) K/uL MPV 9.9 (9.4-12.4) fL Immature Gran % (Auto) 0.3 % Neut % (Auto) 51.1 % Lymph % (Auto) 33.9 % Alpine % (Auto) 13.0 % Eos % (Auto) 1.2 % Baso % (Auto) 0.5 % Neut # (Auto) 3.81 (1.40-6.50) K/uL Lymph # (Auto) 2.53 (1.20-3.40) K/uL Alpine # (Auto) 0.97 H (0.11-0.59) K/uL Eos # (Auto) 0.09 (0.00-0.50) K/uL Baso # (Auto) 0.04 (0.00-0.20) K/uL Immature Gran # (Auto) 0.02 (0.01-0.20) K/uL PT 10.9 (9.0-12.0) Seconds INR 1.0 (0.9-1.1) APTT 27.4 (21.0-31.0) Seconds PTT Ratio 1.0 Sodium 132 L (136-145) mmol/L Potassium 3.6 (3.5-5.1) mmol/L Chloride 95 L (98-107) mmol/L Carbon Dioxide 28 (21-32) mmol/L Anion Gap 9 (3-11) BUN 14 (6-23) mg/dl Creatinine 0.85 (0.6-1.2) mg/dl Est Cr Clr Drug Dosing 54.1 ml/min Est GFR ( Amer) 76.6 ml/min Est GFR (Non-Af Amer) 66.1 ml/min BUN/Creatinine Ratio 16.5 (10-20) Glucose 128 H (70-99(Fasting)) mg/dl Calcium 8.9 (8.6-10.3) mg/dl Magnesium 2.2 (1.7-2.4) mg/dl Total Bilirubin 0.4 (0.2-1.0) mg/dl AST 24 (13-39) U/L ALT 15 (7-52) U/L Alkaline Phosphatase 63 (34-104) U/L Total Creatine Kinase 52 (26-192) U/L Troponin I High Sens 13.6 (0-14) pg/ml Total Protein 7.9 (6.0-8.3) gm/dl Albumin 4.4 (3.4-5.0) gm/dl Globulin 3.5 (2.5-4.0) gm/dl Albumin/Globulin Ratio 1.3 (0.9-2) Lipase 54 (11-82) U/L TSH (0.300-4.500) uIu/ml Carbamazepine (4-12) mcg/ml 03/27/23 03/27/23 Range/Units 13:55 13:55 WBC (4.8-10.8) K/ul RBC (4.20-5.40) M/uL Hgb (12.0-16.0) g/dl Hct (37.0-47.0) % MCV (80.0-100.0) fL MCH (25.0-34.0) pg MCHC (32.0-36.0) g/dL RDW Std Deviation (36.4-46.3) fL RDW Coeff of Luis (11.5-14.5) % Plt Count (130-400) K/uL MPV (9.4-12.4) fL Immature Gran % (Auto) % Neut % (Auto) % Lymph % (Auto) % Alpine % (Auto) % Eos % (Auto) % Baso % (Auto) % Neut # (Auto) (1.40-6.50) K/uL Lymph # (Auto) (1.20-3.40) K/uL Alpine # (Auto) (0.11-0.59) K/uL Eos # (Auto) (0.00-0.50) K/uL Baso # (Auto) (0.00-0.20) K/uL Immature Gran # (Auto) (0.01-0.20) K/uL PT (9.0-12.0) Seconds INR (0.9-1.1) APTT (21.0-31.0) Seconds PTT Ratio Sodium (136-145) mmol/L Potassium (3.5-5.1) mmol/L Chloride (98-107) mmol/L Carbon Dioxide (21-32) mmol/L Anion Gap (3-11) BUN (6-23) mg/dl Creatinine (0.6-1.2) mg/dl Est Cr Clr Drug Dosing ml/min Est GFR ( Amer) ml/min Est GFR (Non-Af Amer) ml/min BUN/Creatinine Ratio (10-20) Glucose (70-99(Fasting)) mg/dl Calcium (8.6-10.3) mg/dl Magnesium (1.7-2.4) mg/dl Total Bilirubin (0.2-1.0) mg/dl AST (13-39) U/L ALT (7-52) U/L Alkaline Phosphatase (34-104) U/L Total Creatine Kinase (26-192) U/L Troponin I High Sens (0-14) pg/ml Total Protein (6.0-8.3) gm/dl Albumin (3.4-5.0) gm/dl Globulin (2.5-4.0) gm/dl Albumin/Globulin Ratio (0.9-2) Lipase (11-82) U/L TSH 0.389 (0.300-4.500) uIu/ml Carbamazepine 9.5 (4-12) mcg/ml Administered Medications Discontinued Medications Sodium Chloride (Nss) 500 mls @ 999 mls/hr IV .Q31M KAIT Stop: 03/27/23 14:15 Last Infusion: 03/27/23 14:32 Dose: 0 mls/hr Documented By: Admin: 03/27/23 13:58 Dose: 999 mls/hr Documented By: ALYSIA Imaging Data Attestation: I personally reviewed and interpreted this imaging study as follows: My Impression: 1 view chest x-ray was obtained in the emergency department. My interpretation is no free air or definite infiltrate, final report below. CT the brain was obtained in the emergency department. My interpretation is no intracranial hemorrhage or mass effect, final report below. Radiologist's Impression: Chest X-Ray 03/27/23 13:46 XR chest 1V portable HISTORY: seizure COMPARISON: Chest 01/08/2020. FINDINGS: No pneumothorax. No pleural effusions. There are low lung volumes. The heart remains enlarged. No new focal lung consolidations to suggest a pneumonia. No evidence for pulmonary edema. S-shaped scoliosis again noted. Prior thyroidectomy. IMPRESSION: Stable cardiomegaly. Otherwise, no acute process within the chest. ACT 112: Negative or not required by law. Electronically signed by: Tera Zamudio M.D. 03/27/2023 2:[address] 03/27/23 13:46 CT SCAN OF THE BRAIN WITHOUT IV CONTRAST CLINICAL HISTORY: Syncope. COMPARISON STUDY: CT of the brain dated 07/11/2022. TECHNIQUE: Unenhanced axial CT scan of the brain is performed from the vertex to the skull base. A dose lowering technique was utilized adhering to the principles of ALARA. CT DOSE: 625.80 mGy.cm FINDINGS: Brain parenchyma: There is age-related involutional change noting moderate subcortical and periventricular microangiopathic disease. There is no hemorrhage, mass effect, or evidence of acute territorial ischemia by CT criteria. A tiny chronic lacunar infarct is noted in the left thalamus. Fregoso- white matter differentiation is preserved. No extra-axial fluid collection is seen. Calcifications are noted along the midline falx. Ventricles, sulci, cisterns: Prominent secondary to involutional change. Intracranial vasculature: There is atherosclerotic calcification of the cavernous carotid arteries. Calvarium: Unremarkable. Sinuses and mastoids: There is moderate mucosal thickening within the right sphenoid sinus. Mild mucosal thickening is noted in the maxillary antra. There is trace mucosal thickening within the frontal and ethmoid sinuses. The mastoid air cells are well pneumatized. Orbits: The bony orbits are grossly intact. IMPRESSION: There is no hemorrhage, mass effect, or evidence of acute territor ial ischemia by CT criteria. ACT 112: Negative or not required by law. Electronically signed by: Domingo Chaudhary M.D. 03/27/2023 2:53 PM Discharge Plan Visit Data Chief Complaint: Syncope ED Provider: Sj,Henry R Discharge Problem: Seizure, Bradycardia, Complete left bundle branch block (LBBB) Patient Disposition: Being Evaluated by Hospitalist Forms Stand Alone Forms: My [facility] Prescriptions Prescriptions: No Action loratadine 10 mg tablet See Rx Instructions .ROUTE .COMPLEX Qty: 30 5RF Dose Instruction: TAKE 1 TABLET BY MOUTH EVERY DAY Rx Instructions: TAKE 1 TABLET BY MOUTH EVERY DAY simvastatin 40 mg tablet 40 mg PO HS Qty: 90 3RF furosemide 20 mg tablet See Rx Instructions .ROUTE .COMPLEX Qty: 180 3RF Dose Instruction: TAKE 1 TABLET TWICE A DAY Rx Instructions: TAKE 1 TABLET TWICE A DAY metoprolol tartrate 100 mg tablet 150 mg PO BID Qty: 270 3RF levothyroxine 125 mcg tablet 125 mcg PO DAILY Qty: 90 3RF carbamazepine 400 mg tablet extended release 12 hr 400 mg PO BID Qty: 180 3RF alprazolam 0.5 mg tablet 0.5 mg PO HS PRN (Reason: anxiety) Qty: 90 0RF telmisartan 80 mg tablet See Rx Instructions .ROUTE .COMPLEX Qty: 90 3RF Dose Instruction: TAKE 1 TABLET EVERY MORNING Rx Instructions: TAKE 1 TABLET EVERY MORNING duloxetine 20 mg capsule,delayed release(DR/EC) See Rx Instructions .ROUTE .COMPLEX Qty: 90 3RF Dose Instruction: TAKE 1 CAPSULE AT BEDTIME Rx Instructions: TAKE 1 CAPSULE AT BEDTIME clonidine HCl 0.1 mg tablet 0.1 mg PO BID PRN (Reason: hypertensive emergency) Qty: 60 2RF Rx Instructions: Take up to 2 pills a day as needed for elevated BP (>180 mm Hg) fluticasone propionate 50 mcg/actuation spray,suspension 2 spray intranasal DAILY Qty: 16 2RF Rx Instructions: administer into each nostril hydralazine 50 mg tablet 50 mg PO TID Qty: 270 3RF multivitamin Tablet 1 tab PO QAM aspirin 325 mg Tablet 325 mg PO QAM cholecalciferol (vitamin D3) [Vitamin D3] 2,000 unit Capsule 4,000 unit PO QAM Referrals Referrals: David Bishop MD [Primary Care Provider] -
--- NOTE | 2023-03-27 14:05 | XRay Report ---
XR chest 1V portable HISTORY: seizure COMPARISON: Chest 01/08/2020. FINDINGS: No pneumothorax. No pleural effusions. There are low lung volumes. The heart remains enlarg ed. No new focal lung consolidations to suggest a pneumonia. No evidence for pulmonary edema. S-shape d scoliosis again noted. Prior thyroidectomy. IMPRESSION: Stable cardiomegaly. Otherwise, no acute process within the chest. ACT 112: Negative or not required by law. Electronically signed by: Tera Zamudio M.D. 03/27/2023 2:04 PM
[2023-03-27 14:11] LABS: Basophils # (auto) 0.04 K/uL (0.00-0.20); Basophils % (auto) 0.5 %; Eosinophils # (auto) 0.09 K/uL (0.00-0.50); Eosinophils % (auto) 1.2 %; Hematocrit (blood only) 40.9 % (37.0-47.0); Hemoglobin 13.9 g/dl (12.0-16.0); Immature Granulocytes # (auto) 0.02 K/uL (0.01-0.20); Immature Granulocytes % (auto) 0.3 %; Lymphocytes # (auto) 2.53 K/uL (1.20-3.40); Lymphocytes % (auto) 33.9 %; Mean Corpuscular Volume 88.3 fL (80.0-100.0); Mean Platelet Volume 9.9 fL (9.4-12.4); Monocytes # (auto) 0.97 K/uL (0.11-0.59); Neutrophils # (auto) 3.81 K/uL (1.40-6.50); Neutrophils % (auto) 51.1 %; Platelet Count 258 K/uL (130-400); RDW Coefficient of Variation 11.9 % (11.5-14.5); RDW Standard Deviation 38.4 fL (36.4-46.3); Red Blood Count 4.63 M/uL (4.20-5.40); White Blood Count 7.46 K/ul (4.8-10.8)
[2023-03-27 14:34] LABS: Albumin Globulin Ratio 1.3 (0.9-2); Albumin Level 4.4 gm/dl (3.4-5.0); BUN Creatinine Ratio 16.5 (10-20); Bilirubin,Total 0.4 mg/dl (0.2-1.0); Calcium 8.9 mg/dl (8.6-10.3); Creatinine Clr Calc Pharmacy 54.1 ml/min; Est GFR (African American) 76.6 ml/min; Est GFR (Non-African American) 66.1 ml/min; Globulin 3.5 gm/dl (2.5-4.0); Magnesium 2.2 mg/dl (1.7-2.4); Potassium 3.6 mmol/L (3.5-5.1); Total Protein 7.9 gm/dl (6.0-8.3)
[2023-03-27 14:39] LABS: Troponin I High Sensitivity 13.6 pg/ml (0-14)
[2023-03-27 14:47] LABS: Partial Thromboplastin Time 27.4 Seconds (21.0-31.0); Prothrombin Time 10.9 Seconds (9.0-12.0)
--- NOTE | 2023-03-27 14:55 | CT Scan Report ---
CT SCAN OF THE BRAIN WITHOUT IV CONTRAST CLINICAL HISTORY: Syncope. COMPARISON STUDY: CT of the brain dated 07/11/2022. TECHNIQUE: Unenhanced axial CT scan of the brain is performed from the vertex to the skull base. A do se lowering technique was utilized adhering to the principles of ALARA. CT DOSE: 625.80 mGy.cm FINDINGS: Brain parenchyma: There is age-related involutional change noting moderate subcortical and periventri cular microangiopathic disease. There is no hemorrhage, mass effect, or evidence of acute territorial ischemia by CT criteria. A tiny chronic lacunar infarct is noted in the left thalamus. Fregoso-white ma tter differentiation is preserved. No extra-axial fluid collection is seen. Calcifications are noted along the midline falx. Ventricles, sulci, cisterns: Prominent secondary to involutional change. Intracranial vasculature: There is atherosclerotic calcification of the cavernous carotid arteries. Calvarium: Unremarkable. Sinuses and mastoids: There is moderate mucosal thickening within the right sphenoid sinus. Mild muco nathen thickening is noted in the maxillary antra. There is trace mucosal thickening within the frontal and ethmoid sinuses. The mastoid air cells are well pneumatized. Orbits: The bony orbits are grossly intact. IMPRESSION: There is no hemorrhage, mass effect, or evidence of acute territorial ischemia by CT cheryl garcia. ACT 112: Negative or not required by law. Electronically signed by: Domingo Chaudhary M.D. 03/27/2023 2:53 PM
[2023-03-27 17:21] LABS: Appearance Urine Clear (Clear); Bilirubin Urine Negative (Negative); Blood Urine Negative (Negative); Color Urine Yellow; Glucose Urine UA Negative (Negative); Ketones Urine Trace (Negative); Leukocyte Esterase Urine Negative (Negative); Nitrite Urine Negative (Negative); Protein Urine Negative (Negative); Specific Gravity Urine 1.012 (1.000-1.030); Urobilinogen Urine Negative (Negative)
--- NOTE | 2023-03-27 17:39 | History & Physical Report ---
Date of Service March 27, 2023 Assessment & Plan (1) Unresponsive episode: Plan: Based on clinical picture of head-bobbing, eye rolling, and bradycardia, suspect syncope rather than seizure ?vasovagal in setting of recently increased anti-hypertensives, viral illness and valvular disease Given bradycardia noted by EMS consider reduction in metoprolol however will monitor on telemetry initially with her normal dose as long as HR > 60 New LBBB on EKG - low suspicion of ACS given lack of chest pain or shortness of breath, will continue to trend troponin Ordered TTE (last echo on 07/14/2022 with EF 45 to 50%), mild/mod , moderate MR ?progressed Carotid US ordered as occurred on head flexion However given concern for seizure-like activity will get: Head CT: NAF Ordered brain MRI with seizure protocol Prolactin ordered (2) Labile hypertension: Plan: SBP 190s on admission Patient on multiple anti-HTN medications (hydralazine, metoprolol tartrate, telmisartan) and clonidine as needed Patient reportedly took all medications this morning Hydralazine recently increased 25--> 50 3 times daily on 01/30/2023 Continuous telemetry monitoring (3) History of seizure: Plan: Last reported seizure 35 years ago, but sounds like a full tonic-clonic seizure (not like today) On carbamazepine with no recent dose changes Prolactin ordered (4) Anxiety: Plan: Xanax as needed for anxiety (5) Hypothyroidism: Plan: Continue Synthroid Plan VTE prophylaxis Lovenox 40mg SQ daily Diet heart healthy Disposition observation to PCU Full code Admission and Anticipated Discharge Date Admission Date: March 27, 2023 History of Present Illness Chief Complaint: Syncope/seizure Primary Care Provider: David Bishop MD Jossie Colón is a 78-year-old female with PMH of seizures, CVA (10 years ago), HLD, hypothyroidism, osteoporosis, anxiety, and multiple heart murmurs. She presents to the ED after an episode where she became unresponsive and reportedly had a seizure. She became bradycardic, recorded as low as 39 bpm per EMS and cyanosis of lips noted. Given [employer]. On exam, her , daughter, and granddaughter are present and provide additional history. Per , the patient became unresponsive for 6 minutes with head bobbing, tremors, and eye rolling; she then "snapped out of it", but was still somewhat unresponsive she reportedly went pale and was sweating at the time. ?Syncopal episode. No loss of continence. No drooling. No facial droop. No slurred speech following the event. Patient took all of her morning meds, including Tegretol which she takes as antiseizure ppx (no recent change dose change). She reports that her last seizure was 35 years ago; per , that seizure involved convulsions and looked much different than what happened today. Patient also had a stroke 10 years ago, but reports that it felt much different than what occurred today. Of note, the patient's hydralazine was increased from 25 --> 50mg 3 times daily in January. In regard to her high blood pressure, patient reports that she regularly runs high and that she suffers from white-coat syndrome and hospitals. Patient endorses recent sinus pressure, but denies fever, dizziness, lightheadedness, headache, chest pain, SOB, abdominal pain, blood in the urine/stool, or leg swelling. Notes a generalized macular papular rash that she normally gets when she is unwell and is self limiting. Allergies Allergy/AdvReac Type Severity Reaction Status Date / Time atorvastatin AdvReac Unknown CAN'T Verified 03/27/23 16:24 REMEMBER sertraline AdvReac Unknown CAN'T Verified 03/27/23 16:24 REMEMBER Home Medications Medication Instructions Recorded Confirmed Type aspirin 325 mg tablet 325 mg PO QAM 03/27/18 03/27/23 History cholecalciferol (vitamin D3) 50 4,000 unit PO QAM 03/27/18 03/27/23 History mcg (2,000 unit) capsule (Vitamin D3) multivitamin 1 tab PO QAM 03/27/18 03/27/23 History clonidine HCl 0.1 mg tablet 0.1 mg PO BID PRN hypertensive 07/22/20 03/27/23 Rx emergency #60 tabs simvastatin 40 mg tablet 40 mg PO HS #90 tabs 04/28/22 03/27/23 Rx metoprolol tartrate 100 mg tablet 150 mg PO BID #270 tabs 08/09/22 03/27/23 Rx carbamazepine 400 mg 400 mg PO BID #180 tabs 01/17/23 03/27/23 Rx tablet,extended release,12 hr fluticasone propionate 50 2 spray intranasal DAILY #16 grams 01/31/23 03/27/23 Rx mcg/actuation nasal spray,suspension alprazolam 0.5 mg tablet 0.5 mg PO HS PRN anxiety #90 tabs 02/01/23 03/27/23 Rx hydralazine 50 mg tablet 50 mg PO TID #270 tabs 03/16/23 03/27/23 Rx duloxetine 20 mg capsule,delayed 20 mg PO HS 03/27/23 03/27/23 History release furosemide 20 mg tablet 20 mg PO BID 03/27/23 03/27/23 History levothyroxine 125 mcg tablet 125 mcg PO DAILYBB 03/27/23 03/27/23 History loratadine 10 mg tablet 10 mg PO DAILY 03/27/23 03/27/23 History telmisartan 80 mg tablet 80 mg PO DAILY 03/27/23 03/27/23 History Past Med/Surg History Medical History Allergic rhinitis Anxiety Aortic regurgitation Aortic stenosis Depression GERD (gastroesophageal reflux disease) History of rheumatic fever as a child History of vitamin D deficiency Hyperaldosteronism Hyperlipidemia Hypertension Hypothyroidism Mitral regurgitation Osteopenia Pancreatic cyst Seizure LAST 29 YEARS AGO SIADH (syndrome of inappropriate ADH production) Sleep apnea CPAP Stroke 6 YEARS AGO [facility] - RLE WEAKNESS - ON ASA - DOES NOT FOLLOW W/ NEUROLOGIST Surgical History H/O colonoscopy History of thyroidectomy History of tooth extraction History of total hysterectomy with bilateral salpingo-oophorectomy (BSO) History of tubal ligation Family History Sister Myocardial infarction Depression Stroke Hypertension Father Cardiac disorder Colon cancer Colorectal cancer Prostate cancer Brother Depression Hypertension Prostate cancer Mother Hypertension Coronary heart disease Other Heart disease No family history of adverse response to anesthesia No family history of bleeding disorder Denies family history of Ovarian cancer Breast cancer Social History Smoking Status: Never smoker Tobacco Type: Cigarettes Cigarettes Per Day: 5; Second Hand Exposure: No; Do You Dip or Chew Tobacco: No; Tobacco Cessation Education Requested by Patient: No Hx Alcohol Use: No Hx Substance Use: No Preferred Language: Cantonese Yakut Communication Ability: Effective Visual Impairment: No Limitations Hearing Ability: Use of Hearing Aid Hog Feeder Required: No Beliefs That Will Affect Care: None marital status: Current Living Situation: Spouse current occupational status: retired Other Information That Helps Us Care for You: No Feels Safe at Home: Yes Safety Concerns: Feels Safe At This Time Childhood Exposure to Second-Hand Smoke: No Diet: regular caffeine: Yes Dental Care, Regularly: Yes Physical Activity Frequency: Does not Exercise Seatbelt Use: always Sunscreen Use: Yes Assistive Devices: CPAP Review of Systems Review of Systems: All systems reviewed & are unremarkable except as noted in HPI & below Physical Exam Constitutional: WD/WN, vitals as above Eyes: PERRL, conjunctivae normal, anicteric sclerae ENMT: external ear and nose normal, oropharynx normal Respiratory: normal respiratory effort, lungs clear to auscultation Cardiovascular: Rate/Rhythm: regular rate and regular rhythm Heart Sounds: + murmur Vessels: no JVD Extremities: normal capillary refill; no calf tenderness and no pedal edema Gastrointestinal (Abdomen): normal bowel sounds, soft, nontender, no hepatosplenomegaly Musculoskeletal: no cyanosis or clubbing, extremities motor strength 5/5 Skin: no rashes, warm and dry Neurologic: CN's II-XI intact bilaterally, moves all extremities and awake; no focal motor deficits and not confused Speech / Cognition: normal speech Motor/Sensory: no tremor, no pronator drift and no sensory deficit Cranial Nerves: PERRL, EOM intact bilaterally, normal facial strength, tongue midline, able to rotate head bilaterally, able to elevate shoulders bilaterally, no nystagmus and symmetric palate elevation Coordination: normal dyavdk-mo-heog test Psychiatric: A+Ox3, euthymic affect Genitourinary: no CVA tenderness Results & Data Results & Data Vital Signs (Past 12 Hours) Vital Signs Temp Pulse Resp BP Pulse Ox O2 Del Method O2 Flow Rate 03/27/23 16:31 57 L 19 197/85 H 96 03/27/23 15:00 56 L 19 190/85 H 96 03/27/23 14:00 54 L 18 189/85 H 97 03/27/23 13:53 52 L 03/27/23 13:46 95 Room Air 03/27/23 13:46 95 Room Air 0 03/27/23 13:52 36.5 C 55 L 18 199/82 H 95 Room Air Laboratory Results Abnormal lab results 03/27/23 03/27/23 03/27/23 Range/Units 13:55 13:55 17:05 [place] # (Auto) 0.97 H (0.11-0.59) K/uL Sodium 132 L (136-145) mmol/L Chloride 95 L (98-107) mmol/L Glucose 128 H (70-99(Fasting)) mg/dl Urine Ketones Trace H (Negative) Diagnostic Findings CT SCAN OF THE BRAIN WITHOUT IV CONTRAST CLINICAL HISTORY: Syncope. COMPARISON STUDY: CT of the brain dated 07/11/2022. TECHNIQUE: Unenhanced axial CT scan of the brain is performed from the vertex to the skull base. A dose lowering technique was utilized adhering to the principles of ALARA. CT DOSE: 625.80 mGy.cm FINDINGS: Brain parenchyma: There is age-related involutional change noting moderate subcortical and periventricular microangiopathic disease. There is no hemorrhage, mass effect, or evidence of acute territorial ischemia by CT criteria. A tiny chronic lacunar infarct is noted in the left thalamus. Fregoso-white matter differentiation is preserved. No extra-axial fluid collection is seen. Calcifications are noted along the midline falx. Ventricles, sulci, cisterns: Prominent secondary to involutional change. Intracranial vasculature: There is atherosclerotic calcification of the cavernous carotid arteries. Calvarium: Unremarkable. Sinuses and mastoids: There is moderate mucosal thickening within the right sphenoid sinus. Mild mucosal thickening is noted in the maxillary antra. There is trace mucosal thickening within the frontal and ethmoid sinuses. The mastoid air cells are well pneumatized. Orbits: The bony orbits are grossly intact. IMPRESSION: There is no hemorrhage, mass effect, or evidence of acute territorial ischemia by CT criteria. XR chest 1V portable HISTORY: seizure COMPARISON: Chest 01/08/2020. FINDINGS: No pneumothorax. No pleural effusions. There are low lung volumes. The heart remains enlarged. No new focal lung consolidations to suggest a pneumonia. No evidence for pulmonary edema. S-shaped scoliosis again noted. Prior thyroidectomy. IMPRESSION: Stable cardiomegaly. Otherwise, no acute process within the chest. Medications Administered ER medications Given: Normal Saline 500ml bolus ECG Rate (beats per minute): 53 Rhythm: sinus bradycardia Findings: + LBBB Comparison ECG Date: from (January 08, 2020) Change: the following changes noted (LBBB is now present) Code Status & VTE Plan Code Status Full VTE Prophylaxis Plan VTE Prophylaxis will be ordered: Yes PG Care Time/CCT Total # of Minutes Spent Total Time Spent with Patient: Total time spent is greater than 50% in coordination of care (as documented) at patient's floor/unit and/or counseling patient: Coding Level of Care Code 94017 INT INP/OBS CARE 3/75MIN Diagnoses Unresponsive episode R40.4 Labile hypertension R09.89 History of seizure Z87.898 Anxiety F41.9 Hypothyroidism E89.0 Hypothyroidism type: postoperative (5) Hypothyroidism Hypothyroidism type: postoperative Qualified Code(s): E89.0 - Postprocedural hypothyroidism
[2023-03-27] MEDS ORDERED: LORazepam 2 MG/1 ML VIAL IV STA (17:56)
[2023-03-27] MEDS ORDERED: GADOBUTROL 10ML VIAL IV ONE (18:40)
--- NOTE | 2023-03-27 20:20 | Magnetic Resonance Report ---
MRI OF THE BRAIN COMBO CLINICAL HISTORY: Seizure-like activity. COMPARISON STUDY: CT of the brain dated 03/27/2023. MRI of the brain dated 12/20/2011. TECHNIQUE: MRI of the brain was performed utilizing various T1 and T2-weighted sequences in the axial , sagittal, and coronal planes. Contrast-enhanced sequences were acquired following the administratio n of 8 cc of Gadavist. The examination is performed using the seizure protocol. FINDINGS: Brain parenchyma: There is age-related involutional change noting moderate to advanced subcortical an d periventricular microangiopathic disease. There are at least 2 tiny foci of hemosiderin deposition. These are likely chronic. There is no acute hemorrhage or mass effect. There is no restricted diffus ion to suggest acute ischemia. No enhancing mass lesion is identified on the postcontrast images. Gra y-white matter differentiation is preserved. No extra-axial fluid collection is seen. Calcifications are seen along the midline falx. The cerebellar tonsils are normal in configuration. Ventricles, sulci, and cisterns: Prominent secondary to involutional change. Pituitary and sella: Unremarkable. Intracranial vasculature: Normal flow voids are maintained at the skull base. Orbits: The bony orbits are grossly intact. Orbital contents are normal in appearance. Sinuses and mastoids: There is mild mucosal thickening within the maxillary and ethmoid sinuses. Mode rate mucosal thickening seen within the right sphenoid sinus. The mastoid air cells are clear. Calvarium: A 2.9 cm T1 hypointense focus in the right frontoparietal bone seen on axial image #16 is indeterminant and was also likely present in 2012. No corresponding lesion was seen on today's CT sca n and this is of low suspicion. Cervical cord: Partially visualized cervical spinal cord is normal in morphology and signal intensity . IMPRESSION: No acute intracranial abnormality is identified. See above. ACT 112: Negative or not required by law. Electronically signed by: Domingo Chaudhary M.D. 03/27/2023 8:17 PM
[2023-03-27] MEDS ORDERED: ACETAMINOPHEN 325 MG TAB PO PRN (20:48)
[2023-03-27] MEDS ORDERED: ALPRAZolam 0.5 MG TABLET PO PRN (20:48)
[2023-03-27] MEDS ORDERED: SIMVASTATIN 40 MG TAB PO SCH (21:00)
[2023-03-27] MEDS ORDERED: DULoxetine HCL 20 MG CAP PO SCH (21:00)
[2023-03-27] MEDS: hydrALAZINE TAB 50 MG TAB PO SCH (21:22)
[2023-03-27] MEDS: METOPROLOL TARTRATE 100 MG TAB PO SCH (21:23)
[2023-03-27] MEDS: FUROSEMIDE 20 MG TAB PO SCH (21:23)
[2023-03-27] MEDS: FLUTICASONE PROPIONATE NA SPR 16 GM BTL NAE SCH (21:25)
--- NOTE | 2023-03-27 23:00 | Ultrasound Report ---
ULTRASOUND OF THE CAROTID ARTERIES CLINICAL HISTORY: Syncope. COMPARISON STUDY: Carotid artery ultrasound dated 01/08/2020. TECHNIQUE: Real-time, grayscale, and color Doppler sonography of the carotid arteries is performed. I mages are reviewed in the transverse and longitudinal planes. FINDINGS: The carotid arteries are patent bilaterally and demonstrate antegrade flow. There is mild atheroscler otic plaque seen in the carotid bulbs. Normal doppler arterial waveforms are seen throughout. Velocit y measurements are listed below. Common carotid peak systolic velocity (cm/sec): RIGHT: 58 LEFT: 89 ICA proximal peak systolic velocity (cm/sec): RIGHT: 57 LEFT: 61 ICA mid peak systolic velocity (cm/sec): RIGHT: 55 LEFT: 45 ICA distal peak systolic velocity (cm/sec): RIGHT: 112 LEFT: 46 ICA/CC peak systolic ratio: RIGHT: 1.9 LEFT: 0.7 Antegrade flow was shown in the vertebral arteries. The external carotid arteries are patent. IMPRESSION: 1. There is no sonographic evidence of hemodynamically significant stenosis in the right or left lopez tid arterial system. 2. Antegrade flow is shown in the vertebral arteries. ACT 112: Negative or not required by law. Electronically signed by: Domingo Chaudhary M.D. 03/27/2023 10:59 PM
[2023-03-28] MEDS ORDERED: LEVOTHYROXINE SODIUM 125 MCG TABLET PO SCH (06:30)
[2023-03-28 06:58] LABS: Basophils # (auto) 0.03 K/uL (0.00-0.20); Basophils % (auto) 0.6 %; Eosinophils # (auto) 0.08 K/uL (0.00-0.50); Eosinophils % (auto) 1.6 %; Hematocrit (blood only) 37.6 % (37.0-47.0); Hemoglobin 13.1 g/dl (12.0-16.0); Immature Granulocytes # (auto) 0.01 K/uL (0.01-0.20); Immature Granulocytes % (auto) 0.2 %; Lymphocytes % (auto) 36.8 %; Mean Corpuscular Hemoglobin 30.5 pg (25.0-34.0); Mean Corpuscular Hgb Conc 34.8 g/dL (32.0-36.0); Mean Corpuscular Volume 87.4 fL (80.0-100.0); Mean Platelet Volume 9.6 fL (9.4-12.4); Monocytes # (auto) 0.54 K/uL (0.11-0.59); Neutrophils # (auto) 2.43 K/uL (1.40-6.50); Neutrophils % (auto) 49.8 %; Platelet Count 218 K/uL (130-400); RDW Coefficient of Variation 11.9 % (11.5-14.5); RDW Standard Deviation 38.1 fL (36.4-46.3); White Blood Count 4.89 K/ul (4.8-10.8)
[2023-03-28 07:17] LABS: BUN Creatinine Ratio 17.7 (10-20); Calcium 8.4 mg/dl (8.6-10.3); Creatinine Clr Calc Pharmacy 72.6 ml/min; Est GFR (African American) 100.8 ml/min
[2023-03-28] MEDS: hydrALAZINE TAB 50 MG TAB PO SCH ×2 (08:40→13:43)
[2023-03-28] MEDS: FLUTICASONE PROPIONATE NA SPR 16 GM BTL NAE SCH (08:41)
[2023-03-28] MEDS: FUROSEMIDE 20 MG TAB PO SCH ×2 (08:41→18:55)
[2023-03-28] MEDS: METOPROLOL TARTRATE 100 MG TAB PO SCH (08:42)
[2023-03-28] MEDS ORDERED: LOSARTAN POTASSIUM 50 MG TAB PO SCH (09:00)
[2023-03-28] MEDS ORDERED: CHOLECALCIFEROL 1,000 UNITS 25 MCG TAB PO SCH (09:00)
[2023-03-28] MEDS ORDERED: MULTIVITAMIN TAB PO SCH (09:00)
[2023-03-28] MEDS ORDERED: LORATADINE 10 MG TAB PO SCH (09:00)
[2023-03-28] MEDS ORDERED: ASPIRIN 325 MG ECTAB PO SCH (09:00)
[2023-03-28] MEDS ORDERED: ENOXAPARIN INJ 40 MG/0.4 ML SYR SQ SCH (09:15)
[2023-03-28 10:11] LABS: C Reactive Protein 6.42 mg/dl (0-0.5)
--- NOTE | 2023-03-28 11:25 | Electrocardiogram Report ---
Test Reason : Blood Pressure : / mmHG Vent. Rate : 053 BPM Atrial Rate : 053 BPM P-R Int : 192 ms QRS Dur : 146 ms QT Int : 536 ms P-R-T Axes : -26 035 203 degrees QTc Int : 502 ms Sinus bradycardia Left bundle branch block Abnormal ECG When compared with ECG of 08-JAN-2020 18:18, Left bundle branch block is now Present Confirmed by Henry Kelley ([id number]) on 03/28/2023 11:25:04 AM Referred By: REFERRED SELF Confirmed By:Henry Kelley
[2023-03-28 12:21] LABS: Adenovirus PCR Not Detected (NotDetected); Bordetella parapertussis PCR Not Detected (NotDetected); Bordetella pertussis PCR Not Detected (NotDetected); Chlamydia pneumoniae PCR Not Detected (NotDetected); Coronavirus 229E PCR Not Detected (NotDetected); Coronavirus CoV-2 (COVID19)PCR Not Detected (NotDetected); Coronavirus HKU1 PCR Not Detected (NotDetected); Coronavirus NL63 PCR Not Detected (NotDetected); Coronavirus OC43PCR Not Detected (NotDetected); Human Metapneumovirus PCR Not Detected (NotDetected); Influenza A PCR Not Detected (NotDetected); Influenza B PCR Not Detected (NotDetected); Mycoplasma pneumoniae PCR Not Detected (NotDetected); Parainfluenza Virus 1 PCR Not Detected (NotDetected); Parainfluenza Virus 2 PCR Not Detected (NotDetected); Parainfluenza Virus 3 PCR Not Detected (NotDetected); Parainfluenza Virus 4 PCR Not Detected (NotDetected); Respiratory Syncytial VirusPCR Not Detected (NotDetected)
[2023-03-28 12:23] LABS: Rhinovirus/Enterovirus PCR DETECTED (NotDetected)
--- NOTE | 2023-03-28 14:54 | Neurology Consultation ---
Date of Consultation March 28, 2023 Assessment & Plan (1) Unresponsive episode: Episode of loss of consciousness consistent with syncope. No specific concern for seizure. Agree she should stay on her carbamazepine at current dose. No further neurologic workup. Please contact us with any questions. Telehealth Consultation Telehealth Information Telehealth Information: I performed this visit using a real-time telehealth connection between my location and the patients location ([facility]). After connecting through interactive tele-video, patient was identified by name and date of and/or wristband check.Patient (or authorized healthcare customer development representative) was informed that this was a telemedicine visit and it was being conducted confidentially over secure lines. My office door was closed and no one else was present in the room with me.Patient (or authorized healthcare customer development representative) provided consent to proceed with the visit, expressed an understanding of privacy and security of the telemedicine visit, and gave permission to have a hospital customer development representative in the room in order to assist with the visit and to conduct portions of the visit, as needed. I informed the patient (or authorized healthcare customer development representative) that I reviewed their record and presented the opportunity for them to ask any questions regarding the visit today. The patient agreed to participate. History of Present Illness Reason for Consultation: Syncope Requesting Physician: Dr. Yost Attending Physician: Norberto Yost History of Present Illness Jossie Colón is a 78 yo F presenting with an episode of syncope witnessed by her family. She remembers feeling lightheaded not like her typical seizures where she has a asia vu episode. There was no significant shaking, she became cyanotic and had bradycardia with this episode. She has been taking her carbamazeine with no reported missed doses and no plan to stop despite being seizure free for 35 years. She otherwise feels well today. Allergies Allergy/AdvReac Type Severity Reaction Status Date / Time atorvastatin AdvReac Unknown CAN'T Verified 03/27/23 16:24 REMEMBER sertraline AdvReac Unknown CAN'T Verified 03/27/23 16:24 REMEMBER Home Medications Medication Instructions Recorded Confirmed Type aspirin 325 mg tablet 325 mg PO QAM 03/27/18 03/27/23 History cholecalciferol (vitamin D3) 50 4,000 unit PO QAM 03/27/18 03/27/23 History mcg (2,000 unit) capsule (Vitamin D3) multivitamin 1 tab PO QAM 03/27/18 03/27/23 History clonidine HCl 0.1 mg tablet 0.1 mg PO BID PRN hypertensive 07/22/20 03/27/23 Rx emergency #60 tabs simvastatin 40 mg tablet 40 mg PO HS #90 tabs 04/28/22 03/27/23 Rx metoprolol tartrate 100 mg tablet 150 mg PO BID #270 tabs 08/09/22 03/27/23 Rx carbamazepine 400 mg 400 mg PO BID #180 tabs 01/17/23 03/27/23 Rx tablet,extended release,12 hr fluticasone propionate 50 2 spray intranasal DAILY #16 grams 01/31/23 03/27/23 Rx mcg/actuation nasal spray,suspension alprazolam 0.5 mg tablet 0.5 mg PO HS PRN anxiety #90 tabs 02/01/23 03/27/23 Rx hydralazine 50 mg tablet 50 mg PO TID #270 tabs 03/16/23 03/27/23 Rx duloxetine 20 mg capsule,delayed 20 mg PO HS 03/27/23 03/27/23 History release furosemide 20 mg tablet 20 mg PO BID 03/27/23 03/27/23 History levothyroxine 125 mcg tablet 125 mcg PO DAILYBB 03/27/23 03/27/23 History loratadine 10 mg tablet 10 mg PO DAILY 03/27/23 03/27/23 History telmisartan 80 mg tablet 80 mg PO DAILY 03/27/23 03/27/23 History Patient History Medical History Allergic rhinitis Anxiety Aortic regurgitation Aortic stenosis Depression GERD (gastroesophageal reflux disease) History of rheumatic fever as a child History of vitamin D deficiency Hyperaldosteronism Hyperlipidemia Hypertension Hypothyroidism Mitral regurgitation Osteopenia Pancreatic cyst Seizure LAST 29 YEARS AGO SIADH (syndrome of inappropriate ADH production) Sleep apnea CPAP Stroke 6 YEARS AGO [facility] - RLE WEAKNESS - ON ASA - DOES NOT FOLLOW W/ NEUROLOGIST Surgical History H/O colonoscopy History of thyroidectomy History of tooth extraction History of total hysterectomy with bilateral salpingo-oophorectomy (BSO) History of tubal ligation Family History Sister Myocardial infarction Depression Stroke Hypertension Father Cardiac disorder Colon cancer Colorectal cancer Prostate cancer Brother Depression Hypertension Prostate cancer Mother Hypertension Coronary heart disease Other Heart disease No family history of adverse response to anesthesia No family history of bleeding disorder Denies family history of Ovarian cancer Breast cancer Social History Smoking Status: Never smoker Tobacco Type: Cigarettes Cigarettes Per Day: 5; Second Hand Exposure: No; Do You Dip or Chew Tobacco: No; Hx Alcohol Use: No Hx Substance Use: No Preferred Language: Cantonese Occitan Communication Ability: Effective Visual Impairment: No Limitations Hearing Ability: Use of Hearing Aid Health Service Worker Required: No Beliefs That Will Affect Care: None marital status: Current Living Situation: Spouse current occupational status: retired Feels Safe at Home: Yes Childhood Exposure to Second-Hand Smoke: No Diet: regular caffeine: Yes Dental Care, Regularly: Yes Physical Activity Frequency: Does not Exercise Seatbelt Use: always Sunscreen Use: Yes Assistive Devices: None Review of Systems + syncope Physical Exam Neurological Examination: Mental Status: Awake and alert. Oriented to person, place, and time. Fluent. Comprehension intact. Affect appropriate. Cranial Nerves: II:pupils 3/3 to 2/2 III/IV/: Versions intact without nystagmus, no gaze preference. VII: Facial expression symmetric VIII: Hearing intact to voice Motor: Strength was symmetric and antigravity throughout. There were no abnormal movements. Reflexes: Unable to assess over telemedicine Results & Data Vital Signs (Past 12 Hours) Vital Signs Temp Pulse Pulse Resp BP Pulse Ox O2 Del Method 03/28/23 11:44 37.2 C 54 L 18 154/77 H 92 Room Air 03/28/23 09:00 55 L 03/28/23 07:51 36.6 C 56 L 18 183/74 H 96 Room Air 03/28/23 03:26 37.1 C 50 L 16 164/77 H 97 Room Air Laboratory Results Abnormal lab results 03/27/23 03/27/23 03/28/23 Range/Units 17:05 19:04 00:23 Sodium (136-145) mmol/L Glucose (70-99(Fasting)) mg/dl Calcium (8.6-10.3) mg/dl Troponin I High Sens 17.6 H D 23.0 H (0-14) pg/ml C-Reactive Protein (0-0.5) mg/dl Urine Ketones Trace H (Negative) Entero/Rhino (PCR) (NotDetected) 03/28/23 03/28/23 03/28/23 Range/Units 06:34 06:34 10:30 Sodium 134 L (136-145) mmol/L Glucose 101 H (70-99(Fasting)) mg/dl Calcium 8.4 L (8.6-10.3) mg/dl Troponin I High Sens 21.2 H (0-14) pg/ml C-Reactive Protein 6.42 H (0-0.5) mg/dl Urine Ketones (Negative) Entero/Rhino (PCR) DETECTED A* (NotDetected) Diagnostic Findings Head CT 03/27/23 13:46 CT SCAN OF THE BRAIN WITHOUT IV CONTRAST CLINICAL HISTORY: Syncope. COMPARISON STUDY: CT of the brain dated 07/11/2022. TECHNIQUE: Unenhanced axial CT scan of the brain is performed from the vertex to the skull base. A dose lowering technique was utilized adhering to the principles of ALARA. CT DOSE: 625.80 mGy.cm FINDINGS: Brain parenchyma: There is age-related involutional change noting moderate subcortical and periventricular microangiopathic disease. There is no hemorrhage, mass effect, or evidence of acute territorial ischemia by CT criteria. A tiny chronic lacunar infarct is noted in the left thalamus. Fregoso- white matter differentiation is preserved. No extra-axial fluid collection is seen. Calcifications are noted along the midline falx. Ventricles, sulci, cisterns: Prominent secondary to involutional change. Intracranial vasculature: There is atherosclerotic calcification of the cavernous carotid arteries. Calvarium: Unremarkable. Sinuses and mastoids: There is moderate mucosal thickening within the right sphenoid sinus. Mild mucosal thickening is noted in the maxillary antra. There is trace mucosal thickening within the frontal and ethmoid sinuses. The mastoid air cells are well pneumatized. Orbits: The bony orbits are grossly intact. IMPRESSION: There is no hemorrhage, mass effect, or evidence of acute territorial ischemia by CT criteria. ACT 112: Negative or not required by law. Electronically signed by: Domingo Chaudhary M.D. 03/27/2023 2:53 PM Brain MRI 03/27/23 17:29 MRI OF THE BRAIN COMBO CLINICAL HISTORY: Seizure-like activity. COMPARISON STUDY: CT of the brain dated 03/27/2023. MRI of the brain dated 12/20/2011. TECHNIQUE: MRI of the brain was performed utilizing various T1 and T2-weighted sequences in the axial, sagittal, and coronal planes. Contrast-enhanced sequences were acquired following the administration of 8 cc of Gadavist. The examination is performed using the seizure protocol. FINDINGS: Brain parenchyma: There is age-related involutional change noting moderate to advanced subcortical and periventricular microangiopathic disease. There are at least 2 tiny foci of hemosiderin deposition. These are likely chronic. There is no acute hemorrhage or mass effect. There is no restricted diffusion to suggest acute ischemia. No enhancing mass lesion is identified on the postcontrast images. Fregoso-white matter differentiation is preserved. No extra-axial fluid collection is seen. Calcifications are seen along the midline falx. The cerebellar tonsils are normal in configuration. Ventricles, sulci, and cisterns: Prominent secondary to involutional change. Pituitary and sella: Unremarkable. Intracranial vasculature: Normal flow voids are maintained at the skull base. Orbits: The bony orbits are grossly intact. Orbital contents are normal in appearance. Sinuses and mastoids: There is mild mucosal thickening within the maxillary and ethmoid sinuses. Moderate mucosal thickening seen within the right sphenoid sinus. The mastoid air cells are clear. Calvarium: A 2.9 cm T1 hypointense focus in the right frontoparietal bone seen on axial image #16 is indeterminant and was also likely present in 2012. No corresponding lesion was seen on today's CT scan and this is of low suspicion. Cervical cord: Partially visualized cervical spinal cord is normal in morphology and signal intensity. IMPRESSION: No acute intracranial abnormality is identified. See above. ACT 112: Negative or not required by law. Electronically signed by: Domingo Chaudhary M.D. 03/27/2023 8:17 PM Carotid Doppler Study 03/27/23 20:48 ULTRASOUND OF THE CAROTID ARTERIES CLINICAL HISTORY: Syncope. COMPARISON STUDY: Carotid artery ultrasound dated 01/08/2020. TECHNIQUE: Real-time, grayscale, and color Doppler sonography of the carotid arteries is performed. Images are reviewed in the transverse and longitudinal planes. FINDINGS: The carotid arteries are patent bilaterally and demonstrate antegrade flow. There is mild atherosclerotic plaque seen in the carotid bulbs. Normal doppler arterial waveforms are seen throughout. Velocity measurements are listed below. Common carotid peak systolic velocity (cm/sec): RIGHT: 58 LEFT: 89 ICA proximal peak systolic velocity (cm/sec): RIGHT: 57 LEFT: 61 ICA mid peak systolic velocity (cm/sec): RIGHT: 55 LEFT: 45 ICA distal peak systolic velocity (cm/sec): RIGHT: 112 LEFT: 46 ICA/CC peak systolic ratio: RIGHT: 1.9 LEFT: 0.7 Antegrade flow was shown in the vertebral arteries. The external carotid arteries are patent. IMPRESSION: 1. There is no sonographic evidence of hemodynamically significant stenosis in the right or left carotid arterial system. 2. Antegrade flow is shown in the vertebral arteries. ACT 112: Negative or not required by law. Electronically signed by: Domingo Chaudhary M.D. 03/27/2023 10:59 PM
--- NOTE | 2023-03-28 16:08 | XCELERA ---
[id number] \\[id number]
--- NOTE | 2023-04-03 22:28 | Discharge Summary ---
Date of Service March 28, 2023 Admission HPI Per Admitting Provider Jossie Colón is a 78-year-old female with PMH of seizures, CVA (10 years ago), HLD, hypothyroidism, osteoporosis, anxiety, and multiple heart murmurs. She presents to the ED after an episode where she became unresponsive and reportedly had a seizure. She became bradycardic, recorded as low as 39 bpm per EMS and cyanosis of lips noted. Given 324 ASA COPRA SAMPLER. On exam, her , daughter, and granddaughter are present and provide additional history. Per , the patient became unresponsive for 6 minutes with head bobbing, tremors, and eye rolling; she then "snapped out of it", but was still somewhat unresponsive she reportedly went pale and was sweating at the time. ?Syncopal episode. No loss of continence. No drooling. No facial droop. No slurred speech following the event. Patient took all of her morning meds, including Tegretol which she takes as antiseizure ppx (no recent change dose change). She reports that her last seizure was 35 years ago; per , that seizure involved convulsions and looked much different than what happened today. Patient also had a stroke 10 years ago, but reports that it felt much different than what occurred today. Of note, the patient's hydralazine was increased from 25 --> 50mg 3 times daily in January. In regard to her high blood pressure, patient reports that she regularly runs high and that she suffers from white-coat syndrome and hospitals. Patient endorses recent sinus pressure, but denies fever, dizziness, lightheadedness, headache, chest pain, SOB, abdominal pain, blood in the urine/stool, or leg swelling. Notes a generalized macular papular rash that she normally gets when she is unwell and is self limiting. Principal Diagnosis problem 1 Discharge Exam Constitutional WD/WN, vitals as above Eyes PERRL, conjunctivae normal, anicteric sclerae ENMT external ear and nose normal, oropharynx normal Respiratory normal respiratory effort, lungs clear to auscultation Cardiovascular Rate/Rhythm: regular rate and regular rhythm Heart Sounds: + murmur Vessels: no JVD Extremities: normal capillary refill; no calf tenderness and no pedal edema Gastrointestinal (Abdomen) normal bowel sounds, soft, nontender, no hepatosplenomegaly Musculoskeletal no cyanosis or clubbing, extremities motor strength 5/5 Skin no rashes, warm and dry Neurologic CN's II-XI intact bilaterally, moves all extremities and awake; no focal motor deficits and not confused Speech / Cognition: normal speech Motor/Sensory: no tremor, no pronator drift and no sensory deficit Cranial Nerves: PERRL, EOM intact bilaterally, normal facial strength, tongue midline, able to rotate head bilaterally, able to elevate shoulders bilaterally, no nystagmus and symmetric palate elevation Coordination: normal [id number] test Psychiatric A+Ox3, euthymic affect Genitourinary no CVA tenderness Discharge Data Allergies Allergy/AdvReac Type Severity Reaction Status Date / Time atorvastatin AdvReac Unknown CAN'T Verified 03/27/23 16:24 REMEMBER sertraline AdvReac Unknown CAN'T Verified 03/27/23 16:24 REMEMBER Consultations 03/28/23 13:34 Consult Neurology Routine Ordered Studies 03/27/23 13:46 CT head/brain wo con Stat 03/27/23 17:29 MRI Brain [MR brain seizure wo/w con] Urgent 03/27/23 20:48 Carotid duplex [US carotid doppler BI] Routine Hospital Course (1) Unresponsive episode: Based on clinical picture of head-bobbing, eye rolling, and bradycardia, suspect syncope rather than seizure ?vasovagal in setting of recently increased anti-hypertensives, viral illness and valvular disease Given bradycardia noted by EMS consider reduction in metoprolol however will monitor on telemetry initially with her normal dose as long as HR > 60 New LBBB on EKG - low suspicion of ACS given lack of chest pain or shortness of breath, will continue to trend troponin Ordered TTE (last echo on 07/14/2022 with EF 45 to 50%), mild/mod , moderate MR ?progressed Carotid US ordered as occurred on head flexion However given concern for seizure-like activity will get: Head CT: NAF Ordered brain MRI with seizure protocol No role for prolactin level as stated by Neurologist. Appreciate input: Episode of loss of consciousness consistent with syncope. No specific concern for seizure. Agree she should stay on her carbamazepine at current dose. No further neurologic workup. (2) Labile hypertension: SBP 190s on admission Patient on multiple anti-HTN medications (hydralazine, metoprolol tartrate, telmisartan) and clonidine as needed Patient reportedly took all medications this morning g (3) History of seizure: Last reported seizure 35 years ago, but sounds like a full tonic-clonic seizure (not like today) On carbamazepine with no recent dose changes (4) Anxiety: Xanax as needed for anxiety (5) Hypothyroidism: Continue Synthroid Plan VTE prophylaxis Lovenox 40mg SQ daily Diet heart healthy Total Time Total Time Spent Total Time Spent (In Minutes): 42 Discharge Plan Discharge Items Patient Disposition: Home - Self-Care Reason For Visit: UNRESPONSIVE EPISODE Discharge Diagnosis: SYNCOPE Activity: Resume your previous activity Non-emergency contact: Primary Care Provider Call non-emergency contact if: you have any medication questions Follow-up/Referrals: David Bishop MD [Primary Care Provider] - (Call Dr. Bishop's office and make follow up appointment.) Diet: Heart Healthy Addtl Attending Provider Instructions: Recommend followup with PCP in 1-2 weeks Pending Studies at Discharge: No Stand-Alone Forms: My GutCheck, Smoking Cessation Medications and DC Order Prescriptions: Continued simvastatin 40 mg tablet 40 mg PO HS Qty: 90 3RF metoprolol tartrate 100 mg tablet 150 mg PO BID Qty: 270 3RF carbamazepine 400 mg tablet extended release 12 hr 400 mg PO BID Qty: 180 3RF alprazolam 0.5 mg tablet 0.5 mg PO HS PRN (Reason: anxiety) Qty: 90 0RF clonidine HCl 0.1 mg tablet 0.1 mg PO BID PRN (Reason: hypertensive emergency) Qty: 60 2RF Rx Instructions: Take up to 2 pills a day as needed for elevated BP (>180 mm Hg) fluticasone propionate 50 mcg/actuation spray,suspension 2 spray intranasal DAILY Qty: 16 2RF Rx Instructions: administer into each nostril hydralazine 50 mg tablet 50 mg PO TID Qty: 270 3RF multivitamin Tablet 1 tab PO QAM aspirin 325 mg Tablet 325 mg PO QAM cholecalciferol (vitamin D3) [Vitamin D3] 2,000 unit Capsule 4,000 unit PO QAM levothyroxine 125 mcg tablet 125 mcg PO DAILYBB telmisartan 80 mg tablet 80 mg PO DAILY Rx Instructions: TAKE 1 TABLET EVERY MORNING furosemide 20 mg tablet 20 mg PO BID Rx Instructions: TAKE 1 TABLET TWICE A DAY loratadine 10 mg tablet 10 mg PO DAILY Rx Instructions: TAKE 1 TABLET BY MOUTH EVERY DAY duloxetine 20 mg capsule,delayed release(DR/EC) 20 mg PO HS Rx Instructions: TAKE 1 CAPSULE AT BEDTIME No Action doxycycline hyclate 100 mg tablet 100 mg PO BID Qty: 14 0RF Discharge Orders: Discharge Order (Routine); Ordered 03/28/23 Ordered By: Norberto Yost Admission Data Admit Date/Time: 03/27/23 17:35 Attending Provider: Norberto Yost Admit Provider: Dawson Nicholas Primary Care Provider: David Bishop Other Providers: Harry Sauceda Other Interventions: Discharge Summary Assessment (RN) Last Done: 03/28/23 17:55 Coding Level of Care Code 44671 INP/OBS DISCH >30 MIN Diagnoses Unresponsive episode R40.4 Labile hypertension R09.89 History of seizure Z87.898 Anxiety F41.9 Hypothyroidism E89.0 Hypothyroidism type: postoperative
--- NOTE | 2023-05-09 13:17 | Coding Query ---
A supporting diagnosis is required for the test/procedure performed on this patient in order for us to be reimbursed by the patient's insurance. Please provide a supporting diagnosis for the following test/procedure listed below next to the test name along with your signature. *If there is no additional diagnosis for this patient that would support the following test/procedure please document that below next to the test/procedure. Test(s)/Procedure(s) that require a supporting diagnosis: Carotid Doppler Study DIAGNOSIS: Syncopal episode on twisting head movement Provider Signature: Date: Thank you Mary Morrow [facility] Information Management Once completed, please kindly fax back to [phone] For questions please call [phone] [facility]
== END 2023-03-28 18:56 | disposition home or self-care (01) ==
LOC: ED 13:39 → 4W 13:39 → SUATTDRO 17:35 → 4W 19:55

== ENCOUNTER 2024-08-14 20:41 | Inpatient (IN) ==
--- NOTE | 2024-08-14 21:19 | Emergency Department Note ---
Impression & Plan Acute dyspnea Admission ED Provider Note HPI: History obtained from patient. The patient is a 79-year-old female with history of mitral valve regurgitation, aortic valve stenosis, who presents the emergency department with a chief complaint of shortness of breath and cough. Patient states that her symptoms have been ongoing for the past 5 days. Patient states that her cough has been worsening to the point where she is feeling short of breath today. Patient denies any chest pain. On arrival here to the ED the patient is tachypneic, she is saturating well on room air, she is hypertensive on arrival at 153/80. ROS: - Per HPI Differential Diagnosis: Viral upper respiratory infection to include COVID-19, influenza A, pneumonia, acute CHF exacerbation, acute bronchospasm/COPD, ACS, amongst other potential pathologies. *Outpatient medications and allergy history reviewed. PE: General: Alert HEENT: Normocephalic, trachea midline Eyes: Extraocular eye movement is intact, no scleral erythema Pulmonary: Tachypnea noted with coarse bilateral breath sounds and mild end expiratory wheezing Cardio: Tachycardic rate with regular rhythm GI: Abdomen is soft to palpation : No suprapubic tenderness MSK: No evidence of trauma or malformation of the extremities, no edema Skin: No evidence of rash Neuro: Alert, no focal deficits Psychiatric: Cooperative INDEPENDENT INTERPRETATIONS: manager monitoring: (As interpreted by myself): - An order was placed for continuous cardiac monitoring - Patient was noted to be in sinus rhythm with a rate of 110 EKG: (As interpreted by myself): Rate: 97 Rhythm: Sinus rhythm Intervals: QRS 142 ms, QTc 510 ms, otherwise within normal limits ST changes: No ST elevation Time: 2104 Chest x-ray: (As interpreted by myself): Prominent interstitial markings with CHF pattern Interventions provided in ED: -BiPAP, DuoNeb breathing treatment x 2 Medical Decision Making: IV was established and lab work obtained, patient was placed on potline monitor. Lab work shows no leukocytosis, hemoglobin is normal, platelet count is normal, CMP does not show any evidence of any critical findings aside from a mild hypokalemia at 3.0 which was ordered for IV repletion. Troponin is elevated at 45.6, BNP is 1389. Chest x-ray suggestive of fluid overload, will hold off on diuresis at this time given the patient's aortic stenosis history in addition to hypokalemia. Patient was initially given DuoNeb breathing treatment x 2 if she did have some mild wheezing. She still remained tachypneic and therefore she was placed on BiPAP with good improvement in her work of breathing and heart rate. Patient's viral panel testing did return positive for human metapneumovirus. On my reassessment the patient appears better on BiPAP. I suspect that her symptoms are likely mixed in relation to viral upper respiratory infection as well as CHF exacerbation with elevated BNP. Patient will require admission, patient was in agreement to this plan, [facility] hospitalist service was consulted for admission and the patient was placed for admission in stable condition. Consultants/Discussions held with other healthcare providers: -Hospitalist, Dr. Chand Disposition discussion held by myself with: -Patient Diagnosis: 1. Dyspnea, acute 2. High-sensitivity troponin elevation, acute 3. Elevated BNP, acute 4. CHF exacerbation, acute 5. Human metapneumovirus infection, acute Disposition: Admission Inocencio Sterling DO Emergency Medicine Past Med/Surg History Problem List (Updated 08/14/24 @ 23:28 by Inocencio Sterling DO) Acute dyspnea (Acute) Moderate to severe aortic stenosis Episode of syncope (03/2023) Labile hypertension Bradycardia (Acute) Complete left bundle branch block (LBBB) (Acute) Palpitations Sleep apnea CPAP Hyperlipidemia Hypertension History of rheumatic fever as a child Depression Anxiety Hypothyroidism Aortic regurgitation Pre-diabetes (Acute) Osteoporosis (Acute) Mitral regurgitation (Acute) Low serum renin (Acute) Leukopenia (Acute) Kidney lesion, [place], right (Acute) IPMN (intraductal papillary mucinous neoplasm) (Acute) History of stroke (Acute) Left internal capsule CVA December 2011. Herpes simplex type 1 infection (Acute) Carotid artery plaque (Acute) SIADH (syndrome of inappropriate ADH production) ILDEFONSO positive Seasonal allergies Elevated troponin (Acute) DVT prophylaxis Right sided weakness Balance problems History of vitamin D deficiency Pes planus Valgus deformity of foot Left knee DJD Moderate mitral regurgitation Allergic rhinitis History of seizure Medical History Hyperaldosteronism Mitral regurgitation Aortic stenosis Osteopenia GERD (gastroesophageal reflux disease) Seizure Stroke Surgical History History of total hysterectomy with bilateral salpingo-oophorectomy (BSO) H/O colonoscopy History of tooth extraction History of tubal ligation History of thyroidectomy Family History Sister Myocardial infarction Depression Stroke Hypertension Father Cardiac disorder Colon cancer Colorectal cancer Prostate cancer Brother Depression Hypertension Prostate cancer Mother Hypertension Coronary heart disease Other Heart disease No family history of adverse response to anesthesia No family history of bleeding disorder Denies family history of Ovarian cancer Breast cancer Social History Smoking Status: Former smoker Tobacco Type: Cigarettes Age Started Using Tobacco: 26; Age Quit Using Tobacco: 29; packs per day: 0.25; Cigarettes Per Day: 5; Second Hand Exposure: No; Do You Dip or Chew Tobacco: No; Hx Alcohol Use: No Hx Substance Use: No Preferred Language: Turkish Communication Ability: Effective Visual Impairment: No Limitations Hearing Ability: Use of Hearing Aid Energy Professional Required: No Beliefs That Will Affect Care: None marital status: Current Living Situation: Spouse current occupational status: retired Feels Safe at Home: Yes Childhood Exposure to Second-Hand Smoke: No Diet: regular caffeine: Yes Dental Care, Regularly: Yes Physical Activity Frequency: Does not Exercise Seatbelt Use: always Sunscreen Use: Yes Assistive Devices: Glasses and Hearing Aid - Bilateral Allergies Allergies Allergy/AdvReac Type Severity Reaction Status Date / Time atorvastatin AdvReac Unknown CAN'T Verified 08/14/24 12:16 REMEMBER sertraline AdvReac Unknown CAN'T Verified 08/14/24 12:16 REMEMBER Home Meds Home Medications Medication Instructions Recorded Confirmed aspirin 325 mg tablet 325 mg PO QAM 03/27/18 08/14/24 multivitamin 1 tab PO QAM 03/27/18 08/14/24 loratadine 10 mg tablet 10 mg PO QAM 03/27/23 08/14/24 fluticasone propionate 50 2 spray intranasal AMPM 06/08/23 08/14/24 mcg/actuation nasal spray,suspension cholecalciferol (vitamin D3) 50 2,000 unit PO QAM 06/20/23 08/14/24 mcg (2,000 unit) capsule (Vitamin D3) ascorbic acid (vitamin C) 125 mg 125 mg PO QAM 08/25/23 08/14/24 chewable tablet furosemide 20 mg tablet 40 mg PO QAM 05/10/24 08/14/24 levothyroxine 112 mcg tablet 112 mcg PO DAILYBB 08/14/24 08/14/24 rosuvastatin 20 mg tablet 20 mg PO HS 08/14/24 08/14/24 telmisartan 80 mg tablet 80 mg PO QAM 08/14/24 08/14/24 Previous Rx's Medication Instructions Recorded alendronate 70 mg tablet 70 mg PO Q7D #12 tabs 06/22/23 metoprolol tartrate 100 mg tablet 100 mg PO BID #180 tabs 08/02/23 carbamazepine 400 mg 400 mg PO BID #180 tabs 01/10/24 tablet,extended release,12 hr duloxetine 20 mg capsule,delayed 20 mg PO HS #90 caps 02/20/24 release hydralazine 50 mg tablet 50 mg PO TID #270 tabs 03/05/24 alprazolam 0.5 mg tablet 0.5 mg PO HS PRN anxiety #90 tabs 05/21/24 doxycycline hyclate 100 mg capsule 100 mg PO BID 7 days #14 caps 08/13/24 Results & Data (ED) Vital Signs Vital Signs - 24 hr 08/14/24 20:47 08/14/24 21:01 08/14/24 21:07 Temperature 36.6 C Temperature Source Oral Pulse Rate 102 H 101 H 96 H Pulse Rate [Finger] Pulse Rhythm Regular Regular Pulse Rhythm [Finger] Pulse Strength Normal Pulse Strength [Finger] Respiratory Rate 18 26 H Respiratory Effort / Characteristics Non-Labored Spontaneous Respiratory Depth Normal Respiratory Pattern Regular Blood Pressure 194/104 H Blood Pressure [Left Arm] Blood Pressure Mean 134 Blood Pressure Mean [Left Arm] Blood Pressure Position Sitting Blood Pressure Position [Left Arm] Pulse Oximetry 92 92 Oxygen Delivery Method Room Air Room Air Fraction of Inspired Oxygen Sepsis Recent Fever Within 48 Hours No Sepsis New/Unexplained Change in Mental Status N/A Sepsis Action Taken by Nursing No Action Required 08/14/24 21:07 08/14/24 21:07 08/14/24 21:07 Temperature Temperature Source Pulse Rate Pulse Rate [Finger] 93 H Pulse Rhythm Pulse Rhythm [Finger] Regular Pulse Strength Pulse Strength [Finger] Normal Respiratory Rate 26 H Respiratory Effort / Characteristics Spontaneous Accessory Muscle Use Labored Non-Labored Spontaneous Respiratory Depth Normal Respiratory Pattern Regular Blood Pressure Blood Pressure [Left Arm] 209/137 H Blood Pressure Mean Blood Pressure Mean [Left Arm] 161 Blood Pressure Position Blood Pressure Position [Left Arm] Sitting Pulse Oximetry 94 Oxygen Delivery Method Room Air Room Air Room Air Fraction of Inspired Oxygen Sepsis Recent Fever Within 48 Hours Sepsis New/Unexplained Change in Mental Status Sepsis Action Taken by Nursing 08/14/24 22:55 08/14/24 23:00 Temperature Temperature Source Pulse Rate 112 H Pulse Rate [Finger] 110 H Pulse Rhythm Pulse Rhythm [Finger] Regular Pulse Strength Pulse Strength [Finger] Normal Respiratory Rate 28 H 25 H Respiratory Effort / Characteristics Spontaneous Short of Breath Spontaneous Respiratory Depth Normal Normal Respiratory Pattern Tachypnea Regular Blood Pressure Blood Pressure [Left Arm] 168/96 H Blood Pressure Mean Blood Pressure Mean [Left Arm] 120 Blood Pressure Position Blood Pressure Position [Left Arm] Lying Pulse Oximetry 94 95 Oxygen Delivery Method BiPAP Fraction of Inspired Oxygen 21 Sepsis Recent Fever Within 48 Hours Sepsis New/Unexplained Change in Mental Status Sepsis Action Taken by Nursing Laboratory Data 08/14/24 21:03 08/14/24 21:03 Lab Results 08/14/24 08/14/24 08/14/24 Range/Units 21:03 21:25 21:30 WBC 6.78 (4.8-10.8) K/ul RBC 4.80 (4.20-5.40) M/uL Hgb 14.7 (12.0-16.0) g/dl Hct 41.2 (37.0-47.0) % MCV 85.8 (80.0-100.0) fL MCH 30.6 (25.0-34.0) pg MCHC 35.7 (32.0-36.0) g/dL RDW Std Deviation 36.3 L (36.4-46.3) fL RDW Coeff of Luis 11.5 (11.5-14.5) % Plt Count 210 (130-400) K/uL MPV 10.0 (9.4-12.4) fL Immature Gran % (Auto) 0.3 % Neut % (Auto) 59.1 % Lymph % (Auto) 28.9 % Peach % (Auto) 10.0 % Eos % (Auto) 1.3 % Baso % (Auto) 0.4 % Neut # (Auto) 4.00 (1.40-6.50) K/uL Lymph # (Auto) 1.96 (1.20-3.40) K/uL Peach # (Auto) 0.68 H (0.11-0.59) K/uL Eos # (Auto) 0.09 (0.00-0.50) K/uL Baso # (Auto) 0.03 (0.00-0.20) K/uL Immature Gran # (Auto) 0.02 (0.01-0.20) K/uL PT 10.8 (9.0-12.0) Seconds INR 1.0 (0.9-1.1) VBG pH 7.41 (7.36-7.41) VBG pCO2 37 L (38-50) mmHg VBG pO2 41 mmHg VBG HCO3 24 mmol/L VBG O2 Saturation 67.7 % VBG Base Excess -0.8 mEq/L Sodium 133 L (136-145) mmol/L Potassium 3.0 L (3.5-5.1) mmol/L Chloride 95 L (98-107) mmol/L Carbon Dioxide 27 (21-32) mmol/L Anion Gap 11 (3-11) BUN 11 (6-23) mg/dl Creatinine 0.73 (0.6-1.2) mg/dl Est Cr Clr Drug Dosing Not Reportable eGFR 84.12 BUN/Creatinine Ratio 15.1 (10-20) Glucose 124 H (70-99(Fasting)) mg/dl Calcium 8.6 (8.6-10.3) mg/dl Total Bilirubin 0.4 (0.2-1.0) mg/dl AST 24 (13-39) U/L ALT 13 (7-52) U/L Alkaline Phosphatase 66 (34-104) U/L Troponin I High Sens 45.6 H (0-14) pg/ml B-Natriuretic Peptide 1389 H (0-100) pg/ml Total Protein 7.7 (6.0-8.3) gm/dl Albumin 4.4 (3.4-5.0) gm/dl Globulin 3.3 (2.5-4.0) gm/dl Albumin/Globulin Ratio 1.3 (0.9-2) Adenovirus (PCR) Not Detected (NotDetected) B. pertussis DNA (PCR) Not Detected (NotDetected) B.parapertussis DNA PCR Not Detected (NotDetected) C. pneumoniae DNA (PCR) Not Detected (NotDetected) Coronavirus OC43 (PCR) Not Detected (NotDetected) Coronavirus HKU1 (PCR) Not Detected (NotDetected) Coronavirus 229E (PCR) Not Detected (NotDetected) SARS-CoV-2 (PCR) Not Detected (NotDetected) Coronavirus NL63 (PCR) Not Detected (NotDetected) Human Metapneumovir PCR DETECTED A (NotDetected) Influenza Type A (PCR) Not Detected (NotDetected) Influenza Type B (PCR) Not Detected (NotDetected) M. pneumoniae (PCR) Not Detected (NotDetected) Parainfluenza 1 (PCR) Not Detected (NotDetected) Parainfluenza 2 (PCR) Not Detected (NotDetected) Parainfluenza 3 (PCR) Not Detected (NotDetected) Parainfluenza 4 (PCR) Not Detected (NotDetected) RSV (PCR) Not Detected (NotDetected) Entero/Rhino (PCR) Not Detected (NotDetected) Administered Medications Potassium Chloride 40 meq/ (Sodium Chloride) 1,020 mls @ 100 mls/hr IV .[id number] KAIT Stop: 08/15/24 22:44 Last Admin: 08/14/24 23:21 Dose: 100 mls/hr Documented By: MARCELA Discontinued Medications Albuterol (Albut/Ipratrop 3mg/0.5mg Neb 3 Ml Vial) 3 ml NEB NOW STA; Protocol Stop: 08/14/24 21:17 Last Admin: 08/14/24 21:22 Dose: 3 ml Documented By: MARCELA Albuterol (Albut/Ipratrop 3mg/0.5mg Neb 3 Ml Vial) 3 ml NEB NOW STA; Protocol Stop: 08/14/24 21:36 Last Admin: 08/14/24 21:37 Dose: 3 ml Documented By: MARCELA Imaging Data Radiologist's Impression: Chest X-Ray 08/14/24 21:07 Exam(s): XR CXR 1 VIEW EXAM: XR Chest, 1 View CLINICAL HISTORY: Reason for exam: Dyspnea. TECHNIQUE: Frontal view of the chest. COMPARISON: 02/24/2023. FINDINGS: Lungs: There is prominence of the interstitial markings.. No consolidation. Pleural space: No pleural effusion is seen.. No pneumothorax. Heart: Heart is top normal in size.. Mediastinum: Unremarkable. Bones/joints: There is a scoliosis of the spine with degenerative changes.. IMPRESSION: There is prominence of the interstitial markings which appears similar to previous exam and may be chronic in nature.. Electronically signed by: Charlie George MD 08/14/24 23:22 PM Discharge Plan Visit Data Chief Complaint: Shortness of Breath/Dyspnea Stated Complaint: SOB, ED Provider: Inocencio Sterling Discharge Problem: Acute dyspnea Forms Stand Alone Forms: [facility] [employer] Prescriptions Prescriptions: No Action cholecalciferol (vitamin D3) [Vitamin D3] 50 mcg (2,000 unit) capsule 2,000 unit PO QAM alendronate 70 mg tablet 70 mg PO Q7D Qty: 12 3RF Rx Instructions: Take medication on empty stomach and then sit upright for 30 minutes mondays metoprolol tartrate 100 mg tablet 100 mg PO BID Qty: 180 3RF carbamazepine 400 mg tablet extended release 12 hr 400 mg PO BID Qty: 180 3RF duloxetine 20 mg capsule,delayed release(DR/EC) 20 mg PO HS Qty: 90 3RF Rx Instructions: TAKE 1 CAPSULE AT BEDTIME hydralazine 50 mg tablet 50 mg PO TID Qty: 270 3RF alprazolam 0.5 mg tablet 0.5 mg PO HS PRN (Reason: anxiety) Qty: 90 0RF ascorbic acid (vitamin C) 125 mg tablet,chewable 125 mg PO QAM fluticasone propionate 50 mcg/actuation spray,suspension 2 spray intranasal AMPM Rx Instructions: administer into each nostril doxycycline hyclate 100 mg capsule 100 mg PO BID 7 Days Qty: 14 0RF furosemide 20 mg tablet 40 mg PO QAM multivitamin Tablet 1 tab PO QAM aspirin 325 mg Tablet 325 mg PO QAM loratadine 10 mg tablet 10 mg PO QAM Rx Instructions: TAKE 1 TABLET BY MOUTH EVERY DAY telmisartan 80 mg tablet 80 mg PO QAM Rx Instructions: TAKE 1 TABLET EVERY MORNING levothyroxine 112 mcg tablet 112 mcg PO DAILYBB rosuvastatin 20 mg tablet 20 mg PO HS Referrals Referrals: David Bishop MD [Primary Care Provider] -
[2024-08-14] MEDS: ALBUT/IPRATROP 3MG/0.5MG NEB 3 ML VIAL NEB STA ×2 (21:22→21:37)
[2024-08-14 21:33] LABS: Base Excess VBG -0.8 mEq/L; HCO3 VBG 24 mmol/L; Oxygen Saturation VBG 67.7 %; PCO2 VBG 37 mmHg (38-50); PO2 VBG 41 mmHg; pH VBG 7.41 (7.36-7.41)
[2024-08-14 21:34] LABS: Alanine Aminotransferase 13 U/L (7-52); Albumin Globulin Ratio 1.3 (0.9-2); Albumin Level 4.4 gm/dl (3.4-5.0); Alkaline Phosphatase 66 U/L (34-104); Anion Gap 11 (3-11); Aspartate Aminotransferase 24 U/L (13-39); BUN Creatinine Ratio 15.1 (10-20); Bilirubin,Total 0.4 mg/dl (0.2-1.0); Blood Urea Nitrogen 11 mg/dl (6-23); Calcium 8.6 mg/dl (8.6-10.3); Carbon Dioxide 27 mmol/L (21-32); Chloride 95 mmol/L (98-107); Globulin 3.3 gm/dl (2.5-4.0); Glucose 124 mg/dl (70-99(Fasting)); Sodium 133 mmol/L (136-145); Total Protein 7.7 gm/dl (6.0-8.3)
[2024-08-14 21:41] LABS: Troponin I High Sensitivity 45.6 pg/ml (0-14)
[2024-08-14 21:43] LABS: Basophils # (auto) 0.03 K/uL (0.00-0.20); Basophils % (auto) 0.4 %; Eosinophils # (auto) 0.09 K/uL (0.00-0.50); Eosinophils % (auto) 1.3 %; Hematocrit (blood only) 41.2 % (37.0-47.0); Hemoglobin 14.7 g/dl (12.0-16.0); Immature Granulocytes # (auto) 0.02 K/uL (0.01-0.20); Immature Granulocytes % (auto) 0.3 %; Lymphocytes # (auto) 1.96 K/uL (1.20-3.40); Lymphocytes % (auto) 28.9 %; Mean Corpuscular Hemoglobin 30.6 pg (25.0-34.0); Mean Corpuscular Hgb Conc 35.7 g/dL (32.0-36.0); Mean Corpuscular Volume 85.8 fL (80.0-100.0); Monocytes # (auto) 0.68 K/uL (0.11-0.59); Neutrophils % (auto) 59.1 %; Platelet Count 210 K/uL (130-400); RDW Coefficient of Variation 11.5 % (11.5-14.5); RDW Standard Deviation 36.3 fL (36.4-46.3); White Blood Count 6.78 K/ul (4.8-10.8)
[2024-08-14 21:46] LABS: Prothrombin Time 10.8 Seconds (9.0-12.0)
[2024-08-14 22:28] LABS: Adenovirus PCR Not Detected (NotDetected); Bordetella parapertussis PCR Not Detected (NotDetected); Bordetella pertussis PCR Not Detected (NotDetected); Chlamydia pneumoniae PCR Not Detected (NotDetected); Coronavirus 229E PCR Not Detected (NotDetected); Coronavirus CoV-2 (COVID19)PCR Not Detected (NotDetected); Coronavirus HKU1 PCR Not Detected (NotDetected); Coronavirus NL63 PCR Not Detected (NotDetected); Coronavirus OC43PCR Not Detected (NotDetected); Human Metapneumovirus PCR DETECTED (NotDetected); Influenza A PCR Not Detected (NotDetected); Influenza B PCR Not Detected (NotDetected); Mycoplasma pneumoniae PCR Not Detected (NotDetected); Parainfluenza Virus 1 PCR Not Detected (NotDetected); Parainfluenza Virus 2 PCR Not Detected (NotDetected); Parainfluenza Virus 3 PCR Not Detected (NotDetected); Parainfluenza Virus 4 PCR Not Detected (NotDetected); Respiratory Syncytial VirusPCR Not Detected (NotDetected); Rhinovirus/Enterovirus PCR Not Detected (NotDetected)
--- NOTE | 2024-08-14 23:06 | History & Physical Report ---
Date of Service August 14, 2024 Assessment & Plan (1) Infection due to human metapneumovirus (hMPV): (2) Acute dyspnea: (3) Tachycardia: (4) Hypertension: (5) Elevated troponin: (6) Hypokalemia: (7) Hypomagnesemia: (8) Hyponatremia: Plan Patient is a 79-year-old female with a past medical history of GALINA on CPAP, seizure disorder, aortic stenosis, mitral regurgitation, hypertension, hypothyroidism, IPMN, depression, SIADH. She presents today due to rhinorrhea, cough, and dyspnea. She was started on doxycycline by her PCP that she took 2 doses of 08/14. She tested positive for human metapneumovirus in ED. She is being admitted for tachypnea, elevated troponin, and electrolyte abnormalities. #Human metapneumovirus Positive for human metapneumovirus on admitting [facility] Rhinorrhea, cough, yellow mucus production, and dyspnea Afebrile, no leukocytosis - not septic on admission CXR negative for acute changes Supportive care with IVF, Tessalon Perle, Mucinex, Tylenol, DuoNeb as needed, incentive spirometry started on doxycycline by PCP, will discontinue as no bacterial origin, no PNA on CXR, not immunocompromised #Dyspnea/tachypnea Labored breathing and tachypneic in ED Started on BiPAP in ED which was titrated off on admission due to improvement of symptoms BNP elevated to 1389 - CXR showed interstitial markings which appear similar to previous and may be chronic - Patient clinically dry, BNP may be elevated due to acute infection VBG WNL 7.41/37/24 echo 03/2023 showed EF 50 to 55%, mod/severe aortic stenosis, trace aortic regurg Will repeat echo in a.m. #tachycardia/hypertension BP 209/237 in ED HR as high as 119 Patient missed 2 doses of home hydralazine; 1 dose ordered on admission Patient missed evening metoprolol; ordered on admission Continue home hydralazine, metoprolol, ARB #elevated troponin Suspect 2/2 demand with requiring BiPAP and electrolyte depletion 45.6 -> 104.7 Patient denies chest pain, denies chest pain on exertion EKG showed PVCs but much artifact due to labored breathing; repeat EKG ordered after weaned off BiPAP, has yet to be completed trend troponin Q6H Monitor on telemetry #hypokalemia/hypomagnesia suspect secondary to decreased p.o. intake with acute infection K+ 3.0 -> 40 meq Po + 40 meq in 1020 NSS at 100 mls/hr Mg 1.8 -> 1G IV ordered hold Lasix trend BMP and Mg #Hyponatremia History of SIADH Sodium at baseline NA 130 Patient remains on loop diuretic but no salt tablets at home Holding Lasix Chronic stable diagnoses: anxiety/Depressioncontinue alprazolam as needed, Duloxetine Seizure disordercontinue carbamazepine hypothyroidismcontinue levothyroxine HLDcontinue statin and aspirin OSACPAP at bedtime IPMNmonitored by PCP VTE ppx: SCDs - low risk Diet: heart healthy Dispo: med/tele Admission and Anticipated Discharge Date Admission Date: 08/14/24 History of Present Illness Chief Complaint: dyspnea Primary Care Provider: David Bishop MD Patient is a 79-year-old female with a past medical history of GALINA on CPAP, seizure disorder, aortic stenosis, mitral regurgitation, hypertension, hypothyroidism, IPMN, depression, SIADH. She presents today due to rhinorrhea, cough, and dyspnea. She was started on doxycycline by her PCP that she took 2 doses of 08/14. She tested positive for human metapneumovirus in ED. She is being admitted for tachypnea, elevated troponin, and electrolyte abnormalities. Patient seen at bedside with her present. She stated that on she began with rhinorrhea and a cough. She has had yellow sputum production. She also endorses dizziness and lightheadedness. She stated that mid afternoon today she developed labored breathing so she presented to the ED. She went to her PCP yesterday tested for COVID, was started on doxycycline which she took 2 doses of 08/14. No covid result on file however negative for influenza. She also endorses decreased appetite for the past few days. Patient denies fever, chills, sore throat, chest pain, abdominal pain, nausea, vomiting, diarrhea, edema. She denies known sick contacts however her also has similar symptoms that began around the same time. she stated the DuoNebs did not seem to provide much relief however the BiPAP did. Regarding her elevated troponin, she denies chest pain. She stated she never has chest pain on exertion. She does not very active, she does not exercise. She does not use nicotine products or drink alcohol. She denies past history of cancer, DM, previous VTE. She does not use oxygen at baseline but does use CPAP at night for sleep apnea. She did take her a.m. home medications but missed her afternoon and p.m. doses of hydralazine and metoprolol. she is tachycardic with pulse of 110 and BP elevated at 168/96 on admission. Ordered home medications. She stated she is feeling much better after being put on BiPAP. Nursing to reach out to respiratory therapy to trial off BiPAP. Allergies Allergy/AdvReac Type Severity Reaction Status Date / Time atorvastatin AdvReac Unknown CAN'T Verified 08/14/24 12:16 REMEMBER sertraline AdvReac Unknown CAN'T Verified 08/14/24 12:16 REMEMBER Home Medications Medication Instructions Recorded Confirmed Type aspirin 325 mg tablet 325 mg PO QAM 03/27/18 08/14/24 History multivitamin 1 tab PO QAM 03/27/18 08/14/24 History loratadine 10 mg tablet 10 mg PO QAM 03/27/23 08/14/24 History fluticasone propionate 50 2 spray intranasal AMPM 06/08/23 08/14/24 History mcg/actuation nasal spray,suspension cholecalciferol (vitamin D3) 50 2,000 unit PO QAM 06/20/23 08/14/24 History mcg (2,000 unit) capsule (Vitamin D3) alendronate 70 mg tablet 70 mg PO Q7D #12 tabs 06/22/23 08/14/24 Rx metoprolol tartrate 100 mg tablet 100 mg PO BID #180 tabs 08/02/23 08/14/24 Rx ascorbic acid (vitamin C) 125 mg 125 mg PO QAM 08/25/23 08/14/24 History chewable tablet carbamazepine 400 mg 400 mg PO BID #180 tabs 01/10/24 08/14/24 Rx tablet,extended release,12 hr duloxetine 20 mg capsule,delayed 20 mg PO HS #90 caps 02/20/24 08/14/24 Rx release hydralazine 50 mg tablet 50 mg PO TID #270 tabs 03/05/24 08/14/24 Rx furosemide 20 mg tablet 40 mg PO QAM 05/10/24 08/14/24 History alprazolam 0.5 mg tablet 0.5 mg PO HS PRN anxiety #90 tabs 05/21/24 08/14/24 Rx doxycycline hyclate 100 mg capsule 100 mg PO BID 7 days #14 caps 08/13/24 08/14/24 Rx levothyroxine 112 mcg tablet 112 mcg PO DAILYBB 08/14/24 08/14/24 History rosuvastatin 20 mg tablet 20 mg PO HS 08/14/24 08/14/24 History telmisartan 80 mg tablet 80 mg PO QAM 08/14/24 08/14/24 History Past Med/Surg History Problem List (Updated 08/15/24 @ 01:53 by Riya Lucas PA-C) Hypertension Hypomagnesemia Hypokalemia Elevated troponin Tachycardia Infection due to human metapneumovirus (hMPV) Acute dyspnea (Acute) Moderate to severe aortic stenosis Episode of syncope (03/2023) Labile hypertension Bradycardia (Acute) Complete left bundle branch block (LBBB) (Acute) Palpitations Sleep apnea CPAP Hyperlipidemia Hypertension History of rheumatic fever as a child Depression Anxiety Hypothyroidism Aortic regurgitation Pre-diabetes (Acute) Osteoporosis (Acute) Mitral regurgitation (Acute) Low serum renin (Acute) Leukopenia (Acute) Kidney lesion, [place], right (Acute) IPMN (intraductal papillary mucinous neoplasm) (Acute) History of stroke (Acute) Left internal capsule CVA December 2011. Herpes simplex type 1 infection (Acute) Carotid artery plaque (Acute) SIADH (syndrome of inappropriate ADH production) ILDEFONSO positive Seasonal allergies DVT prophylaxis Right sided weakness Balance problems History of vitamin D deficiency Pes planus Valgus deformity of foot Left knee DJD Moderate mitral regurgitation Allergic rhinitis History of seizure Medical History (Updated 08/15/24 @ 01:53 by Riya Lucas PA-C) Hyperaldosteronism Mitral regurgitation Aortic stenosis Osteopenia GERD (gastroesophageal reflux disease) Seizure LAST 29 YEARS AGO Stroke 6 YEARS AGO [facility] - RLE WEAKNESS - ON ASA - DOES NOT FOLLOW W/ NEUROLOGIST Surgical History History of total hysterectomy with bilateral salpingo-oophorectomy (BSO) H/O colonoscopy History of tooth extraction History of tubal ligation History of thyroidectomy Family History Sister Myocardial infarction Depression Stroke Hypertension Father Cardiac disorder Colon cancer Colorectal cancer Prostate cancer Brother Depression Hypertension Prostate cancer Mother Hypertension Coronary heart disease Other Heart disease No family history of adverse response to anesthesia No family history of bleeding disorder Denies family history of Ovarian cancer Breast cancer Social History Smoking Status: Former smoker Tobacco Type: Cigarettes Age Started Using Tobacco: 26; Age Quit Using Tobacco: 29; packs per day: 0.25; Cigarettes Per Day: 5; Second Hand Exposure: No; Do You Dip or Chew Tobacco: No; Hx Alcohol Use: No Hx Substance Use: No Preferred Language: Greenlandic Communication Ability: Effective Visual Impairment: No Limitations Hearing Ability: Use of Hearing Aid Culinary Worker Required: No Beliefs That Will Affect Care: None marital status: Current Living Situation: Spouse current occupational status: retired Feels Safe at Home: Yes Safety Concerns: Feels Safe At This Time Childhood Exposure to Second-Hand Smoke: No Diet: regular caffeine: Yes Dental Care, Regularly: Yes Physical Activity Frequency: Does not Exercise Seatbelt Use: always Sunscreen Use: Yes Assistive Devices: CPAP, Glasses and Hearing Aid - Bilateral Review of Systems Review of Systems: see HPI Physical Exam Physical Exam: The patient is awake, alert and oriented 3, well developed and well nourished, normocephalic and atraumatic, in no acute distress. Non-toxic appearing. HEENT- EOMI, mucous membranes dry. Hearing grossly intact. Heart-normal S1 and S2. No murmurs, rubs or gallops. Lungs-decreased bilaterally, difficult to asses on BiPap. Abdomen-normal bowel sounds and soft. No ascites noted. Non-tender. Extremities- no clubbing, cyanosis, or edema. Rheumatologic-normal range of motion. Psychiatric-normal affect. Results & Data Results & Data Vital Signs (Past 12 Hours) Vital Signs Temp Pulse Pulse Resp BP BP Pulse Ox 08/14/24 22:55 112 H 28 H 94 08/14/24 21:07 93 H 26 H 209/137 H 94 08/14/24 21:07 08/14/24 21:07 08/14/24 21:07 96 H 26 H 92 08/14/24 21:01 101 H 08/14/24 20:47 36.6 C 102 H 18 194/104 H 92 O2 Del Method FiO2 08/14/24 22:55 21 08/14/24 21:07 Room Air 08/14/24 21:07 Room Air 08/14/24 21:07 Room Air 08/14/24 21:07 Room Air 08/14/24 21:01 08/14/24 20:47 Room Air Laboratory Results Reviewed CBC, CMP, bio fire, mg, BNP Diagnostic Findings reviewed cxr Medications Administered ED: 2x duoneb+ 40 Meq K+ in NSS at 100 ml/hr ECG Additional Comments: PVCs with much artifact - difficult to interpret repeat EKG ordered Code Status & VTE Plan Code Status full code VTE Prophylaxis Plan VTE Prophylaxis will be ordered: Yes Supervising Physician Co-Signing Physician Notes Attending addendum: I have physically seen this patient, have supervised the MARK's activities, and agree with the H&P unless as otherwise noted. Assessment and Plan: The patient is a 79-year-old female with a past medical history including GALINA on CPAP, seizure disorder, moderate to severe aortic stenosis, mitral regurgitation, hypertension, hypothyroidism, IPMN, depression, SIADH, and anxiety with depression. She initially was seen by her PCP and prescribed doxycycline, for which she has taken 2 doses since 08/14 for symptoms of rhinorrhea, cough and dyspnea. Due to worsening symptoms she presented to the emergency department for assessment this evening, and was noted by respiratory [facility] test to be human metapneumovirus positive, with elevated troponin, and was then referred for evaluation for admission. #Human metapneumovirus infection- Noted positivity on respiratory [facility] testing Symptoms of rhinorrhea, cough, yellow mucus production and dyspnea Chest x-ray without acute findings Hold on any further antibiotics at this time unless develops more significant signs of secondary bacterial infection Supportive care with Tessalon Perles 1 mg p.o. 3 times daily as needed, Mucinex 600 mg p.o. every 12 hours, acetaminophen 650 mg by mouth every 6 hours as needed for mild pain or fever DuoNebs every 2 hours as needed Incentive spirometry Droplet precautions Patient initially was requiring BiPAP in the emergency department, however, this was successfully changed to nasal cannula, with titration goal 92% #Elevated troponin/hypertension- Patient did have some mildly uncontrolled hypertension while in the emergency department, but did improve with getting her evening dosages of Lopressor and hydralazine The patient will be admitted to telemetry for serial cardiac enzymes, serial EKG's, cardiac rhythm monitoring and a 2-D echocardiogram with Dopplers. Most recent echocardiogram from 04/09 showed ejection fraction 50-55%, with moderate-severe aortic stenosis BNP is mildly elevated, however, patient appears to be clinically dry, and will monitor preload closely with significant aortic stenosis, and will therefore temporarily hold Lasix Continue aspirin #Electrolyte disturbances/hypokalemia/hypomagnesemia- Potassium 3.0, with magnesium 1.8 Replacing potassium orally and IV as noted Temporarily holding Lasix as noted Repeating laboratories in the a.m. Chronic medical issues: Anxiety/depression-continue alprazolam and duloxetine Seizure disorder-continue carbamazepine Hypothyroidism-continue levothyroxine GALINA-CPAP at bedtime Hyperlipidemia- Continue rosuvastatin PG Care Time/CCT Total # of Minutes Spent Total Time Spent with Patient: Total time spent is greater than 50% in coordination of care (as documented) at patient's floor/unit and/or counseling patient: Coding Level of Care Code 67524 INT INP/OBS CARE 3/75MIN Diagnoses Infection due to human metapneumovirus (hMPV) B34.8 Acute dyspnea R06.00 Tachycardia R00.0 Essential hypertension I10 Hypertension type: essential hypertension Elevated troponin R79.89 Hypokalemia E87.6 Hypomagnesemia E83.42 Hyponatremia E87.1 (4) Hypertension Hypertension type: essential hypertension Qualified Code(s): I10 - Essential (primary) hypertension
[2024-08-14] MEDS: POTASSIUM CHLORIDE 40 MEQ in SODIUM CHLORIDE 0.9% 1,000 ML IV SCH (23:21)
--- NOTE | 2024-08-14 23:22 | XRay Report ---
Exam(s): XR CXR 1 VIEW EXAM: XR Chest, 1 View CLINICAL HISTORY: Reason for exam: Dyspnea. TECHNIQUE: Frontal view of the chest. COMPARISON: 02/24/2023. FINDINGS: Lungs: There is prominence of the interstitial markings.. No consolidation. Pleural space: No pleural effusion is seen.. No pneumothorax. Heart: Heart is top normal in size.. Mediastinum: Unremarkable. Bones/joints: There is a scoliosis of the spine with degenerative changes.. IMPRESSION: There is prominence of the interstitial markings which appears similar to previous exam and may be chronic in nature.. Electronically signed by: Charlie George MD 08/14/24 23:22 PM
[2024-08-14 23:32] LABS: Magnesium 1.8 mg/dl (1.7-2.4)
[2024-08-14] MEDS ORDERED: METOPROLOL TARTRATE 100 MG TAB PO ONE (23:45)
[2024-08-15] MEDS ORDERED: ALPRAZolam 0.5 MG TABLET PO PRN (00:38)
[2024-08-15] MEDS ORDERED: ACETAMINOPHEN 325 MG TAB PO PRN (00:38)
[2024-08-15] MEDS ORDERED: ONDANSETRON INJ 2 MG/ML 2 ML VIAL IV PRN (00:38)
[2024-08-15] MEDS: hydrALAZINE TAB 50 MG TAB PO STA (00:47)
[2024-08-15] MEDS: METOPROLOL TARTRATE 100 MG TAB PO STA (00:47)
[2024-08-15] MEDS: POTASSIUM CHLORIDE CRTAB 20 MEQ TABCR PO STA (00:52)
[2024-08-15] MEDS: MAGNESIUM SULFATE / D5W 1 GM/100 ML BAG IV ONE (00:55)
[2024-08-15] MEDS: carBAMazepine XR 200 MG TABCR PO SCH (01:31)
[2024-08-15] MEDS: DULoxetine HCL 20 MG CAP PO SCH (01:31)
[2024-08-15] MEDS: FLUTICASONE PROPIONATE NA SPR 16 GM BTL SCH (01:32)
[2024-08-15 03:26] LABS: Appearance Urine Clear (Clear); Bacteria Urine Automated None Seen (None Seen); Bilirubin Urine Negative (Negative); Blood Urine Negative (Negative); Cast Urine Automated 0-2 /lpf (0-2); Color Urine Yellow; Epithelial Cell Urine Auto 0-2 /hpf (0-2); Glucose Urine UA Negative (Negative); Ketones Urine 1+ (Negative); Leukocyte Esterase Urine Negative (Negative); Nitrite Urine Negative (Negative); Protein Urine Trace (Negative); RBC Urine Automated 0-2 /hpf (0-2); Specific Gravity Urine 1.008 (1.000-1.030); Urobilinogen Urine Negative (Negative); WBC Urine Automated 0-5 /hpf (0-5)
[2024-08-15] MEDS: METOPROLOL TARTRATE 1 MG/ML VIAL IV STA ×3 (03:47→05:06)
[2024-08-15] MEDS: SODIUM CHLORIDE 0.9% 500 ML IV ONE (04:23)
[2024-08-15] MEDS: OPTIRAY 320 125ml IV ONE (05:23)
[2024-08-15] MEDS: LEVOTHYROXINE SODIUM 112 MCG TABLET PO SCH (05:33)
[2024-08-15] MEDS: ALBUT/IPRATROP 3MG/0.5MG NEB 3 ML VIAL NEB PRN (06:28)
[2024-08-15 06:34] LABS: Basophils # (auto) 0.01 K/uL (0.00-0.20); Basophils % (auto) 0.2 %; Eosinophils # (auto) 0.01 K/uL (0.00-0.50); Eosinophils % (auto) 0.2 %; Hematocrit (blood only) 39.1 % (37.0-47.0); Hemoglobin 13.6 g/dl (12.0-16.0); Immature Granulocytes # (auto) 0.02 K/uL (0.01-0.20); Immature Granulocytes % (auto) 0.3 %; Lymphocytes # (auto) 1.11 K/uL (1.20-3.40); Mean Corpuscular Hemoglobin 30.3 pg (25.0-34.0); Mean Corpuscular Hgb Conc 34.8 g/dL (32.0-36.0); Mean Corpuscular Volume 87.1 fL (80.0-100.0); Mean Platelet Volume 9.9 fL (9.4-12.4); Monocytes # (auto) 0.55 K/uL (0.11-0.59); Monocytes % (auto) 8.4 %; Neutrophils # (auto) 4.84 K/uL (1.40-6.50); Neutrophils % (auto) 73.9 %; Platelet Count 198 K/uL (130-400); RDW Coefficient of Variation 11.5 % (11.5-14.5); RDW Standard Deviation 37.1 fL (36.4-46.3); Red Blood Count 4.49 M/uL (4.20-5.40); White Blood Count 6.54 K/ul (4.8-10.8)
[2024-08-15 06:43] LABS: BUN Creatinine Ratio 16.1 (10-20); Calcium 8.2 mg/dl (8.6-10.3); Creatinine Clr Calc Pharmacy 80.4 ml/min; Magnesium 2.1 mg/dl (1.7-2.4); Potassium 4.4 mmol/L (3.5-5.1)
--- NOTE | 2024-08-15 06:53 | CT Scan Report ---
EXAM: CT angio chest PE protocol CLINICAL HISTORY: Chest pain , shortness of breath, eval for PE. TECHNIQUE: CT angiography of the chest was performed with intravenous contrast with the following protocol: axial images with, reconstructed coronal and sagittal images. One of these 3D techniques was utilized: Maximum Intensity Pixel (MIP), 3D Reconstructed Images, Volume Rendered Images, Surface Shaded Rendering. One of the following dose reduction techniques was utilized for this exam: Automated exposure control, adjustment of the mA and/or kV according to patient size, and use of iterative reconstruction. CTDI: 29.6 mGy, DLP: 546.6 mGy*cm. COMPARISON: X-ray dated 03/27/2023. FINDINGS: Aorta and Great Vessels: Mild atheromatous calcification of the thoracic aorta with tortuosity. Ascending Aorta: Normal in caliber measuring 34 mm, no aneurysm, dissection, or significant atherosclerosis. Aortic Arch: Normal in caliber measuring 30 mm, no aneurysm, dissection, or significant atherosclerosis. Descending Aorta: Normal in caliber, no aneurysm, dissection, or significant atherosclerosis. Pulmonary Arteries: The main pulmonary artery and its branches are patent. No evidence of pulmonary embolism or significant stenosis. Heart: Cardiac Chambers: Cardiomegaly with left atrioventricular preponderance. Pericardium: No pericardial effusion or thickening. Lungs and Pleura: Bilateral lung parenchymal, most evident left lower lobar, centrilobular, and cindy-bronchovascular nodules, tree in bud densities, and ground glass opacities. No pleural effusion or pleural thickening. Mediastinum: No mediastinal mass or abnormal lymphadenopathy. Normal appearance of the trachea and central bronchi. Hilar Structures: Hilar structures are normal without enlargement. Chest Wall: No mass lesions or abnormalities in the chest wall. a surgically removed thyroid gland, with surgical clips in the operative bed. Vascular Structures: Superior Vena Cava: Patent without evidence of stenosis or thrombus. Inferior Vena Cava: Patent without evidence of stenosis or thrombus. Bones and Soft Tissues: Spondylotic changes with marked dextro-scoliosis. Bilteral arthritic changes if the glenohumeral articulation. T12 osseous hemangioma. No fractures, lytic, or blastic lesions of the visualized bony structures. Soft tissues are unremarkable. Upper abdominal cuts: Bilobar multiple hypodense focal lesions, the largest measures 10 mm. A small sliding hiatus hernia. Reflux of contrast into the hepatic vein suggests tricuspid regurge. IMPRESSION: 1. No evidence of pulmonary embolism or significant stenosis. 2. No aortic aneurysm, dissection, or significant atherosclerosis. 3. Cardiomegaly with left atrioventricular preponderance. 4. Bilateral lung parenchymal, most evident left lower lobar, centrilobular, and cindy-bronchovascular nodules, tree in bud densities, and ground glass opacities, suggest an endobronchial spread of infection, needs clinical/lab correlation. 5. Bilobar multiple hypodense focal lesions, the largest measuring 10 mm, could be hepatic cysts and need clinical and ultrasound evaluation. 6. A small sliding hiatus hernia. 7. Reflux of contrast into the hepatic vein suggests tricuspid regurge. 8. When compared to the prior X-ray, interval new bilateral lung inflammatory changes. Stable cardiomegaly. Electronically signed by Shlomo Garrett 08-15-2024 06:52 AM
[2024-08-15] MEDS: ASPIRIN 325 MG ECTAB PO SCH (08:04)
[2024-08-15] MEDS: guaiFENesin 600 MG TABCR PO SCH (08:04)
[2024-08-15] MEDS: hydrALAZINE TAB 50 MG TAB PO SCH (08:05)
[2024-08-15] MEDS: METOPROLOL TARTRATE 100 MG TAB PO SCH (08:05)
[2024-08-15] MEDS: LORATADINE 10 MG TAB PO SCH (08:05)
[2024-08-15] MEDS: BENZONATATE 100 MG CAPSULE PO SCH (09:31)
--- NOTE | 2024-08-15 09:42 | Electrocardiogram Report ---
Test Reason : Blood Pressure : */* mmHG Vent. Rate : 97 BPM Atrial Rate : 97 BPM P-R Int : 154 ms QRS Dur : 142 ms QT Int : 402 ms P-R-T Axes : * 4 63 degrees QTcB Int : 510 ms Sinus rhythm with Premature supraventricular complexes and with occasional Premature ventricular comp lexes Left bundle branch block Abnormal ECG When compared with ECG of 27-Mar-2023 13:48, Premature ventricular complexes are now Present Premature supraventricular complexes are now Present Vent. rate has increased by 44 bpm Confirmed by Henry Kelley ([id number]) on 08/15/2024 9:42:15 AM Referred By: REFERRED SELF Confirmed By: Henry Kelley
--- NOTE | 2024-08-15 10:34 | Electrocardiogram Report ---
Test Reason : Blood Pressure : */* mmHG Vent. Rate : 140 BPM Atrial Rate : 140 BPM P-R Int : 74 ms QRS Dur : 136 ms QT Int : 324 ms P-R-T Axes : * 53 -3 degrees QTcB Int : 494 ms Poor data quality, interpretation may be adversely affected Sinus tachycardia Left bundle branch block Abnormal ECG When compared with ECG of 14-Aug-2024 21:04, Premature ventricular complexes are no longer Present Premature supraventricular complexes are no longer Present Confirmed by Henry Kelley ([id number]) on 08/15/2024 10:34:11 AM Referred By: REFERRED SELF Confirmed By: Henry Kelley
--- NOTE | 2024-08-15 11:25 | XCELERA ---
[id number]
[2024-08-15] MEDS ORDERED: methylPREDNISolone 125 MG/2 ML VIAL IV STA (12:14)
--- NOTE | 2024-08-15 12:17 | Hospitalist Progress Note ---
Date of Service August 15, 2024 Assessment & Plan (1) Infection due to human metapneumovirus (hMPV): (2) Acute dyspnea: (3) Hypertension: (4) Elevated troponin: Plan Patient is a 79-year-old female with a past medical history of GALINA on CPAP, seizure disorder, aortic stenosis, mitral regurgitation, hypertension, hypothyroidism, IPMN, depression, SIADH. She is admitted with symptoms of rhinorrhea, cough, and dyspnea and found to have human metapneumovirus on [employer] panel. She does have some evidence of mild viral pneumonia on chest CT angiogram but no PE. She took 2 doses of doxycycline as an outpatient prior to admission. Here with significant respiratory distress, tachypnea, wheezing, pulse ox 87% on room air-tachypnea improves on positive pressure noninvasive ventilation. #Human metapneumovirus/viral pneumonia-with several days of rhinorrhea, cough, yellow mucus production, and worsening dyspnea. No fevers or leukocytosis or sepsis.. CXR negative for acute changes but chest CT angiogram shows upper lobe patchy pneumonia consistent with viral pneumonia. Negative for PE. Check procalcitonin and is negative, do not suspect secondary bacterial pneumonia. She has no underlying chronic lung disease but is wheezing significantly and quite tachypneic with respiratory distress.VBG WNL on admission 7.41/37. Do not suspect any component of heart failure -Trial of Vapotherm high flow nasal cannula for small amount of CPAP, requiring 28% FiO2, avoid full facemask as she is having significant coughing with posttussive gagging -Stop Tessalon Perles as not effective and start guaifenesin DM scheduled -Continue supportive care -Add IV Solu-Medrol 125 mg x 1 now then 60 Mg IV twice daily -Continue nebulizer treatments but make scheduled rather than as needed -Make her Xanax scheduled at bedtime which will also help with anxiety component of tachypnea-she takes it scheduled at home #tachycardia/hypertension/elevated troponin secondary to demand ischemia-BP 209/237 in ED and now improving, tachycardia also improving after restarting home metoprolol, hydralazine, ARB. Troponin peaked at 197 and is secondary to myocardial demand ischemia in the setting of aortic stenosis. Echo on 08/15 shows moderate aortic stenosis, low normal EF at 45-50% -Continue home medications -Continue to monitor on telemetry #hypokalemia/hypomagnesia-suspect secondary to decreased p.o. intake with acute infection, now improved with replacement -Hold home Lasix -Follow BMP, magnesium #Hyponatremia-history of SIADH-sodium at baseline with Na 130 on admission and is now up to 134 Patient remains on loop diuretic but no salt tablets at home -Continue holding Lasix #Anxiety/Depressioncontinue alprazolam but make scheduled at bedtime as she takes at home, continue duloxetine #Seizure disorderno acute issues, continue carbamazepine #Hypothyroidismrecent TSH mildly low at 0.035 -Continue home dose of levothyroxine and follow-up as outpatient #HLDcontinue statin and aspirin #OSAcontinue CPAP at bedtime-she can bring in her nasal CPAP from home if desired or continue Vapotherm here #IPMNmonitored by PCP VTE ppx: SCDs, add Lovenox Dispo: Continued stay on med/tele Admission and Anticipated Discharge Date Admission Date: August 14, 2024 Subjective Patient remains quite tachypneic and was back on BiPAP when I saw her. She however started coughing so hard that she was gagging and the mask was removed. I asked respiratory to put her on the Vapotherm high flow instead. She feels better when she is on the BiPAP but still coughing a lot. Reports Tessalon Perles do not help her. Denies chest pain. Does feel short of breath at rest. No nausea or abdominal pain, no diarrhea. Appetite is good. Telemetry with sinus tachycardia and normal sinus rhythm with rates in the 70s to low 100s Physical Exam Constitutional: well developed and + acute distress (With tachypnea) Respiratory: + labored breathing, + uses accessory mu scles, + cough, + tachypneic and + audible wheezes Auscultation: + wheezes (Diffuse expiratory but mostly upper airways); no crackles and no rhonchi Cardiovascular: Rate/Rhythm: regular rhythm and + tachycardic Heart Sounds: + murmur (2/6 GUSTABO at the RUSB) Extremities: no edema Gastrointestinal (Abdomen): normal bowel sounds, soft, nontender, no hepatosplenomegaly Psychiatric: A+Ox3, euthymic affect Results & Data Results & Data Vital Signs (Past 12 Hours) Vital Signs Temp Pulse Pulse Resp BP BP Pulse Ox 08/15/24 11:38 36.8 C 72 26 H 146/85 H 98 08/15/24 11:02 30 H 95 08/15/24 10:55 28 H 96 08/15/24 08:58 95 H 08/15/24 07:51 36.7 C 88 20 166/68 H 92 08/15/24 07:26 08/15/24 06:30 88 28 H 92 08/15/24 06:29 91 H 28 H 92 08/15/24 05:36 101 H 167/89 H 08/15/24 05:06 140 H 148/100 H 08/15/24 05:03 138 H 145/100 H 08/15/24 04:24 138 H 145/96 H 08/15/24 04:06 138 H 08/15/24 03:47 143 H 150/83 H 08/15/24 03:40 36.6 C 143 H 30 H 150/83 H 96 08/15/24 01:55 83 26 H 92 08/15/24 01:10 08/15/24 00:47 119 H 08/15/24 00:39 36.6 C 118 H 20 197/96 H 94 O2 Del Method 08/15/24 11:38 BiPAP 08/15/24 11:02 BiPAP 08/15/24 10:55 08/15/24 08:58 08/15/24 07:51 BiPAP 08/15/24 07:26 Nebulizer 08/15/24 06:30 08/15/24 06:29 Room Air, CPAP 08/15/24 05:36 08/15/24 05:06 08/15/24 05:03 08/15/24 04:24 08/15/24 04:06 08/15/24 03:47 08/15/24 03:40 Room Air, CPAP 08/15/24 01:55 08/15/24 01:10 Room Air 08/15/24 00:47 08/15/24 00:39 Room Air Laboratory Results CBC, BMP, BNP reviewed Diagnostic Findings Echocardiogram reviewed PG Care Time/CCT Total # of Minutes Spent Total Time Spent with Patient: Total time spent is greater than 50% in coordination of care (as documented) at patient's floor/unit and/or counseling patient: Coding Level of Care Code 40306 SUB INP/OBS CARE 3/50MIN Diagnoses Infection due to human metapneumovirus (hMPV) B34.8 Acute dyspnea R06.00 Essential hypertension I10 Hypertension type: essential hypertension Elevated troponin R79.89 (3) Hypertension Hypertension type: essential hypertension Qualified Code(s): I10 - Essential (primary) hypertension
[2024-08-15] MEDS: TELMISARTAN 40 MG TAB PO SCH (12:21)
[2024-08-15] MEDS: guaiFENesin/DEXTROM SYRUP 200MG/20MG 10ML UDC PO SCH (12:28)
[2024-08-15] MEDS: methylPREDNISolone 125 MG in SYRINGE 0 ML IV STA (12:29)
[2024-08-15] MEDS: ALBUT/IPRATROP 3MG/0.5MG NEB 3 ML VIAL NEB SCH (14:32)
[2024-08-15] MEDS ORDERED: methylPREDNISolone 1000 MG/16 ML IV SCH (21:00)
[2024-08-15] MEDS: ROSUVASTATIN CALCIUM 20 MG TAB PO SCH (21:14)
[2024-08-15] MEDS: methylPREDNISolone 60 MG in SYRINGE 0 ML IV SCH (21:14)
[2024-08-15] MEDS: ALPRAZolam 0.5 MG TABLET PO SCH (21:15)
[2024-08-16 07:58] LABS: BUN Creatinine Ratio 21.7 (10-20); Calcium 8.2 mg/dl (8.6-10.3); Creatinine Clr Calc Pharmacy 76.8 ml/min; Magnesium 2.1 mg/dl (1.7-2.4); Potassium 3.7 mmol/L (3.5-5.1)
[2024-08-16 08:00] LABS: Hematocrit (blood only) 37.9 % (37.0-47.0); Hemoglobin 12.7 g/dl (12.0-16.0); Mean Corpuscular Hemoglobin 29.5 pg (25.0-34.0); Mean Corpuscular Hgb Conc 33.5 g/dL (32.0-36.0); Mean Corpuscular Volume 87.9 fL (80.0-100.0); Mean Platelet Volume 10.2 fL (9.4-12.4); Platelet Count 199 K/uL (130-400); RDW Coefficient of Variation 11.7 % (11.5-14.5); RDW Standard Deviation 37.7 fL (36.4-46.3); Red Blood Count 4.31 M/uL (4.20-5.40)
[2024-08-16 08:29] LABS: Basophils # (auto) 0.01 K/uL (0.00-0.20); Basophils % (auto) 0.1 %; Immature Granulocytes # (auto) 0.03 K/uL (0.01-0.20); Immature Granulocytes % (auto) 0.4 %; Lymphocytes # (auto) 1.96 K/uL (1.20-3.40); Lymphocytes % (auto) 23.9 %; Monocytes # (auto) 0.65 K/uL (0.11-0.59); Monocytes % (auto) 7.9 %; Neutrophils # (auto) 5.55 K/uL (1.40-6.50); Neutrophils % (auto) 67.7 %
[2024-08-16] MEDS: ENOXAPARIN INJ 40 MG/0.4 ML SYR SQ SCH (11:33)
[2024-08-16] MEDS: LOSARTAN POTASSIUM 50 MG TAB PO SCH (12:49)
--- NOTE | 2024-08-16 13:56 | Hospitalist Progress Note ---
Date of Service August 16, 2024 Assessment & Plan (1) Infection due to human metapneumovirus (hMPV): (2) Acute dyspnea: (3) Hypertension: (4) Elevated troponin: Plan Patient is a 79-year-old female with a past medical history of GALINA on CPAP, seizure disorder, aortic stenosis, mitral regurgitation, hypertension, hypothyroidism, IPMN, depression, SIADH. She is admitted with symptoms of rhinorrhea, cough, and dyspnea and found to have human metapneumovirus on [employer] panel. She does have some evidence of mild viral pneumonia on chest CT angiogram but no PE. She took 2 doses of doxycycline as an outpatient prior to admission. Here with significant respiratory distress, tachypnea, wheezing, pulse ox 87% on room air-tachypnea improved on positive pressure noninvasive ventilation. #Human metapneumovirus/viral pneumonia-with several days of rhinorrhea, cough, yellow mucus production, and worsening dyspnea. No fevers or leukocytosis or sepsis. CXR negative for acute changes but chest CT angiogram shows upper lobe patchy pneumonia consistent with viral pneumonia. Negative for PE. Procalcitonin negative, do not suspect secondary bacterial pneumonia. She has no underlying chronic lung disease but is wheezing significantly and quite tachypneic with respiratory distress.VBG WNL on admission 7.41/37. Do not suspect any component of heart failure Improving now after starting IV steroids which are causing flushing--now on 2LNC O2 -continue to wean off and may need 2 step walk test prior to discharge -continue guaifenesin DM scheduled -Continue supportive care -continue IV Solu-Medrol 60 Mg IV twice daily -Continue nebulizer treatments scheduled -follow for continued clinical improvement #tachycardia/hypertension/elevated troponin secondary to demand ischemia-BP 209/237 in ED and now improved but slightly elevated; tachycardia also resolved. Troponin peaked at 197 and is secondary to myocardial demand ischemia in the setting of aortic stenosis. Echo on 08/15 shows moderate aortic stenosis, low normal EF at 45-50% -Continue home medications of metoprolol, hydralazine, and now adding back on losartan (substitute for home telmisartan) and resume home lasix -Continue to monitor on telemetry #hypokalemia/hypomagnesia-suspect secondary to decreased p.o. intake with acute infection, now resolved with replacement -ok to resume home Lasix -Follow BMP, magnesium #Hyponatremia-history of ?SIADH-sodium at baseline with Na 130 on admission and is now further up to 135. SHe is on loop diuretic at home -will resume home Lasix -follow BMP #Anxiety/Depressioncontinue alprazolam scheduled at bedtime, continue duloxetine #Seizure disorderno acute issues, continue carbamazepine #Hypothyroidismrecent TSH mildly low at 0.035 -Continue home dose of levothyroxine and follow-up as outpatient #HLDcontinue statin and aspirin #OSAcontinue CPAP at bedtime-she can bring in her nasal CPAP from home if desired or continue Vapotherm here #IPMNmonitored by PCP VTE ppx: SCDs, Lovenox Dispo: Continued stay on med/tele Admission and Anticipated Discharge Date Admission Date: August 14, 2024 Subjective Pt feeling a bit better today, less SOB at rest but still easily SAMANIEGO. Feeling more comfortable on just 2LNC. Coughing up sputum. Feels flushed in cheeks and sweating since starting IV steroids Tele with NSR, IVCD, rates 60-80s Physical Exam Constitutional: well developed; no acute distress (much improved) Respiratory: + cough and + tachypneic (only with talk ing in multiple sentences) Auscultation: + wheezes (Diffuse expiratory but improved); no crackles and no rhonchi Cardiovascular: Rate/Rhythm: regular rhythm and + tachycardic Heart Sounds: + murmur (2/6 GUSTABO at the RUSB) Extremities: no edema Gastrointestinal (Abdomen): normal bowel sounds, soft, nontender, no hepatosplenomegaly Psychiatric: A+Ox3, euthymic affect Results & Data Results & Data Vital Signs (Past 12 Hours) Vital Signs Temp Pulse Pulse Resp BP Pulse Ox O2 Del Method 08/16/24 11:01 36.7 C 89 28 H 158/99 H 95 Nasal Cannula 08/16/24 10:17 87 20 97 Nasal Cannula 08/16/24 08:48 Nasal Cannula 08/16/24 07:40 84 20 96 CPAP 08/16/24 07:34 36.4 C L 78 24 170/89 H 94 BiPAP 08/16/24 07:22 71 08/16/24 03:40 37.0 C 71 20 168/83 H 95 BiPAP 08/16/24 03:36 87 24 93 O2 Flow Rate FiO2 08/16/24 11:01 2 08/16/24 10:17 2 08/16/24 08:48 2 08/16/24 07:40 21 08/16/24 07:34 08/16/24 07:22 08/16/24 03:40 08/16/24 03:36 Laboratory Results CBC, BMP, magnesium reviewed PG Care Time/CCT Total # of Minutes Spent Total Time Spent with Patient: Total time spent is greater than 50% in coordination of care (as documented) at patient's floor/unit and/or counseling patient: Coding Level of Care Code 92905 SUB INP/OBS CARE 2/35MIN Diagnoses Infection due to human metapneumovirus (hMPV) B34.8 Acute dyspnea R06.00 Essential hypertension I10 Hypertension type: essential hypertension Elevated troponin R79.89 (3) Hypertension Hypertension type: essential hypertension Qualified Code(s): I10 - Essential (primary) hypertension
[2024-08-16] MEDS: FUROSEMIDE 40 MG TAB PO SCH (14:26)
[2024-08-17 06:44] LABS: BUN Creatinine Ratio 23.8 (10-20); Calcium 8.2 mg/dl (8.6-10.3); Creatinine Clr Calc Pharmacy 73.1 ml/min; Magnesium 2.2 mg/dl (1.7-2.4); Potassium 4.3 mmol/L (3.5-5.1)
[2024-08-17] MEDS: MULTIVITAMIN TAB PO SCH (07:44)
[2024-08-17] MEDS: CHOLECALCIFEROL 25 MCG (1000 UNITS) TAB PO SCH (07:44)
[2024-08-17] MEDS: ALBUT/IPRATROP 3MG/0.5MG NEB 3 ML VIAL NEB STA (13:41)
--- NOTE | 2024-08-17 17:19 | Hospitalist Progress Note ---
Date of Service August 17, 2024 Assessment & Plan (1) Infection due to human metapneumovirus (hMPV): (2) Acute dyspnea: (3) Hypertension: (4) Elevated troponin: Plan Patient is a 79-year-old female with a past medical history of GALINA on CPAP, seizure disorder, aortic stenosis, mitral regurgitation, hypertension, hypothyroidism, IPMN, depression, SIADH. She is admitted with symptoms of rhinorrhea, cough, and dyspnea and found to have human metapneumovirus on [employer] panel. She does have some evidence of mild viral pneumonia on chest CT angiogram but no PE. She took 2 doses of doxycycline as an outpatient prior to admission. Here with significant respiratory distress, tachypnea, wheezing, pulse ox 87% on room air-tachypnea improved on positive pressure noninvasive ventilation. #Human metapneumovirus/viral pneumonia-with several days of rhinorrhea, cough, yellow mucus production, and worsening dyspnea. No fevers or leukocytosis or sepsis. CXR negative for acute changes but chest CT angiogram shows upper lobe patchy pneumonia consistent with viral pneumonia. Negative for PE. Procalcitonin negative, do not suspect secondary bacterial pneumonia. She has no underlying chronic lung disease but was wheezing significantly and quite tachypneic with respiratory distress for the first 2 days of hospital stay..VBG WNL on admission 7.. Do not suspect any component of heart failure Now MUCH improved after starting IV steroids -now weaned to room air and no longer tachypneic or wheezing -continue guaifenesin DM scheduled -Continue supportive care -continue IV Solu-Medrol 60 Mg IV twice daily for one more day then transition to po prednisone on 08/18 if continues to improve -Continue nebulizer treatments scheduled -continue to follow for clinical improvement #tachycardia/hypertension/elevated troponin secondary to demand ischemia/NSVT-BP 209/237 in ED and now improved but slightly elevated; tachycardia also resolved. Troponin peaked at 197 and is secondary to myocardial demand ischemia in the setting of aortic stenosis. Echo on 08/15 shows moderate aortic stenosis, low normal EF at 45-50% Had 19 beat run of VT on 08/17-none since and asymptomatic. EF within normal range. Lytes optimal -Continue home medications of metoprolol, hydralazine, lasix and losartan (substitute for home telmisartan) -Continue to monitor on telemetry -pt requests change to regular diet from heart healthy #hypokalemia/hypomagnesemia-suspect secondary to decreased p.o. intake with acute infection, now resolved with replacement -have since resumed home Lasix -Follow BMP, magnesium #Constipation-start Senokot #Hyponatremia-history of ?SIADH as per chart perhaps from carbamazepine?-sodium at baseline with Na 130 on admission and is up to 135. She is on loop diuretic at home -continue home Lasix -follow BMP #Anxiety/Depressioncontinue alprazolam scheduled at bedtime, continue duloxetine #Seizure disorderno acute issues, continue carbamazepine #Hypothyroidismrecent TSH mildly low at 0.035 -Continue home dose of levothyroxine and follow-up as outpatient #HLDcontinue statin and aspirin #OSAcontinue CPAP at bedtime-she can bring in her nasal CPAP from home if desired #IPMNmonitored by PCP VTE ppx: SCDs, Lovenox Dispo: Continued stay on med/tele, improving, possible dc to home in 1-2 days Admission and Anticipated Discharge Date Admission Date: August 14, 2024 Subjective Pt starting to feel much better today. Is weaned off O2 to room air, still feels some wheezing more in upper airway but is much less SOB and is able to walk to bathroom and back. Having trouble with constipation. Tele with NSR, normal rates in 60-70s, with an isolated 19 beat run of VT Physical Exam Constitutional: well developed; no acute distress (much improved) Respiratory: normal respiratory effort, + cough (mild) and able to speak in complete sentences; not tachypneic Auscultation: no crackles, no rhonchi and no wheezes Cardiovascular: Rate/Rhythm: regular rhythm Heart Sounds: + murmur (2/6 GUSTABO at the RUSB) Extremities: no edema Psychiatric: A+Ox3, euthymic affect Results & Data Results & Data Vital Signs (Past 12 Hours) Vital Signs Temp Pulse Pulse Resp BP BP Pulse Ox 08/17/24 15:19 36.7 C 75 18 148/78 H 93 08/17/24 14:36 36.8 C 69 16 159/81 H 93 08/17/24 13:55 73 08/17/24 13:35 77 22 96 08/17/24 11:18 36.8 C 67 20 154/77 H 92 01/31/25 11:07 36.8 C 67 18 160/85 H 97 08/17/24 10:33 22 96 08/17/24 08:11 36.4 C L 69 18 168/87 H 97 08/17/24 07:30 08/17/24 07:30 36.7 C 62 18 165/88 H 93 08/17/24 07:26 61 17 98 08/17/24 07:16 61 O2 Del Method O2 Flow Rate 08/17/24 15:19 Room Air 08/17/24 14:36 Room Air 08/17/24 13:55 08/17/24 13:35 Nasal Cannula 1 08/17/24 11:18 Nasal Cannula 1 08/17/24 11:07 Nasal Cannula 2 08/17/24 10:33 Nasal Cannula 2 08/17/24 08:11 Nasal Cannula 2 08/17/24 07:30 Nasal Cannula 2 08/17/24 07:30 Nasal Cannula 2 08/17/24 07:26 Nasal Cannula 2 08/17/24 07:16 Laboratory Results BMP, mag sputum cx reviewed PG Care Time/CCT Total # of Minutes Spent Total Time Spent with Patient: Total time spent is greater than 50% in coordination of care (as documented) at patient's floor/unit and/or counseling patient: Coding Level of Care Code 66782 SUB INP/OBS CARE MIN Diagnoses Infection due to human metapneumovirus (hMPV) B34.8 Acute dyspnea R06.00 Essential hypertension I10 Hypertension type: essential hypertension Elevated troponin R79.89 (3) Hypertension Hypertension type: essential hypertension Qualified Code(s): I10 - Essential (primary) hypertension
[2024-08-17] MEDS: SENNA 8.6 MG TAB PO SCH (18:02)
[2024-08-17] MEDS: MELATONIN 3 MG TAB PO PRN (20:39)
--- NOTE | 2024-08-18 08:09 | Hospitalist Progress Note ---
Date of Service August 18, 2024 Assessment & Plan (1) Infection due to human metapneumovirus (hMPV): (2) Acute dyspnea: (3) Hypertension: (4) Elevated troponin: Plan Patient is a 79-year-old female with a past medical history of GALINA on CPAP, seizure disorder, aortic stenosis, mitral regurgitation, hypertension, hypothyroidism, IPMN, depression, SIADH. She is admitted with symptoms of rhinorrhea, cough, and dyspnea and found to have human metapneumovirus on [employer] panel. She does have some evidence of viral pneumonia on chest CT angiogram but no PE. She took 2 doses of doxycycline as an outpatient prior to admission. Here with significant respiratory distress, tachypnea, wheezing, pulse ox 87% on room air-tachypnea improved on positive pressure noninvasive ventilation. #Human metapneumovirus/viral pneumonia-with several days of rhinorrhea, cough, yellow mucus production, and worsening dyspnea. No fevers or leukocytosis or sepsis. CXR negative for acute changes but chest CT angiogram shows upper lobe patchy pneumonia consistent with viral pneumonia. Negative for PE. Procalcitonin negative, do not suspect secondary bacterial pneumonia. She has no underlying chronic lung disease but was wheezing significantly and quite tachypneic with respiratory distress for the first 2 days of hospital stay..VBG WNL on admission 7.37. Do not suspect any component of heart failure Now MUCH improved after starting IV steroids -now weaned to room air and no longer tachypneic or wheezing -continue guaifenesin DM scheduled -Continue supportive care -continue IV Solu-Medrol 60 Mg IV twice daily for one more day then transition to po prednisone on 08/18 if continues to improve -Continue nebulizer treatments scheduled -continue to follow for clinical improvement #tachycardia/hypertension/elevated troponin secondary to demand ischemia/NSVT-BP 209/237 in ED and now improved but slightly elevated; tachycardia also resolved. Troponin peaked at 197 and is secondary to myocardial demand ischemia in the setting of aortic stenosis. Echo on 08/15 shows moderate aortic stenosis, low normal EF at 45-50% Had 19 beat run of VT on 08/17-none since and asymptomatic. EF within normal range. Lytes optimal -Continue home medications of metoprolol, hydralazine, lasix and losartan (substitute for home telmisartan) -Continue to monitor on telemetry -pt requests change to regular diet from heart healthy #hypokalemia/hypomagnesemia-suspect secondary to decreased p.o. intake with acute infection, now resolved with replacement -have since resumed home Lasix -Follow BMP, magnesium #Constipation-start Senokot #Hyponatremia-history of ?SIADH as per chart perhaps from carbamazepine?-sodium at baseline with Na 130 on admission and is up to 135. She is on loop diuretic at home -continue home Lasix -follow BMP #Anxiety/Depressioncontinue alprazolam scheduled at bedtime, continue duloxetine #Seizure disorderno acute issues, continue carbamazepine #Hypothyroidismrecent TSH mildly low at 0.035 -Continue home dose of levothyroxine and follow-up as outpatient #HLDcontinue statin and aspirin #OSAcontinue CPAP at bedtime-she can bring in her nasal CPAP from home if desired #IPMNmonitored by PCP VTE ppx: SCDs, Lovenox Admission and Anticipated Discharge Date Admission Date: August 14, 2024 Results & Data Results & Data Vital Signs (Past 12 Hours) Vital Signs Temp Pulse Pulse Resp BP BP Pulse Ox 08/18/24 07:37 66 18 93 08/18/24 07:30 98.1 F 60 16 163/85 H 94 08/18/24 07:00 60 08/18/24 04:18 98.2 F 62 16 156/79 H 94 08/17/24 23:55 98.1 F 62 18 129/75 95 08/17/24 21:57 78 08/17/24 20:38 85 174/80 H O2 Del Method 08/18/24 07:37 Room Air 08/18/24 07:30 Room Air 08/18/24 07:00 08/18/24 04:18 Room Air 08/17/24 23:55 Room Air 08/17/24 21:57 08/17/24 20:38 PG Care Time/CCT Total # of Minutes Spent Total Time Spent with Patient: Total time spent is greater than 50% in coordination of care (as documented) at patient's floor/unit and/or counseling patient: Coding Diagnoses Infection due to human metapneumovirus (hMPV) B34.8 Acute dyspnea R06.00 Essential hypertension I10 Hypertension type: essential hypertension Elevated troponin R79.89 (3) Hypertension Hypertension type: essential hypertension Qualified Code(s): I10 - Essential (primary) hypertension
[2024-08-18 10:48] VITALS: BP 170/84; TEMP 97.9
[2024-08-18 11:09] VITALS: PULSE 70; RESP 18; O2SAT 93
--- NOTE | 2024-08-18 12:31 | Discharge Summary ---
Discharge Summary Date of Service August 18, 2024 Principal Dx & Hospital Course #1 = Principal Diagnosis (1) Infection due to human metapneumovirus (hMPV): (2) Acute dyspnea: (3) Hypertension: (4) Elevated troponin: Plan Patient is a 79-year-old female with a past medical history of GALINA on CPAP, seizure disorder, aortic stenosis, mitral regurgitation, hypertension, hypothyroidism, IPMN, depression, SIADH. She is admitted with symptoms of rhinorrhea, cough, and dyspnea and found to have human metapneumovirus on [employer] panel. She does have some evidence of viral pneumonia on chest CT angiogram but no PE. She took 2 doses of doxycycline as an outpatient prior to admission. Here with significant respiratory distress, tachypnea, wheezing, pulse ox 87% on room air-tachypnea improved on positive pressure noninvasive ventilation. #Human metapneumovirus/viral pneumonia-with several days of rhinorrhea, cough, yellow mucus production, and worsening dyspnea. No fevers or leukocytosis or se psis. CXR negative for acute changes but chest CT angiogram shows upper lobe patchy pneumonia consistent with viral pneumonia. Negative for PE. Procalcitonin negative, do not suspect secondary bacterial pneumonia. She has no underlying chronic lung disease but was wheezing significantly and quite tachypneic with respiratory distress for the first 2 days of hospital stay..VBG WNL on admission 7.. Do not suspect any component of heart failure Now MUCH improved after starting IV steroids -now weaned to room air and no longer tachypneic or wheezing -continue guaifenesin DM scheduled - transition to po prednisone on 08/18 -offer outpt albuterol HFA -robitussion prn for mucolytic and cough supressant -continue to follow for clinical improvement #tachycardia/hypertension/elevated troponin secondary to demand ischemia/NSVT-BP 209/237 in ED and now improved but slightly elevated; tachycardia also resolved. Troponin peaked at 197 and is secondary to myocardial demand ischemia in the setting of aortic stenosis. Echo on 08/15 shows moderate aortic stenosis, low normal EF at 45-50% Had 19 beat run of VT on 08/17-none since and asymptomatic. EF within normal range. Lytes optimal -Continue home medications of metoprolol, hydralazine, lasix and home telmisartan #hypokalemia/hypomagnesemia-suspect secondary to decreased p.o. intake with acute infection, now resolved with replaceme #Constipation- given Senokot #Hyponatremia-history of ?SIADH as per chart perhaps from carbamazepine?-sodium at baseline with Na 130 on admission and is up to 135. She is on loop diuretic at home #Anxiety/Depressioncontinue alprazolam scheduled at bedtime, continue duloxetine #Seizure disorderno acute issues, continue carbamazepine #Hypothyroidismrecent TSH mildly low at 0.035 -Continue home dose of levothyroxine and follow-up as outpatient #HLDcontinue statin and aspirin #OSAcontinue CPAP at bedtime-she can bring in her nasal CPAP from home if desired #IPMNmonitored by PCP Admission HPI Per Admitting Provider Patient is a 79-year-old female with a past medical history of GALINA on CPAP, seizure disorder, aortic stenosis, mitral regurgitation, hypertension, hypothyroidism, IPMN, depression, SIADH. She presents today due to rhinorrhea, cough, and dyspnea. She was started on doxycycline by her PCP that she took 2 doses of 08/14. She tested positive for human metapneumovirus in ED. She is be ing admitted for tachypnea, elevated troponin, and electrolyte abnormalities. Patient seen at bedside with her present. She stated that on she began with rhinorrhea and a cough. She has had yellow sputum production. She also endorses dizziness and lightheadedness. She stated that mid afternoon today she developed labored breathing so she presented to the ED. She went to her PCP yesterday tested for COVID, was started on doxycycline which she took 2 doses of 08/14. No covid result on file however negative for influenza. She also endorses decreased appetite for the past few days. Patient denies fever, chills, sore throat, chest pain, abdominal pain, nausea, vomiting, diarrhea, edema. She denies known sick contacts however her also has similar symptoms that began around the same time. she stated the DuoNebs did not seem to provide much relief however the BiPAP did. Regarding her elevated troponin, she denies chest pain. She stated she never has chest pain on exertion. She does not very active, she does not exercise. She does not use nicotine products or drink alcohol. She denies past history of cancer, DM, previous VTE. She does not use oxygen at baseline but does use CPAP at night for sleep apnea. She did take her a.m. home medications but missed her afternoon and p.m. doses of hydralazine and metoprolol. she is tachycardic with pulse of 110 and BP elevated at 168/96 on admission. Ordered home medications. She stated she is feeling much better after being put on BiPAP. Nursing to reach out to respiratory therapy to trial off BiPAP. Discharge Exam pt is on room air, does have some coarse breath sounds but feels she can recover at home at bedside and agrees not hypoxic, mild cough Discharge Plan Discharge Items Patient Disposition: Home - Self-Care Reason For Visit: TACHYPNEA, HUMAN METAPNEUMOVIRUS, ELEV TROP Discharge Diagnosis: low oxygen level due to human metapneumovirus pneumonia Activity: Per Instructions section Activity Comment: gradually increase activity Non-emergency contact: Primary Care Provider Call non-emergency contact if: your symptoms worsen Follow-up/Referrals: David Bishop MD [Primary Care Provider] - Diet: Regular Addtl Attending Provider Instructions: Human metapneumovirus (HMPV) is a virus that usually causes symptoms similar to thecommon cold. It often causesupper respiratory infections, but it can sometimes cause lower respiratory infections likepneumonia, asthma flare-ups or make chronic obstructive pulmonary disease (COPD) worse. HMPV infections are more common in the winter and early spring. How common is human metapneumovirus? Researchers estimate that about 10% to 12% of respiratory illnesses in children are caused by HMPV. Most cases are mild, but about 5% to 16% of children will develop a lower respiratory tract infection like pneumonia. What are the symptoms of human metapneumovirus? Symptoms of human metapneumovirus include: Advertisement * Cough. * Fever. * Runny or stuffy nose. * Sore throat. * Wheezing. * Shortness of breath (dyspnea) * Rash. How is human metapneumovirus transmitted? HMPV spreads through direct contact with someone who has it or from touching things contaminated with the virus. For instance: * Coughing and sneezing. * Shaking hands, hugging or kissing. * Touching surfaces or objects like phones, door handles, keyboards or toys. How is human metapneumovirus diagnosed? Healthcare providers usually diagnose HMPV based on your symptoms and health history. They might use a soft-tipped stick (swab) to get a sample from your nose or throat. A lab tests the sample for viruses and other infections. Keep in mind that you probably wont be tested for HMPV unless you have serious symptoms. How is human metapneumovirus treated? There arent any antiviral medications that treat human metapneumovirus. Most people can manage their symptoms at home until they feel better. If you or your child are severely ill, you might need to be admitted to the hospital. There, healthcare providers can monitor your condition and help prevent you from getting sicker. They might treat you with: * Oxygen therapy.If youre having a hard time breathing, a provider may give you extra oxygen through a tube in your nose or mask on your face. * IV fluids.Fluids delivered directly to your vein (IV) can keep you hydrated. * Corticosteroids.Steroids can reduce inflammation and might ease some of your symptoms. Do you need antibiotics for human metapneumovirus? No.Antibioticsonly treat bacteria. Since HMPV is a virus, antibiotics wont get rid of it. Sometimes people who get pneumonia from HMPV also get abacterial infectionat the same time (secondary infection). If your provider prescribes antibiotics, it would be to treat any secondary infections. Prevention Can you prevent a human metapneumovirus infection? You can reduce your risk of getting HMPV and otherinfectious diseasesby: * Washing your hands often with soap and water. If you arent able to use soap and water, use an alcohol-based hand dough scaler and mixer. * Cover your nose and mouth with your elbow, not your bare hand when you sneeze or cough. * Avoid being around other people when you or they are sick with a cold or other contagious diseases. * Consider wearing a mask if youre sick and cant avoid being around others. * Avoid touching your face, eyes, nose and mouth. * Dont share food or eating utensils (forks, spoons, cups) with others. How long does human metapneumovirus last? Mild cases of human metapneumovirus usually last a few days to a week. If youre very sick, itll probably take longer to feel better. You might also have lingering symptoms, like a cough, that take longer to go away. How do I take care of myself? You can manage mild, cold-like symptoms of HMPV at home by: * Drinking lots of fluids to preventdehydration. * Taking krwv-rje-bmqfhgy (OTC) medications like pain relievers, decongestants and cough suppressants to help your symptoms. Dont give medications to kids without asking their bladder cleaner first some medications that are OK for adults arent safe for kids. When should I see my healthcare provider? Contact a healthcare provider if: * You or your child has symptoms of a respiratory infection and an underlying condition that puts you or them at an elevated risk for severe illness. * Your symptoms or your josiane symptoms dont start to improve within a few days or if you or your child has a fever lasting longer than three days. When should I go to the ER? Go to the ER or seek immediate medical attention if you or your child has symptoms of severe illness, including: * High fever (over 103 degrees Fahrenheit /40 degrees Celsius). * Difficulty breathing. * Bluish skin, lips or nails (cyanosis). * Worsening of other health conditions. Addtl Bulk Sealer Operator Provider Instructions: please complete a prednisone taper( this is a corticosteroid) and follow up with your primary care this week you may use guaifenesin ( Mucinex or Robitussin or generic) and if you wish to suppress your cough get the DM ( dextromethorphan) use the inhaler if you feel short of breath or wheezy, always drink a sip of water after using it to rinse out your mouth from any retained aerosol medication Pending Studies at Discharge: No Stand-Alone Forms: My [facility], Smoking Cessation Medications and DC Order Prescriptions: New prednisone 10 mg tablet 10 mg PO DIRECTED Qty: 40 0RF Rx Instructions: 4 a day x 4 d>3 a day x 4 d>2 a day x 4 d>1 a day albuterol sulfate 90 mcg/actuation HFA aerosol inhaler 1 inh inhalation Q6H PRN (Reason: shortness of breath or wheezing) Qty: 6.7 0RF Continued cholecalciferol (vitamin D3) [Vitamin D3] 50 mcg (2,000 unit) capsule 2,000 unit PO QAM alendronate 70 mg tablet 70 mg PO Q7D Qty: 12 3RF Rx Instructions: Take medication on empty stomach and then sit upright for 30 minutes mondays metoprolol tartrate 100 mg tablet 100 mg PO BID Qty: 180 3RF carbamazepine 400 mg tablet extended release 12 hr 400 mg PO BID Qty: 180 3RF duloxetine 20 mg capsule,delayed release(DR/EC) 20 mg PO HS Qty: 90 3RF Rx Instructions: TAKE 1 CAPSULE AT BEDTIME hydralazine 50 mg tablet 50 mg PO TID Qty: 270 3RF alprazolam 0.5 mg tablet 0.5 mg PO HS PRN (Reason: anxiety) Qty: 90 0RF ascorbic acid (vitamin C) 125 mg tablet,chewable 125 mg PO QAM fluticasone propionate 50 mcg/actuation spray,suspension 2 spray intranasal AMPM Rx Instructions: administer into each nostril furosemide 20 mg tablet 40 mg PO QAM multivitamin Tablet 1 tab PO QAM aspirin 325 mg Tablet 325 mg PO QAM loratadine 10 mg tablet 10 mg PO QAM Rx Instructions: TAKE 1 TABLET BY MOUTH EVERY DAY telmisartan 80 mg tablet 80 mg PO QAM Rx Instructions: TAKE 1 TABLET EVERY MORNING levothyroxine 112 mcg tablet 112 mcg PO DAILYBB rosuvastatin 20 mg tablet 20 mg PO HS Discontinued doxycycline hyclate 100 mg capsule 100 mg PO BID 7 Days Qty: 14 0RF Discharge Orders: Discharge Order (Routine); Ordered 08/18/24 Ordered By: Atif Wright Admission Data Admit Date/Time: 08/14/24 23:49 Attending Provider: Atif Wright Admit Provider: Guero Chand Primary Care Provider: David Bishop Other Providers: Guero Chand Other Interventions: Discharge Summary Assessment (RN) Last Done: 08/18/24 11:00 Hospital Stay Data Consultations 08/14/24 22:59 ED Decision to Admit Stat Diagnostic Imagining Performed 08/15/24 05:03 CT angio chest PE protocol Stat Pending Results Patient Have Any Pending Studies at Discharge: No Discharge Instructions Given to Patient (Per Discharging Provider) Human metapneumovirus (HMPV) is a virus that usually causes symptoms similar to thecommon cold. It often causesupper respiratory infections, but it can sometimes cause lower respiratory infections likepneumonia, asthma flare-ups or make chronic obstructive pulmonary disease (COPD) worse. HMPV infections are more common in the winter and early spring. How common is human metapneumovirus? Researchers estimate that about 10% to 12% of respiratory illnesses in children are caused by HMPV. Most cases are mild, but about 5% to 16% of children will develop a lower respiratory tract infection like pneumonia. What are the symptoms of human metapneumovirus? Symptoms of human metapneumovirus include: Advertisement * Cough. * Fever. * Runny or stuffy nose. * Sore throat. * Wheezing. * Shortness of breath (dyspnea) * Rash. How is human metapneumovirus transmitted? HMPV spreads through direct contact with someone who has it or from touching things contaminated with the virus. For instance: * Coughing and sneezing. * Shaking hands, hugging or kissing. * Touching surfaces or objects like phones, door handles, keyboards or toys. How is human metapneumovirus diagnosed? Healthcare providers usually diagnose HMPV based on your symptoms and health history. They might use a soft-tipped stick (swab) to get a sample from your nose or throat. A lab tests the sample for viruses and other infections. Keep in mind that you probably wont be tested for HMPV unless you have serious symptoms. How is human metapneumovirus treated? There arent any antiviral medications that treat human metapneumovirus. Most people can manage their symptoms at home until they feel better. If you or your child are severely ill, you might need to be admitted to the hospital. There, healthcare providers can monitor your condition and help prevent you from getting sicker. They might treat you with: * Oxygen therapy.If youre having a hard time breathing, a provider may give you extra oxygen through a tube in your nose or mask on your face. * IV fluids.Fluids delivered directly to your vein (IV) can keep you hydrated. * Corticosteroids.Steroids can reduce inflammation and might ease some of your symptoms. Do you need antibiotics for human metapneumovirus? No.Antibioticsonly treat bacteria. Since HMPV is a virus, antibiotics wont get rid of it. Sometimes people who get pneumonia from HMPV also get abacterial infectionat the same time (secondary infection). If your provider prescribes antibiotics, it would be to treat any secondary infections. Prevention Can you prevent a human metapneumovirus infection? You can reduce your risk of getting HMPV and otherinfectious diseasesby: * Washing your hands often with soap and water. If you arent able to use soap and water, use an alcohol-based hand dough scaler and mixer. * Cover your nose and mouth with your elbow, not your bare hand when you sneeze or cough. * Avoid being around other people when you or they are sick with a cold or other contagious diseases. * Consider wearing a mask if youre sick and cant avoid being around others. * Avoid touching your face, eyes, nose and mouth. * Dont share food or eating utensils (forks, spoons, cups) with others. How long does human metapneumovirus last? Mild cases of human metapneumovirus usually last a few days to a week. If youre very sick, itll probably take longer to feel better. You might also have lingering symptoms, like a cough, that take longer to go away. How do I take care of myself? You can manage mild, cold-like symptoms of HMPV at home by: * Drinking lots of fluids to preventdehydration. * Taking xohx-pwf-buaiurn (OTC) medications like pain relievers, decongestants and cough suppressants to help your symptoms. Dont give medications to kids without asking their bladder cleaner first some medications that are OK for adults arent safe for kids. When should I see my healthcare provider? Contact a healthcare provider if: * You or your child has symptoms of a respiratory infection and an underlying condition that puts you or them at an elevated risk for severe illness. * Your symptoms or your josiane symptoms dont start to improve within a few days or if you or your child has a fever lasting longer than three days. When should I go to the ER? Go to the ER or seek immediate medical attention if you or your child has symptoms of severe illness, including: * High fever (over 103 degrees Fahrenheit /40 degrees Celsius). * Difficulty breathing. * Bluish skin, lips or nails (cyanosis). * Worsening of other health conditions. Total Time Total Time Spent Total Time Spent (In Minutes): It required greater than 30 minutes to prepare this patient for discharge. Coding Level of Care Code 98854 INP/OBS DISCH >30 MIN Diagnoses Infection due to human metapneumovirus (hMPV) B34.8 Acute dyspnea R06.00 Essential hypertension I10 Hypertension type: essential hypertension Elevated troponin R79.89
== END 2024-08-18 11:50 | disposition home or self-care (01) | DRG 194 ==
LOC: ED 20:41 → 2W 23:49 → SUATTDRO 23:49 → 2W 08-15 00:14